=== PATIENT | female | born 1965 | race Caucasian/White ===

== ENCOUNTER 2022-12-25 11:34 | Outpatient (OUT) | payer OTHER, MEDICARE, SELFPAY ==
[2022-12-25 12:07] LABS: Basophils Percent Auto 0.5 % (0.2-2.0); Eosinophils Absolute Auto 0.1 10^3/uL (0.0-0.7); Eosinophils Percent Auto 0.9 % (0.9-7.0); Hematocrit 47.8 % (36.0-48.0); Hemoglobin 16.7 g/dL (12.0-16.0); Immature Granulocytes Abs Auto 0.06 10^3/uL (0.00-0.03); Immature Granulocytes Pct Auto 0.8 % (0.0-0.5); Lymphocytes Percent Auto 26.1 % (20.5-60.0); Mean Corpuscular HGB Conc 34.9 g/dL (29.9-35.2); Mean Corpuscular Hemoglobin 32.5 pg (26.7-34.0); Mean Platelet Volume 8.7 fL (9.5-13.5); Monocytes Absolute Auto 0.4 10^3/uL (0.3-0.8); Monocytes Percent Auto 5.3 % (1.7-12.0); Neutrophils Percent Auto 66.4 % (43.0-75.0); Platelet Count 253 10^3/uL (150-450); Red Blood Count 5.14 10^6/uL (4.20-5.40); Red Cell Distribution Width 12.2 % (11.0-15.0); White Blood Count 7.6 10^3/uL (4.0-11.0)
[2022-12-25 12:50] LABS: Estimated Average Glucose 105 mg/dL; Glycohemoglobin A1C 5.3 % (4.5-6.2)
[2022-12-25 13:03] LABS: Alanine Aminotransferase 23 U/L (14-59); Albumin Globulin Ratio 0.9; Albumin Level 3.8 g/dL (3.4-5.0); Alkaline Phosphatase 94 U/L (46-116); Anion Gap 10.4; Aspartate Amino Transferase 16 U/L (15-37); BUN Creatinine Ratio 21.4; Bilirubin Total 0.8 mg/dL (0.2-1.0); Calcium 9.4 mg/dL (8.5-10.1); Carbon Dioxide 29.6 mmol/L (21.0-32.0); Chloride 102 mmol/L (98-107); Chol HDL Ratio 2.9; Cholesterol 164 mg/dL (<=200); Estimated GFR (African America >60 (>=60); Estimated GFR (Non-African Ame >60 (>=60); Free T3 2.73 pg/mL (2.18-3.98); Globulin 4.1 g/dL; Glucose 113 mg/dL (74-106); HDL Cholesterol 57 mg/dL (40-60); Sodium 138 mmol/L (136-145); Thyroid Stimulating Hormone 0.578 uIU/mL (0.358-3.740); Total Protein 7.9 g/dL (6.4-8.2); Triglycerides 214 mg/dL (<=150); VLDL CHOLESTEROL 42.8 mg/dL
[2022-12-26 10:10] LABS: Insulin 13.5 uIU/mL (2.6-24.9)
== END 2022-12-25 11:35 | disposition home or self-care (01) ==
LOC: LAB 11:40
PROVIDERS: PCP Nurse Practitioner Family; Visit Provider Nurse Practitioner Family
DX: Z00.00 Encounter for general adult medical examination without abnormal findings (principal); E78.5 Hyperlipidemia, unspecified; R53.83 Other fatigue; R73.09 Other abnormal glucose; Z51.81 Encounter for therapeutic drug level monitoring
CPT/HCPCS: 36415; 80053; 80061; 82306; 83036; 83525; 83540; 84436; 84443; 84481; 85025

== ENCOUNTER 2023-02-08 12:39 | Outpatient (OUT) | payer OTHER, MEDICARE, SELFPAY ==
--- NOTE | 2023-02-08 12:58 | CT_ITS ---
[address] [address] Patient Name: ANABEL KILGORE MRN: [id number] date: 1965 Sex: F Assigned Patient Location: CT Current Patient Location: Accession/Order Number: [id number] Exam Date: 02/08/2023 12:50 Report Date: 02/09/2023 08:26 At the request of: WING WRIGHT Procedure: CT lung screening low-dose EXAMINATION: CT lung screening low-dose HISTORY: Nicotine Dependence F17.219 COMPARISON: CT chest 01/16/2022, 07/25/2021 TECHNIQUE: Axial, Coronal, and Sagittal images were created without the administration of IV contrast material. Dose reduction techniques were achieved by using automated exposure control and/or adjustment of mA and/or kV according to patient size and/or use of iterative reconstruction technique. FINDINGS: LUNGS: Mild emphysematous changes. No suspicious nodules or acute infiltrates. PLEURA: No mass, effusion, or pneumothorax. VASCULATURE: No abnormality. CARY: No mass or pathologic adenopathy. MEDIASTINUM: No mass or pathologic adenopathy. CARDIAC: No enlargement, pericardial thickening, or significant calcification. AORTA: No aneurysm or dissection. CHEST WALL: No mass or axillary adenopathy BONES: Anterior mechanical fusion of lower cervical spine. No bone lesion or fracture. LIMITED ABDOMEN: No suspicious findings. Limited images of the upper abdomen. OTHER: Negative. CT/CT lung screening low-dose IMPRESSION: 1. Lung-RADS Category 1 Negative. No nodules and definitely benign nodules. Continue annual screening with LDCT in 12 months. Electronically authenticated by: JACKIE NGUYEN Date: 02/09/2023 08:26
== END 2023-02-08 12:40 | disposition home or self-care (01) ==
LOC: CT 12:41
PROVIDERS: PCP Nurse Practitioner Family; Visit Provider Internal Medicine
DX: F17.219 Nicotine dependence, cigarettes, with unspecified nicotine-induced disorders (principal)
CPT/HCPCS: 71271

== ENCOUNTER 2024-01-01 12:58 | Outpatient (OUT) | payer OTHER, MEDICARE, SELFPAY ==
--- OUTSIDE RECORDS SUMMARY | 2024-01-01 13:16 | XMS_ITS | CCD ---
Author Organization [facility]iniSyva Care Team Providers Care Vc++ Developer Name Role Phone Kacey Brown Unavailable KACEY RIVERA Primary Care Physician [phone] SAMSA, WING Consulting Unavailable SAMSA, WING Attending Unavailable MCKAYLA GIVENS Primary Care Unavailable SAMSA, WING Admitting Unavailable SAMSA, WING Admitting Unavailable SAMSA, WING Attending Unavailable MCKAYLA GIVENS Primary Care Unavailable DR JACKIE NGUYEN Consulting Unavailable SAMSA, WING Consulting Unavailable MIGUEL, KACEY Primary Care Unavailable MIGUEL KACEY Consulting Unavailable KACEY RIVERA Attending Unavailable MIGUEL, KACEY Admitting Unavailable MIGUEL, KACEY Primary Care Unavailable SAMSA, WING Attending Unavailable SAMSA, WING Admitting Unavailable JANINE, DR AWAIS Cheatham Consulting Unavailable SAMSA, WING Consulting Unavailable MIGUEL, KACEY Admitting Unavailable MIGUEL, KACEY Primary Care Unavailable MIGUEL, KACEY Attending Unavailable WEST, DR AWAIS Cheatham Consulting Unavailable MIGUEL, KACEY Consulting Unavailable MISC, DR WORKMAN Attending Unavailable MISC, DR WORKMAN Admitting Unavailable MCKAYLA GIVENS Primary Care Unavailable MISC, DR WORKMAN Admitting Unavailable MISC, DR WORKMAN Attending Unavailable MCKAYLA GIVENS Primary Care Unavailable MIGUEL, KACEY Admitting Unavailable MIGUEL, KACEY Primary Care Unavailable MIGUEL KACEY Consulting Unavailable KACEY RIVERA Attending Unavailable MD Mckayla Givens Primary Care Provider CAL Brown Attending Provider Kacey Brown Attending Unavailable Kacey Brown Admitting Unavailable Mckayla Givens Primary Care Unavailable NONE, XXXX Referring Unavailable Adriel Brantley Attending Unavailable NONE, XXXX Referring Unavailable Jacky Thomson Admitting Unavaila ble Jacky Thomson Attending Unavaila ble Allergies Allergy Classification Reported Allergen(s) Allergy Type Date of Onset Reaction(s) Facility (8 sources) HYDROmorphone; Translations: [hydromorphone] Drug Allergy 0 Vomiting (disorder) [facility] (2 sources) HYDROmorphone; Translations: [Dilaudid] Drug Allergy 4 [facility] Repository (1 source) HYDROmorphone Drug Allergy 3 [facility] Repository Medications Current Medications Medication Drug Class(es) Dates Sig (Normalized) Sig (Original) [id number] 200 actuat albuterol 0.09 mg/actuat metered dose inhaler (4 sources) beta2-Adrenergic Agonist Start: 12-15-2019 take 1 puff(s) by inhalation every four hours Albuterol Sulfate Active 2 PUFF INHALATION Q4H December 14, 2019 11:00pm take 2 puff(s) by mo uth every four hours as needed Albuterol Sulfate HFA 108 (90 Base) MCG/ ACT INHALE 2 PUFFS BY MOUTH EVERY 4 HOURS NEEDED FOR SHORTNESS OF BREATH Inhalation for 16 Active take 2 puff(s) by mo uth every four hours as needed Albuterol Sulfate HFA 108 (90 Base) MCG/ ACT INHALE 2 PUFFS BY MOUTH EVERY 4 HOURS NEEDED FOR SHORTNESS OF BREATH Inhalation for 16 Active amLODIPine 5 mg oral tablet (1 source) Dihydropyridine Calcium Channel David Start: 04-15-2020 take 1 tablet by mouth once daily amLODIPine 5 mg Tab 5 mg = 1 tab(s), Oral, Daily, # 30 tab(s), Refills(s) 6, Pharmacy: [facility]/pharmacy #[id number], 160, cm, 04/15/20 13:43:00 EST, Height/Length Dosing, 59, kg, 04/15/20 13:43:00 EST, Weight Dosing Start Date: 04/15/20 Status: Ordered aspirin 81 mg delayed release oral tablet (8 sources) Platelet Aggregation Inhibitor, Nonsteroidal Anti-inflammatory Drug Start: 08-01-2018 take 1 tablet by mouth once daily aspirin 81 mg Oral EC Tab 81 mg = 1 tab(s), Oral, Daily, # 30 tab(s), Refills(s) 0 Start Date: 08/01/18 Status: Ordered take 1 tablet by mouth once tulio y Aspirin 81 81 MG 1 tablet Orally Once a day Active atorvastatin 40 mg oral tablet (2 sources) HMG-CoA Reductase Inhibitor Start: 05-28-2023 atorvastatin 40 mg Tab Refills(s) 0 Start Date: 05/28/23 Status: Ordered cephalexin 500 mg oral capsule (1 source) Cephalosporin Antibacterial Start: 12-23-2019 take 1 capsule by mouth every eight hours Cephalexin (Keflex) 500 mg capsule Active 500 MG PO Q8H December 22, 2019 11:00pm clopidogrel 75 mg oral tablet (1 source) P2Y12 Platelet Inhibitor Start: 12-15-2019 take 75 mg by mouth once daily Clopidogrel Active 75 MG PO Daily December 14, 2019 11:00pm cyclobenzaprine hydrochloride 10 mg oral tablet (1 source) Muscle Relaxant Start: 12-23-2019 take 10 mg by mouth three times daily Cyclobenzaprine Active 10 MG PO Three times daily December 22, 2019 11:00pm 120 actuat formoterol fumarate 0.0048 mg/actuat / glycopyrrolate 0.009 mg/actuat metered dose inhaler (4 sources) beta2-Adrenergic Agonist Start: 12-15-2019 Glycopyrrolate-Formo terol (Bevespi Aerosphere) 9-4.8 mcg Hfa Aerosol Inhaler Active 2 PUFF INHALATION Twice daily December 14, 2019 11:00pm take 2 puff(s) by mo ut twice daily as needed Bevespi Aerosphere 9-4.8 MCG/ACT INHALE 2 PUFFS BY MOUTH TWICE A DAY Inhalation for 30 Not-Taking/PRN 24 hr isosorbide mononitrate 30 mg extended release oral tablet (7 sources) Nitrate Vasodilator Start: 09-10-2023 take 1 tablet by mouth once daily in the morning isosorbide mononitrate 30 mg ER Tab 30 mg = 1 tab(s), Oral, qAM, # 90 tab(s), Refills(s) 3, Pharmacy: [facility]/pharmacy #[id number], 160, cm, 05/28/23 13:19:00 EDT, Height/Length Dosing, 62.6, kg, 05/28/23 13:19:00 EDT, Weight Dosing Start Date: 09/10/23 Status: Ordered Start: 06-15-2022 take 1 tablet by james th once daily in the morning isosorbide mononitrate 30 mg ER Tab 30 mg = 1 tab(s), Oral, qAM, # 90 tab(s), Refills(s) 3, Pharmacy: [facility]/pharmacy #[id number], 160, cm, 06/15/22 12:54:00 EDT, Height/Length Dosing, 63.8, kg, 06/15/22 12:54:00 EDT, Weight Dosing Start Date: 06/15/22 Status: Ordered Start: 05-02-2021 take 1 tablet by james th once daily in the morning isosorbide mononitrate 30 mg ER Tab 30 mg = 1 tab(s), Oral, qAM, # 90 tab(s), Refills(s) 3, Pharmacy: [facility]/pharmacy #[id number], 160, cm, 04/15/20 13:43:00 EST, Height/Length Dosing, 59, kg, 04/15/20 13:43:00 EST, Weight Dosing Start Date: 05/02/21 Status: Ordered Isosorbide [place] itrate Active lisinopril 20 mg oral tablet (8 sources) Angiotensin Converting Enzyme Inhibitor Start: 06-15-2022 take 1 tablet by mouth once daily lisinopril 20 mg Tab 20 mg = 1 tab(s), Oral, Daily, # 90 tab(s), Refills(s) 3, Pharmacy: [facility]/pharmacy #[id number], 160, cm, 06/15/22 12:54:00 EDT, Height/Length Dosing, 63.8, kg, 06/15/22 12:54:00 EDT, Weight Dosing Start Date: 06/15/22 Status: Ordered Start: 12-15-2019 take 1 tablet by james th once daily lisinopril 10 mg Tab 10 mg = 1 tab(s), Oral, Daily, # 90 tab(s), Refills(s) 1, Pharmacy: [facility]/pharmacy #[id number], 160, cm, 04/15/20 13:43:00 EST, Height/Length Dosing, 59, kg, 04/15/20 13:43:00 EST, Weight Dosing Start Date: 05/02/21 Status: Ordered take 1 tablet by james th once daily Lisinopril 2.5 MG TAKE 1 TABLET BY MOUTH EVERY DAY Oral for 90 Active Nitro 0.4 mg Tab (3 sources) Start: 05-25-2021 Nitro 0.4 mg T ab = 1 tab(s), SubLingual, q5min, PRN Chest pain, If chest pain not relieved in 5 minutes after first dose, seek immediate medical attention, # 25 tab(s), Refills(s) 1, Pharmacy: [facility]/pharmacy #[id number], 160, cm, 05/17/21 13:29:00 EST, Height/Length Dosing, 60, kg, 05/17/21 13:29:00 EST, Weight Dosing Start Date: 05/25/21 Status: Ordered Start: 05-25-2021 Nitro 0.4 mg T ab = 1 tab(s), SubLingual, q5min, PRN Chest pain, If chest pain not relieved in 5 minutes after first dose, seek immediate medical attention, # 25 tab(s), Refills(s) 1, Pharmacy: [facility]/pharmacy #[id number], 160, cm, 05/17/21 13:29:00 EST, Height/Length Dosing, 6... Start Date: 05/25/21 Status: Ordered nitrofurantoin, macrocrystals 25 mg / nitrofurantoin, monohydrate 75 mg oral capsule (2 sources) Nitrofuran Antibacterial Start: 02-21-2023 take 1 capsule by mouth every twelve hours Macrobid 100 MG 1 cap(s) Orally bid for 5 day(s) Feb, Active nitroglycerin 0.4 mg/actuat mucosal spray (1 source) Nitrate Vasodilator Start: 05-25-2021 Nitro 0.4 mg Tab = 1 tab(s), SubLingual, q5min, PRN Chest pain, If chest pain not relieved in 5 minutes after first dose, seek immediate medical attention, # 25 tab(s), Refills(s) 1, Pharmacy: [facility]/pharmacy #[id number], 160, cm, 05/17/21 13:29:00 EST, Height/Length Dosing, 6... Start Date: 05/25/21 Status: Ordered oxyCODONE hydrochloride 5 mg oral capsule (1 source) Opioid Agonist Start: 12-23-2019 take 5-10 mg by mouth every six hours Oxycodone Active 5 - 10 MG PO Q6H 60 December 23, 2019 phenazopyridine hydrochloride 200 mg oral tablet (2 sources) Start: 02-21-2023 take 1 tablet by mouth every eight hours Pyridium 200 MG 1 tablet after meals Orally Three times a day for 2 day(s) Feb, Active 12 hr ranolazine 1000 mg extended release oral tablet (2 sources) Anti-anginal Start: 06-15-2022 take 1 tablet by mouth twice daily ranolazine 1000 mg oral tablet, extended release 1,000 mg = 1 tab(s), Oral, BID, # 180 tab(s), Refills(s) 3, Pharmacy: [facility]/pharmacy #[id number], 160, cm, 06/15/22 12:54:00 EDT, Height/Length Dosing, 63.8, kg, 06/15/22 12:54:00 EDT, Weight Dosing Start Date: 06/15/22 Status: Ordered rosuvastatin calcium 40 mg oral tablet (6 sources) HMG-CoA Reductase Inhibitor Start: 12-15-2019 End: 07-27-2022 take 1 tablet by mouth once daily at bedtime rosuvastatin 40 mg Tab 40 mg = 1 tab(s), Oral, Once a day (at bedtime), X 90 day(s), # 90 tab(s), Refills(s) 3, Pharmacy: [facility]/pharmacy #[id number], 160, cm, 05/17/21 13:29:00 EST, Height/Length Dosing, 60, kg, 05/17/21 13:29:00 EST, Weight Dosing Start Date: 08/01/21 Stop Date: 07/27/22 Status: Ordered ubiquinol 100 mg oral capsule (2 sources) Qunol Ultra CoQ1 0 100-150 MG-UNIT as directed Orally Active Ventolin HFA 90 mcg/inh Aerosol (4 sources) Start: 02-01-2015 Ventolin HFA 90 mcg/inh Aerosol 2 puff(s), Inhalation, Refill(s) 0 Start Date: 02/01/15 Status: Ordered Completed/Discontinued Medications Medication Drug Class(es) Dates Sig (Normalized) Sig (Original) Blood Pressure Machine with Adult Bicep Cuff (4 sources) Start: 11-03-2019 Blood Pressure Machine with Adult Bicep Cuff Blood Pressure Machine with Adult Bicep Cuff, See Instructions, 1 EA, 0, Monitor Daily BP readings Dx I10, Supply Start Date: 11/03/19 Status: Ordered predniSONE 20 mg oral tablet (4 sources) Start: 07-13-2021 take 1 tablet by mouth every twelve hours predniSONE 20 MG 1 tablet Orally bid for 5 day(s) July, Not-Taking/PRN Start: 04-04-2020 predniSONE 10 mg Tab -, Oral, As Directed, 6 tabs for 1 days,5 tabs for 1 days,4 tabs for 1 days,3 tabs for 1 days,2 tabs for 1 days,1 tab for 1 days, # 42 tab(s), Refills(s) 0 Start Date: 04/04/20 Status: Ordered Wrist Splint/Right XL - (3 sources) Start: 07-13-2021 Wrist Splint/R ight XL - as directed tendonitis right thumb July, Not-Taking/PRN Start: 07-13-2021 Wrist Splint/R ight XL - as directed tendonitis right thumb July, Active Problems Active Problems Problem Classification Problem Date Documented Da te Episodic/Chronic Chronic obstructive pulmonary disease and bronchiectasis (9 sources) Chronic obstructive lung disease; Translations: [Chronic obstructive pulmonary disease, unspecified] Onset: 10-06-2021 Chronic Coronary atherosclerosis and other heart disease (7 sources) Coronary atherosclerosis; Translations: [Atherosclerotic heart disease of [place] coronary artery without angina pectoris] Onset: 11-18-2021 Chronic Essential hypertension (7 sources) Essential hypertension; Translations: [Essential (primary) hypertension] Onset: 11-18-2021 Chronic Genitourinary symptoms and ill-defined conditions (3 sources) Dysuria; Translations: [Dysuria] Onset: 02-21-2023 Episodic Nonspecific chest pain (2 sources) Chest pain; Translations: [Chest pain, unspecified] Onset: 06-15-2022 Episodic Other circulatory disease (4 sources) Peripheral arterial occlusive disease 02-01-2015 Chronic Other lower respiratory disease (4 sources) Solitary pulmonary nodule; Translations: [SOLITARY PULMONARY NODULE] Onset: 01-16-2022 Episodic Other nervous system disorders (1 source) Disease of spinal cord, unspecified; Translations: [DISEASE OF SPINAL CORD UNSPECIFIED] Onset: 04-11-2021 Chronic Other nervous system disorders (1 source) Postoperative pain ; Translations: [Other acute postprocedural pain] 02-21-2023 Episodic Other screening for suspected conditions (not mental disorders or infectious disease) (5 sources) Encounter for screening mammogram for malignant neoplasm of breast; Translations: [Encounter for screening for malignant neoplasm of respiratory organs] Onset: 07-29-2021 Episodic Residual codes; unclassified (1 source) Family history of malignant neoplasm of breast; Translations: [FAMILY HX MALIG NEOPLASM OF BREAST] Onset: 01-08-2022 Episodic Residual codes; unclassified (1 source) Family history of malignant neoplasm of trachea, bronchus and lung; Translations: [FAM HX MALIG NEOPLSM TRACH BRON LNG] Onset: 01-08-2022 Episodic Spondylosis; intervertebral disc disorders; other back problems (4 sources) Cervical disc disorder with myelopathy; Translations: [Cervical disc disorder at C5-C6 level with myelopathy] 02-21-2023 Chronic Spondylosis; intervertebral disc disorders; other back problems (6 sources) Cervical disc disorder with radiculopathy; Translations: [Cervical disc disorder at C6-C7 level with radiculopathy] Episodic Substance-related disorders (10 sources) Nicotine dependence; Translations: [Nicotine dependence, unspecified, uncomplicated] Onset: 07-25-2021 Chronic Comment on above: Added secondary to d ocumentation in Social History. Urinary tract infections (2 sources) Acute cystitis with hematuria Episodic Past or Other Problems Problem Classification Problem Date Documented Date Episodic/Chronic Other connective tissue disease (1 source) Pain in right hand Onset: 07-13-2021 Resolved: 07-13-2021 Episodic Other connective tissue disease (1 source) Other enthesopathies, not elsewhere classified Onset: 07-13-2021 Resolved: 07-13-2021 Episodic Other connective tissue disease (1 source) Other symptoms and signs involving the musculoskeletal system; Translations: [OTH SX AND SYMP INVOLV MUSCULOSKELTAL] Onset: 04-11-2021 Episodic Other nervous system disorders (4 sources) Paresthesia of skin; Translations: [PARESTHESIA OF SKIN] Onset: 04-07-2021 Episodic Results Test Name Value Interpretation Reference Range Facility Heart and Vascular Office/Cl inic Noteon 11-16-2023 Heart and Vascular Office/Clinic Note [facility] V[facility] Office/Clinic Note Chief Complaint 6 month f/u CAD History of Present Illness The patient is a 58-year-old female with past cardiac history of coronary artery disease, multiple PCI in the past, with last invasive assessment in 2019, who presents today for a scheduled follow-up appointment. She used to follow with Dr. Thomson. She states that she has been feeling quite well cardiac garcia. She specifically reports no chest pain, shortness of breath, dizziness, lightheadedness, palpitations, syncope or presyncope. States compliance with the current treatment plan. Denies any side effects. Unfortunately, still continues to smoke. Review of Systems ROS - Provider Constitutional: no fever, no chills, no fatigue Skin:no rash, no lesions ENMT: no ear pain, no sore throat, no congestion. Respiratory: no shortness of breath, no cough, no wheezing. Cardiovascular: no chest pain, no palpitations, no edema. Gastrointestinal: no nausea, no vomiting, no diarrhea, no GI bleeding. Genitourinary: no dysuria, no frequencyno hematuria Musculoskeletal: no back pain, no trauma. Neurologic: no headache, no dizziness, no numbness, no weakness. Psychiatric: no sleeping problems, no irritability, no mood swings/depression. Heme/Lymph: no bleeding tendency, no bruising tendency, no petechiae, Allergy/Immuno logic: no seasonal allergies, no food allergies, no recurrent infections Physical Exam Vitals & Measurements HR: 104(Peripheral) RR: 18 BP: 122/78 SpO2: 96% HT: 63 in HT: 160 cm WT: 59.5 kg WT: 130.9 lb BMI: 23.24 General: alert, no acute distress Neck: Supple, noJVD nocarotid bruit Cardiovascular: regular rate and rhythm, no murmur normal peripheral perfusion Respiratory: Lungs CTAB, respirations non labored Extremities: no edema left lower extremity. no edema right lower extremity Neurological: oriented x 4, LOC appropriate for age, speech normal Skin: Warm, dry, intact- no rash or concerning lesions Assessment/Plan 1. CAD (coronary artery disease) (I25.10: Atherosclerotic heart disease of [place] coronary artery without angina pectoris) The patient is doing well and asymptomatic from the cardiac standpoint. I would like to continue same management. The patient was advised to quit smoking. Lipids are managed by primary services. Historically, very well-controlled LDL. Continue high intensity statin. Can provide refill for nitroglycerin as needed if necessary 2. HTN (hypertension) (I10: Essential (primary) hypertension) Blood pressure is well-controlled. Follow-up No qualifying data available 6 months Problem List/Past Medical History Ongoing CAD (coronary artery disease) COPD (chronic obstructive pulmonary disease) HTN (hypertension) PAD (peripheral artery disease) Smoker Historical No qualifying data Procedure/Surgical History Cardiac catheterization, left heart (04/05/2020), PCI - Percutaneous coronary intervention (07/30/2018), Ectopic (1982). Medications aspirin 81 mg Oral EC Tab, 81 mg= 1 tab(s), Oral, Daily atorvastatin 40 mg Tab Blood Pressure Machine with Adult Bicep Cuff, See Instructions isosorbide mononitrate 30 mg ER Tab, 30 mg= 1 tab(s), Oral, qAM, 3 refills lisinopril 20 mg Tab, 20 mg= 1 tab(s), Oral, Daily, 3 refills Nitro 0.4 mg Tab, 1 tab(s), SubLingual, q5min, PRN, 1 refills Ventolin HFA 90 mcg/inh Aerosol, 2 puff(s), Inhalation Allergies Dilaudid (Vomiting) Social History Alcohol - High Risk, 02/01/2015 Current, Liquor, 1-2 times per week, 02/01/2015 Substance Abuse - Denies Substance Abuse, 02/01/2015 Tobacco - High Risk, 02/01/2015 10 or more cigarettes (1/2 pack or more)/day in last 30 days Tobacco Use:. Never Smokeless Tobacco Use:. Cigarettes, Household tobacco concerns: No., 11/16/2023 Family History Heart disease: Father. Normal [facility] Comment on above: Result Comment: Elec tronically Signed By: Karon ANTHONY, Adriel De León\.br\Date and Time Signed: 11/16/23 13:09 EDT Heart and Vascular Office/Cl inic Noteon 06-20-2023 Heart and Vascular Office/Clinic Note Chief Complaint annual follow up History of Present Illness The patient presents for evaluation of multiple medical concerns. Patient has a history of CAD and peripheral arterial disease with prior PCI. The patient denies any chest pain, nausea, diaphoresis, orthopnea, nocturnal dyspnea, lower extremity edema, palpitations, syncope. She experiences mild difficulty breathing, primarily attributed to her COPD. However, finding the appropriate inhalers has been challenging due to insurance coverage limitations. Despite this, she has not reported any chest pains. Her leg issues have improved notably. Since starting COQ10, she has noticed a significant reduction in leg cramps. She no longer wakes up with toe cramps or jumps out of bed due to discomfort. Additionally, her calf muscles have not been locking up while walking. Review of Systems PHQ Score Initial Depression Screen Score: 0 SCORE Constitutional: no fever, no sweats, no weakness Skin: no rash, no lesions, no bruising/petechiae ENMT: no sore throat, no congestion, no hoarseness Respiratory: no shortness of breath, no cough, no orthopnea, no wheezing Cardiovascular: no chest pain, no palpitations, no edema Gastrointestinal: no nausea, no vomiting, no diarrhea, no GI bleeding Genitourinary: no anuria/oliguria no hematuria Musculoskeletal: no back pain, no trauma Neurologic: no headache, no dizziness, no numbness, no weakness Psychiatric: no sleeping problems, no irritability, no anxiety/depression. Heme/Lymph: no bleeding tendency, no bruising tendency Allergy/Immunologic: no recurrent infections, no impaired immunity Additional ROS info: Except as noted in the above Review of Systems and in the History of Present Illness all other systems have been reviewed and are negative or noncontributory Physical Exam Vitals & Measurements HR: 80(Peripheral) BP: 120/88 SpO2: 94% HT: 63 in HT: 160 cm WT: 62.6 kg WT: 137.72 lb BMI: 24.45 General: alert, no acute distress Skin: warm, dry intact Head: atraumatic, normocephalic Neck: trachea midline, no JVD, no bruit Eye: normal conjunctiva, sclera clear ENMT: oral mucosa moist Cardiovascular: regular rate and rhythm, no murmur, normal peripheral perfusion Respiratory: lungs CTA, respirations non labored Chest wall: no deformity. Gastrointestinal: soft, non-distended, no tenderness, no guarding. Back: no tenderness, normal ROM, normal alignment. Extremities: no edema, no deformity, no trauma Neurological: oriented x 4, LOC appropriate for age, sensation equal & normal bilaterally, speech normal Psychiatric: cooperative, affect appropriate for age, normal judgement, normal psychiatric thoughts. Assessment/Plan Her blood pressure and heart rate look great. Continue current treatment follow-up in 6 months 1. CAD: APT, beta-david, statin, risk factor modification. 2. HTN: BP control with antihypertensives targeting blood pressure less than 130/80. If control is not currently achieved we will be adding additional antihypertensive or increasing dose. 3. HPL: HPL: Statin is indicated. Patient is not intolerant to statin. Continue current therapy and monitor lipid panel yearly. 4. PAD: Clinically stable no significant claudication Follow-up The patient will follow up in 6 months. Portions of this record may have been created with voice recognition artificial intelligence software, specifically [employer], [employer] and or [employer]. Substitutions may have occurred due to the inherent limitations of voice recognition and artificial intelligence software. ATTESTATION: Documentation services were performed after patient or guardian consented to allow [employer] to record this visit. BRETT human resources operations specialist and provider reviewed before signing. BRETT: Perla Emerson Follow-up No qualifying data available Problem List/Past Medical History Ongoing CAD (coronary artery disease) COPD (chronic obstructive pulmonary disease) HTN (hypertension) PAD (peripheral artery disease) Smoker Historical No qualifying data Procedure/Surgical History Cardiac catheterization, left heart (04/05/2020), PCI - Percutaneous coronary intervention (07/30/2018), Ectopic (1982). Medications aspirin 81 mg Oral EC Tab, 81 mg= 1 tab(s), Oral, Daily atorvastatin 40 mg Tab Blood Pressure Machine with Adult Bicep Cuff, See Instructions isosorbide mononitrate 30 mg ER Tab, 30 mg= 1 tab(s), Oral, qAM, 3 refills lisinopril 20 mg Tab, 20 mg= 1 tab(s), Oral, Daily, 3 refills Nitro 0.4 mg Tab, 1 tab(s), SubLingual, q5min, PRN, 1 refills ranolazine 1000 mg oral tablet, extended release, 1000 mg= 1 tab(s), Oral, BID, 3 refills, Not taking Ventolin HFA 90 mcg/inh Aerosol, 2 puff(s), Inhalation Allergies Dilaudid (Vomiting) Social History Alcohol - High Risk, 02/01/2015 Current, Liquor, 1-2 times per week, 02/01/2015 Substance Abuse - Denies Substance Abuse, (more content not included)... Normal [facility] Comment on above: Result Comment: Elec tronically Signed By: Berto ANTHONY, Jacky Ashley\.br\Date and Time Signed: 06/20/23 11:57 EDT\.br\Electronically Co-Signed By: Perla Emerson\.br\Date and Time Co-Signed: 05/28/23 14:17 EDT Consent for Treatmenton 05-10 Consent for Treatment [id number] .00TIFF Normal [facility] Physician Orderon 05-28-2023 Physician Order [id number]# 1.00TIFF Normal [facility] Outside Recordson 02-21-2023 Outside Records [id number]# 1.00TIFF Normal [facility] Urinalysis - AUTOMATEDon Appearance (U) cloudy [employer] Other Bilirubin Ql (U) Negative [employer] Other Color (U) yellow [employer] Other Glucose Ql (U) Negative [employer] Other Hemoglobin Ql (U) [employer] Other Ketones Ql (U) Negative [employer] Other Leukocyte esterase Test strip Ql (U) Networked [employer] Other Nitrite Ql (U) Negative [employer] Other pH (U) 6.5 [pH] [employer] Other Protein Ql (U) Negative [employer] Other Specific gravity (U) [Rel density] 1.025 [employer] Other Urobilinogen (U) [Mass/Vol] 0.2 mg/dL [employer] Other Urinalysis - AUTOMATED [employer] [facility] [employer] Other Urine Cultureon 02-21-2023 Bacteria identified Cx Nom (U) Reason for Exam Dysuria Urine Reason for Exam: Dysuria : Urine >100,000 colonies/ml mixed bacterial skin contaminants 2 Days PERFORMED BY: [facility] [address] [id number] PATHOLOGIST MEDICAL STAFF CREDENTIALING COORDINATOR SRINIVAS BRAVO M.D. Normal [facility] Comment on above: Performed By: #### C UU #### [facility] [address] [place], [place] [address] Bacteria identified Cx Nom (U) [employer] [facility] [employer] Other LIPID PROFILEon 02-09-2022 CHOL-HDL RATIO NORM SEE BELOW Normal [facility] [place] Comment on above: Result Comment: 3.3 - 4.4 LOW RISK 4.4 - 7.1 AVERAGE RISK 7.1 - 11.0 MODERATE RISK >11.0 HIGH RISK Performed By: #### L IPID #### [facility] [address] [address] [address] Carolynn Hook Cholesterol [Mass/Vol] 149 mg/dL Normal <=200 [facility] Comment on above: Performed By: #### L IPID #### [facility] [address] [address] [address] Carolynn Hook Cholesterol in HDL [Mass/Vol] 50 mg/dL Normal 40-60 [facility] Comment on above: Performed By: #### L IPID #### [facility] [address] [address] [address] Carolynn Hook Cholesterol in LDL [Mass/Vol] 57.6 mg/dL Normal [facility] Comment on above: Performed By: #### L IPID #### [facility] [address] [address] [address] Carolynn Hook Cholesterol.total/C holesterol in HDL [Mass ratio] 3.0 {ratio} Normal [facility] Comment on above: Performed By: #### L IPID #### [facility] [address] [place], [place] [address] Dr. Carolynn Hook HDL NORMAL > or = 60 mg/dl - LO W CARDIOVASCULAR RISK <40 mg/dl - HIGH CARDIOVASCULAR RISK Normal [facility] Comment on above: Performed By: #### L IPID #### [facility] [address] [place], [place] [address] Dr. Carolynn Hook LDL CALC NORMAL SEE BELOW Normal [facility] Comment on above: Result Comment: <100 mg/dl OPTIMAL 100 - 129 mg/dl NEAR OR ABOVE OPTIMAL 130 - 159 mg/dl BORDERLINE HIGH 160 - 189 mg/dl HIGH >190 mg/dl VERY HIGH Performed By: #### L IPID #### [facility] [address] [address] [address] Carolynn Hook Triglyceride [Mass/Vol] 207 mg/dL Critically high <=150 [facility] Comment on above: Performed By: #### L IPID #### [facility] [address] [address] [address] Carolynn Hook VLDL CALC 41.4 mg/dL Normal [facility] Comment on above: Performed By: #### L IPID #### [facility] [address] CHEST WO CONon 01-17-2022 CT CHEST WO CON EXAMINATION: CT CHES T WO CON HISTORY: Solitary nodule of lung COMPARISON: 07/25/2021 TECHNIQUE: Multi-planar CT images were created with IV contrast. Axial, Coronal, and Sagittal images. Dose reduction techniques were achieved by using automated exposure control and/or adjustment of mA and/or kV according to patient size and/or use of iterative reconstruction technique. FINDINGS: LUNGS: Diffuse peribronchial thickening. Mild diffuse centrilobular emphysema. Scattered punctate pulmonary nodules, nonspecific. There is been interval resolution of geographic groundglass opacity in the left lower lobe. PLEURA: No mass, effusion, or pneumothorax. VASCULATURE: No abnormality. CARY: No mass or adenopathy. MEDIASTINUM: No mass or adenopathy. CARDIAC: No cardiomegaly or pericardial effusion. Heavy coronary atherosclerosis AORTA: No aneurysm or dissection. CHEST WALL: No mass or axillary adenopathy. BONES: No bone lesion or fracture. Cervical fusion hardware LIMITED ABDOMEN: No suspicious findings. Limited images of the upper abdomen. OTHER: Negative. IMPRESSION: Interval resolution of left lower lobe nodule Electronically authenticated by: AWAIS MEHTA Date: 2022-01-17 07:19 Normal [facility] MG MAMM SCREEN 3D SADA CADon 01-02-2022 MG MAMM SCREEN 3D SADA CAD Patient: CARMEN KILGORE V. Exam Date: 01/02/2022 : 1965 Gender:F Ordering : KACEY RIVERA [facility] Admission #: [id number] Family : Order #: [id number] CLICK HERE TO VIEW EXAM RADIOLOGY REPORT PROCEDURE: MAMMOGRAM SCREENING 3D BILATERAL CAD COMPARISON: None. INDICATIONS: Screening mammography Calculator Name NCI Breast Cancer Risk Assessment Tool 5 Year Breast Cancer Risk 2.50% Lifetime Breast Cancer Risk 14.50% Personal Breast Cancer No Personal Ovarian Cancer No Treatments None Family Cancers Mother with breast cancer at age 46; Mother with lung cancer at age 45. LOCATION: [facility] BREAST COMPOSITION: Scattered areas fibroglandular density. FINDINGS: DIAGNOSTIC CATEGORY 2--BENIGN FINDING: Scattered benign-appearing calcifications are present. Scattered benign-appearing lymph nodes are present. RIGHT BREAST: No significant suspicious finding. LEFT BREAST: No significant suspicious finding. RECOMMENDATIONS: ROUTINE MAMMOGRAM AND CLINICAL EVALUATION IN 12 MONTHS. PLEASE NOTE: A NORMAL MAMMOGRAM DOES NOT EXCLUDE THE POSSIBILITY OF BREAST CANCER. A CLINICALLY SUSPICIOUS PALPABLE LUMP SHOULD BE BIOPSIED. Dictated by: Awais Mehta MD on 01/02/2022 at 13:05 Approved by: Awais Mehta MD on 01/02/2022 at 13:06 Normal [facility] INSULINon 11-01-2021 Insulin 12.8 uIU/mL Normal 2.6-24.9 [facility] Comment on above: Performed By: #### I NSULIN #### [facility] [address] [address] [address] Carolynn Hook T4, T3U, FTI LABCORPon 11-01 Free Thyroxine Index 2.4 Normal 1.2-4.9 [facility] Comment on above: Performed By: #### T HYLC #### [facility] [address] [address] [address] Carolynn Hook T3 Uptake 25 % Normal 24-39 [facility] Comment on above: Performed By: #### T HYLC #### [facility] [address] [place] [address] Dr. Carolynn Hook T4 [Mass/Vol] 9.5 ug/dL Normal 4.5-12.0 [facility] Comment on above: Performed By: #### T HYLC #### [facility] [address] [place] [address] Dr. Carolynn Hook CBC AUTO DIFFon 10-31-2021 BASO # 0.0 103/ul Normal 0.0-0.1 [facility] Comment on above: Performed By: #### C BC #### [facility] [address] [place] [address] Dr. Carolynn Hook Basophils/100 WBC (Bld) 0.5 % Normal 0.2-2.0 [facility] Comment on above: Performed By: #### C BC #### [facility] [address] [place] [address] Dr. Carolynn Hook EO # 0.1 103/ul Normal 0.0-0.7 [facility] Comment on above: Performed By: #### C BC #### [facility] [address] [place] [address] Dr. Carolynn Hook Eosinophils/100 WBC (Bld) 2.1 % Normal 0.9-7.0 [facility] Comment on above: Performed By: #### C BC #### [facility] [address] [place] [address] Dr. Carolynn Hook Erythrocyte distribution width (RBC) [Ratio] 12.8 % Normal 11.0-15.0 [facility] Comment on above: Performed By: #### C BC #### [facility] [address] [place] [address] Dr. Carolynn Hook Hematocrit (Bld) [Volume fraction] 49.3 % Critically high 36.0-48.0 [facility] Comment on above: Performed By: #### C BC #### [facility] [address] [place] [address] Dr. Carolynn Hook Hemoglobin (Bld) [Mass/Vol] 16.7 g/dL Critically high 12.0-16.0 [facility] Comment on above: Performed By: #### C BC #### [facility] [address] [place] [address] Dr. Carolynn Hook IG # 0.07 10e3/ul Critically high 0.00-0.03 [facility] Comment on above: Performed By: #### C BC #### [facility] [address] [place] [address] Dr. Carolynn Hook IG % 1.3 % Critically high 0.0-0.5 [facility] Comment on above: Performed By: #### C BC #### [facility] [address] [place] [address] Dr. Carolynn Hook LYMPH # 1.5 103/ul Normal 1.2-3.8 [facility] Comment on above: Performed By: #### C BC #### [facility] [address] [place] [address] Dr. Carolynn Hook Lymphocytes/100 WBC (Bld) 27.0 % Normal 20.5-60.0 [facility] Comment on above: Performed By: #### C BC #### [facility] [address] [place] [address] Dr. Carolynn Hook MANUAL DIFF REQ NO Normal [facility] Comment on above: Performed By: #### C BC #### [facility] [address] [place] [address] Dr. Carolynn Hook MCH (RBC) [Entitic mass] 31.9 pg Normal 26.7-34.0 [facility] Comment on above: Performed By: #### C BC #### [facility] [address] [place] [address] Dr. Carolynn Hook MCHC (RBC) [Mass/Vol] 33.9 g/dL Normal 29.9-35.2 [facility] Comment on above: Performed By: #### C BC #### [facility] [address] [place] [address] Dr. Carolynn Hook MCV (RBC) [Entitic vol] 94.1 fL Normal 81.0-99.0 [facility] Comment on above: Performed By: #### C BC #### [facility] [address] [place] [address] Dr. Carolynn Hook MONO # 0.5 103/ul Normal 0.3-0.8 [facility] Comment on above: Performed By: #### C BC #### [facility] [address] [place] [address] Dr. Carolynn Hook Monocytes/100 WBC (Bld) 8.2 % Normal 1.7-12.0 [facility] Comment on above: Performed By: #### C BC #### [facility] [address] [place] [address] Dr. Carolynn Hook NEUT # 3.4 103/ul Normal 1.4-6.5 [facility] Comment on above: Performed By: #### C BC #### [facility] [address] [place] [address] Dr. Carolynn Hook Neutrophils/100 WBC (Bld) 60.9 % Normal 43.0-75.0 [facility] Comment on above: Performed By: #### C BC #### [facility] [address] [place] [address] Dr. Carolynn Hook Platelet mean volume (Bld) [Entitic vol] 8.6 fL Critically low 9.5-13.5 [facility] Comment on above: Performed By: #### C BC #### [facility] [address] [place] [address] Dr. Carolynn Hook PLT 239 103/ul Normal 150-450 [facility] Comment on above: Performed By: #### C BC #### [facility] [address] [place] [address] Dr. Carolynn Hook RBC 5.24 106/ul Normal 4.20-5.40 [facility] Comment on above: Performed By: #### C BC #### [facility] [address] [place] [address] Dr. Carolynn Hook WBC 5.6 103/ul Normal 4.0-11.0 [facility] Comment on above: Performed By: #### C BC #### [facility] [address] [address] [address] Carolynn Hook GLYCOHEMOGLOBIN A1Con 2021 ADA RECOMMENDATION SEE BELOW Normal [facility] Comment on above: Result Comment: ADA RECOMMENDED LIMIT 4.0 - 6.0 ADA THERAPEUTIC TARGET < 7.0 ACTION SUGGESTED > 7.0 Performed By: #### A 1C #### [facility] [address] [address] [address] Carolynn Hook Glucose [Mass/Vol] 108 mg/dL Critically high 74-106 [facility] [place] [facility] Comment on above: Performed By: #### A 1C #### [facility] [address] [address] [address] Carolynn Hook Performed By: #### T SH, CMP, LIPID ####[facility] [address] [address]Dr. Carolynn Hook HbA1c (Bld) [Mass fraction] 5.4 % Normal 4.5-6.2 [facility] Comment on above: Performed By: #### A 1C #### [facility] [address] [address] [address] Carolynn Hook IRONon 10-31-2021 Iron [Mass/Vol] 93.0 ug/dL Normal 50.0-170.0 [facility] Comment on above: Performed By: #### I STEVEN #### [facility] [address] [address] [address] Carolynn Hook LIPID PROFILEon 10-31-2021 CHOL-HDL RATIO NORM SEE BELOW Normal [facility] [place] Comment on above: Result Comment: 3.3 - 4.4 LOW RISK 4.4 - 7.1 AVERAGE RISK 7.1 - 11.0 MODERATE RISK >11.0 HIGH RISK Performed By: #### T SH, CMP, LIPID ####[facility] [address] [address]Dr. Carolynn Hook Cholesterol [Mass/Vol] 314 mg/dL Critically high <=200 [facility] Comment on above: Performed By: #### T SH, CMP, LIPID ####[facility] [address] [id number]. Carolynn Hook Cholesterol in HDL [Mass/Vol] 65 mg/dL Critically high 40-60 [facility] Comment on above: Performed By: #### T MIKI, CMP, LIPID ####[facility] [address] [id number]. Carolynn Hook Cholesterol in LDL [Mass/Vol] 194.6 mg/dL Normal [facility] Comment on above: Performed By: #### T SH, CMP, LIPID ####[facility] [address] [id number]. Carolynn Hook Cholesterol.total/C holesterol in HDL [Mass ratio] 4.8 {ratio} Normal [facility] Comment on above: Performed By: #### T MIKI, CMP, LIPID ####[facility] [address] [id number]. Carolynn Hook HDL NORMAL > or = 60 mg/dl - LO W CARDIOVASCULAR RISK <40 mg/dl - HIGH CARDIOVASCULAR RISK Normal [facility] Comment on above: Performed By: #### T MIKI, CMP, LIPID ####[facility] [address] [id number]. Carolynn Hook LDL CALC NORMAL SEE BELOW Normal [facility] Comment on above: Result Comment: <100 mg/dl OPTIMAL 100 - 129 mg/dl NEAR OR ABOVE OPTIMAL 130 - 159 mg/dl BORDERLINE HIGH 160 - 189 mg/dl HIGH >190 mg/dl VERY HIGH Performed By: #### T MIKI, CMP, LIPID ####[facility] [address] [id number]. Carolynn Hook Triglyceride [Mass/Vol] 272 mg/dL Critically high <=150 [facility] Comment on above: Performed By: #### T MIKI, CMP, LIPID ####[facility] [address] [id number]. Carolynn Hook VLDL CALC 54.4 mg/dL Normal [facility] Comment on above: Performed By: #### T SH, CMP, LIPID ####[facility] [address] [id number]. Carolynn Hook PROF 14(COMP METB)on 022 Albumin [Mass/Vol] 3.9 g/dL Normal 3.4-5.0 [facility] Comment on above: Performed By: #### T MIKI, CMP, LIPID ####[facility] [address] [id number]. Carolynn Hook Albumin/Globulin [Mass ratio] 1.0 {ratio} Normal [facility] Comment on above: Performed By: #### T MIKI, CMP, LIPID ####[facility] [address] [address]Dr. Carolynn Hook ALP [Catalytic activity/Vol] 88 U/L Normal 46-116 [facility] Comment on above: Performed By: #### T MIKI, CMP, LIPID ####[facility] [address] [address]Dr. Carolynn Hook ALT [Catalytic activity/Vol] 23 U/L Normal 14-59 [facility] Comment on above: Performed By: #### T MIKI, CMP, LIPID ####[facility] [address] [address]Dr. Carolynn Hook Anion gap [Moles/Vol] 11.5 mmol/L Normal [facility] Comment on above: Performed By: #### T MIKI, CMP, LIPID ####[facility] [address] [address]Dr. Carolynn Hook AST [Catalytic activity/Vol] 14 U/L Critically low 15-37 [facility] Comment on above: Performed By: #### T MIKI, CMP, LIPID ####[facility] [address] [place] [id number]. Carolynn Hook Bilirubin [Mass/Vol] 0.6 mg/dL Normal 0.2-1.0 [facility] Comment on above: Performed By: #### T MIKI, CMP, LIPID ####[facility] [address] [address]Dr. Carolynn Hook Calcium [Mass/Vol] 9.7 mg/dL Normal 8.5-10.1 [facility] Comment on above: Performed By: #### T SH, CMP, LIPID ####[facility] [address] [place] [id number]. Carolynn Hook Chloride [Moles/Vol] 100 mmol/L Normal 98-107 [facility] Comment on above: Performed By: #### T SH, CMP, LIPID ####[facility] [address] [place] [id number]. Carolynn Hook CO2 [Moles/Vol] 29.9 mmol/L Normal 21.0-32.0 [facility] Comment on above: Performed By: #### T SH, CMP, LIPID ####[facility] [address] [address]Dr. Carolynn Hook Creatinine [Mass/Vol] 0.59 mg/dL Normal 0.55-1.02 [facility] Comment on above: Performed By: #### T SH, CMP, LIPID ####[facility] [address] [address]Dr. Carolynn Hook EGFR-AF POLISH >60 Normal >=60 [facility] Comment on above: Performed By: #### T SH, CMP, LIPID ####[facility] [address] [address]Dr. Carolynn Hook EGFR-NON AF POLISH >60 Normal >=60 [facility] Comment on above: Performed By: #### T SH, CMP, LIPID ####[facility] [address] [place] [id number]. Carolynn Hook Globulin (S) [Mass/Vol] 3.9 g/dL Normal [facility] Comment on above: Performed By: #### T SH, CMP, LIPID ####[facility] [address] [place] [id number]. Carolynn Hook Potassium [Moles/Vol] 4.4 mmol/L Normal 3.5-5.1 [facility] Comment on above: Performed By: #### T SH, CMP, LIPID ####[facility] [address] [place] [id number]. Carolynn Hook Protein [Mass/Vol] 7.8 g/dL Normal 6.4-8.2 [facility] Comment on above: Performed By: #### T SH, CMP, LIPID ####[facility] [address] [address]Dr. Carolynn Hook Sodium [Moles/Vol] 137 mmol/L Normal 136-145 [facility] Comment on above: Performed By: #### T SH, CMP, LIPID ####[facility] [address] [address]Dr. Carolynn Hook Urea nitrogen [Mass/Vol] 14.0 mg/dL Normal 7.0-18.0 [facility] Comment on above: Performed By: #### T SH, CMP, LIPID ####[facility] [address] [address]Dr. Carolynn Hook Urea nitrogen/Creatinine [Mass ratio] 23.7 mg/mg Normal [facility] Comment on above: Performed By: #### T SH, CMP, LIPID ####[facility] [address] [address]Dr. Carolynn Hook TSHon 10-31-2021 TSH 1.273 uIU/mL Normal 0.358-3.740 [facility] Comment on above: Performed By: #### T SH, CMP, LIPID ####[facility] [address] [place] [id number]. Carolynn Hook HEMOGLOBINon 10-06-2021 Hemoglobin (Bld) [Mass/Vol] 15.7 g/dL Normal 12.0-16.0 [facility] Comment on above: Performed By: #### H GB #### [facility] [address] [address] [address] LUNG CANCER SCREENINGon 0 07-25-2021 CT LUNG CANCER SCREENING EXAMINATION: CT LUNG CANCER SCREENING HISTORY: Nicotine dependence , shortness breath, chronic cough, COPD COMPARISON: 07/22/2020 CT LUNG CANCER SCREENING TECHNIQUE: Axial, Coronal, and Sagittal images were created without the administration of IV contrast material. Dose reduction techniques were achieved by using automated exposure control and/or adjustment of mA and/or kV according to patient size and/or use of iterative reconstruction technique. FINDINGS: LUNGS: 7 mm geographic shaped opacity within left posterior cardiac phrenic angle; new nodule versus infiltrate. A few tiny wispy opacities scattered within left lung which are new, nonspecific. Mild emphysematous changes. PLEURA: No mass, effusion, or pneumothorax. VASCULATURE: No abnormality. CARY: No mass or pathologic adenopathy. MEDIASTINUM: No mass or pathologic adenopathy. CARDIAC: No enlargement, pericardial thickening, or significant calcification. AORTA: Atherosclerotic coronary artery disease and bypass grafting. CHEST WALL: No mass or axillary adenopathy BONES: No bone lesion or fracture. LIMITED ABDOMEN: No suspicious findings. Limited images of the upper abdomen. OTHER: Negative. IMPRESSION: 1. LUNG SCREENING: Lung-RADS Category 3- Probably benign. Probably benign finding(s)- short term follow up suggested; includes nodules with a low likelihood of becoming a clinically active cancer. Six month LDCT. Electronically authenticated by: JACKIE NGUYEN Date: 2021-07-25 13:27 Normal [facility] XR hand RT min 3V*on 022 XR hand RT min 3V* [facility] [employer] Other XR hand RT min 3V* [facility] Main [facility] [employer] Other XR hand RT min 3V* [address] [place] [address] [employer] Other XR hand RT min 3V* [place] [address] [employer] Other XR hand RT min 3V* XRay Report [employer] Other XR hand RT min 3V* Signed [employer] Other XR hand RT min 3V* Patient: Carmen Kilgore V MR#: [id number] [employer] Other XR hand RT min 3V* [id number] [employer] Other XR hand RT min 3V* : 1965 Acct:[id number] [employer] Other XR hand RT min 3V* Age/Sex: 56 / F ADM Date: 07/13/21 [employer] Other XR hand RT min 3V* Loc: [facility] Room: Type: REG CLI [employer] Other XR hand RT min 3V* Attending Dr: Kacey MCCALL [employer] Other XR hand RT min 3V* Ordering Provider: CAL Richter [employer] Other XR hand RT min 3V* Date of Service: 07/13/21 [employer] Other XR hand RT min 3V* XR/XR hand RT min 3V*: Right hand pain [employer] Other XR hand RT min 3V* Copies to: CAL Richter [employer] Other XR hand RT min 3V* RIGHT HAND - 3 views [employer] Other XR hand RT min 3V* COMPARISON: None [employer] Other XR hand RT min 3V* REASON FOR EXAM: Right hand pain for one day. No known injury. [employer] Other XR hand RT min 3V* FINDINGS: [employer] Other XR hand RT min 3V* No focal soft tissue abnormality. No radiopaque foreign body. No acute bony process. Minimal [employer] Other XR hand RT min 3V* degenerative change. No bony erosions. [employer] Other XR hand RT min 3V* XR/XR hand RT min 3V* [employer] Other XR hand RT min 3V* IMPRESSION: [employer] Other XR hand RT min 3V* MINIMAL DEGENERATIVE CHANGE. NO ACUTE BONY PROCESS. [employer] Other XR hand RT min 3V* Impression dictated by: Sky Bush Jr., D.OJada07/13/2021 10:36 AM [employer] Other XR hand RT min 3V* Dictation Location: [address] [employer] Other XR hand RT min 3V* Transcribed By: PWS 07/13/21 1036 [employer] Other XR hand RT min 3V* Dictated By: Sky Bush Jr, DO 07/13/21 1034 [employer] Other XR hand RT min 3V* Signed By: [employer] Other XR hand RT min 3V* 07/13/[address] [place] [address] [employer] Other Vital Signs Date Time Vital Sign Value Performing Clinician Jeff henson 11-16-2023 12:45-0400 Diastolic blood pressure 78 mm[Hg] Adriel Kirnus [facility] 11-16-2023 12:45-0400 Heart rate 104 /min Adriel Kirnus [facility] 11-16-2023 12:45-0400 Respiratory rate 18 /min Adriel Kirnus [facility] 11-16-2023 12:45-0400 SaO2% (BldA) [Mass fraction] 96 % Adriel Kirnus [facility] 11-16-2023 12:45-0400 Systolic blood pressure 122 mm[Hg] Adriel Kirnus [facility] 05-28-2023 08:31-0400 Blood Pressure Location Jacky Thomson [facility] 05-28-2023 08:31-0400 Diastolic blood pressure 88 mm[Hg] Jacky Thomson [facility] 05-28-2023 08:31-0400 Heart rate 80 /min Jacky Thomson [facility] 05-28-2023 08:31-0400 SaO2% (BldA) [Mass fraction] 94 % Jacky Thomson [facility] 05-28-2023 08:31-0400 Systolic blood pressure 120 mm[Hg] Jacky Thomson [facility] 02-21-2023 12:10-0500 Body height 160.02 cm Kacey Stephanie Other [employer] Other 02-21-2023 12:10-0500 Body mass index (BMI) [Ratio] 23.56 kg/m2 Kacey Stephanie Other [employer] Other 02-21-2023 12:10-0500 Body temperature 98.2 [degF] Kacey Stephanie Other [employer] Other 02-21-2023 12:10-0500 Body weight 60.33 kg Kacey Stephanie Other [employer] Other 02-21-2023 12:10-0500 Diastolic blood pressure 81 mm[Hg] Kacey Stephanie Other [employer] Other 02-21-2023 12:10-0500 Respiratory rate 18 /min Kacey Stephanie Other [employer] Other 02-21-2023 12:10-0500 SaO2% (BldA) [Mass fraction] 94 % Kacey Stephanie Other [employer] Other 02-21-2023 12:10-0500 Systolic blood pressure 120 mm[Hg] Kacey Brown Other Loda [employer] Other 06-15-2022 12:50-0400 Blood Pressure Location Olga VAIL [facility] 06-15-2022 12:50-0400 Diastolic blood pressure 80 mm[Hg] Olga VAIL [facility] 06-15-2022 12:50-0400 Heart rate 93 /min Olgakaryn VAIL [facility] 06-15-2022 12:50-0400 SaO2% (BldA) [Mass fraction] 93 % Olgakaryn VAIL [facility] 06-15-2022 12:50-0400 Systolic blood pressure 136 mm[Hg] Olga VAIL [facility] 11-18-2021 13:55-0400 Diastolic blood pressure 83 mm[Hg] Jacky Christofferson [facility] 11-18-2021 13:55-0400 Mean blood pressure 98 mm[Hg] Jacky Christofferson [facility] 11-18-2021 13:55-0400 Systolic blood pressure 128 mm[Hg] Jacky Christofferson [facility] 11-18-2021 13:45-0400 Blood Pressure Location Jacky Christofferson [facility] 11-18-2021 13:45-0400 Diastolic blood pressure 110 mm[Hg] Jacky Christofferson [facility] 11-18-2021 13:45-0400 Heart rate 87 /min Jacky Christofferson [facility] 11-18-2021 13:45-0400 Respiratory rate 18 /min Jacky Christofferson [facility] 11-18-2021 13:45-0400 SaO2% (BldA) [Mass fraction] 100 % Jacky Thomson [facility] 11-18-2021 13:45-0400 Systolic blood pressure 153 mm[Hg] Jacky Thomson [facility] 07-13-2021 10:50-0400 Body height 160.02 cm Kacey Stephanie Other [employer] Other 07-13-2021 10:50-0400 Body mass index (BMI) [Ratio] 23.56 kg/m2 Kacey Stephanie Other [employer] Other 07-13-2021 10:50-0400 Body temperature 97.7 [degF] Kacey Stephanie Other [employer] Other 07-13-2021 10:50-0400 Body weight 60.33 kg Kacey Glezmond Other [employer] Other 07-13-2021 10:50-0400 Diastolic blood pressure 95 mm[Hg] Kacey Stephanie Other [employer] Other 07-13-2021 10:50-0400 Respiratory rate 18 /min Kacey Stephanie Other [employer] Other 07-13-2021 10:50-0400 SaO2% (BldA) [Mass fraction] 96 % Kacey Stephanie Other [employer] Other 07-13-2021 10:50-0400 Systolic blood pressure 150 mm[Hg] Kacey Brown Other [employer] Other Encounters Encounter Date Encounter Type Care Provider Facility Start: 11-16-2023 End: 11-16-2023 ambulatory XXXX NONE Facility:[facility] [place] Start: 11-16-2023 End: 11-16-2023 Patient encounter procedure Adriel Brantley [facility] Start: 05-28-2023 End: 05-28-2023 ambulatory XXXX NONE Facility:[facility] [place] Start: 05-28-2023 End: 05-28-2023 Patient encounter procedure Jacky Thomson [facility] Start: 02-21-2023 Office outpatient visit 15 minutes Kacey Brown [facility] Start: 02-21-2023 End: 02-21-2023 ambulatory MD Mckayla Givens Work Phone: [employer] Other Start: 02-21-2023 End: 02-21-2023 Departed Referred MD Mckayla Givens Work Phone: [facility] [place] Work Phone: Start: 06-13-2022 End: 06-15-2022 Patient encounter procedure Olga VAIL [facility] Start: 02-11-2022 Encounter for genera l adult medical examination without abnormal findings KACEY RIVERA [facility] Start: 02-09-2022 End: 02-10-2022 ambulatory KACEY RIVERA Facility:[facility] Start: 02-09-2022 End: 02-10-2022 Encounter for general adult medical examination without abnormal findings KACEY RIVERA Facility:[facility] Start: 01-16-2022 End: 01-17-2022 ambulatory KACEY RIVERA Facility:[facility] Start: 01-02-2022 End: 01-03-2022 ambulatory KACEY RIVERA Facility:[facility] Start: 11-18-2021 End: 11-18-2021 Patient encounter procedure Jacky Thomson [facility] Start: 10-31-2021 End: 11-01-2021 ambulatory KACEY RIVERA Facility:[facility] Start: 10-06-2021 End: 10-07-2021 ambulatory WING WRIGHT Facility:[facility] Start: 07-25-2021 End: 07-26-2021 ambulatory WING WRIGHT Facility:[facility] Start: 07-13-2021 End: 07-13-2021 ambulatory Kacey Brown Other [facility] [employer] Other Start: 07-13-2021 Office outpatient visit 15 minutes Kacey Brown [facility] Start: 04-07-2021 End: 05-04-[address] DOCTOR SERRANO Facility:[facility] Start: 04-01-2021 End: 04-02-[address] DOCTOR SERRANO Facility:[facility] Procedures Date Procedure Procedure Detail Performing Clinician Start: 04-05-2020 Catheterization of l eft heart Jacky Thomson Start: 07-30-2018 Percutaneous coronar y intervention Jacky Thomson Comment on above: Stents placed to Cir c and LAD Start: 03-12-1982 Ectopic (disorder) Jacky Thomson Plan of Treatment Date Care Activity Detail Author Start: 02-21-2023 Bacteria identified in Urine by Culture [facility] Payers Date Payer Category Payer Self-pay [id number] 2021 Medicare [id number] 2021 Private Health Insurance 1965 Unknown [id number] 2.16.84 [id number] 1965 Unknown [id number] .16.84 [id number] 1965 Unknown [id number] .16.84 [id number] 1965 Unknown [id number] 2.16.84 [id number] 1965 Unknown [id number] 2.16.84 [id number] 1965 Unknown [id number] 2.16.84 [id number] 1965 Unknown [id number] 2.16.84 [id number] 1965 Unknown [id number] 2.16.84 [id number] 1965 Unknown [id number] 2.16.8 [id number] 1965 Unknown [id number] 2.16.8 [id number] 1960 Medicare [id number] 2.1 [id number] 1960 Private Health Insurance [id number] Unknown [id number] 2.16.8 [id number] Social History Date Type Detail Facility Sex Assigned At [employer] [facility] [employer] Other Tobacco smoking status No Smokin g Status Entered [facility] Start: 06-15-2022 End: 11-16-2023 Tobacco smoking status Heavy tobacco smoker (finding) [facility] Start: 12-24-2019 Tobacco smoking stat us MIIS Smoker (finding) [facility] Start: 1965 Sex Assigned At Female F [facility] Tobacco smoking status Never [facility] Medical Equipment Procedure Code Equipment Code Equipment Origin al Text Equipment Identifier Dates Spinal fixation plate, non-bioabsorbable [id number] FDA Start: 12-22-2019 Spinal fixation plate, non-bioabsorbable ()[id number] FDA Start: 12-22-2019 Intervertebral-b donna internal spinal fixation system ()[id number] FDA Start: 12-22-2019 Intervertebral-b donna internal spinal fixation system ()[id number] FDA Start: 12-22-2019 Functional Status Date Assessment Result Facility 11-16-2023 Functional Status N/A [facility] 05-28-2023 Functional Status No [facility] 06-15-2022 Functional Status No [facility] 11-18-2021 Functional Status N/A [facility] Clinical Notes 05-17-2021 to 02-21-2023 Note Date & Type Note Facility 02-21-2023 Evaluation note Encounter Date Diagnosis Assessment Notes Feb, Dysuria (ICD-10 - R30.0) Feb, Acute cystitis with hematuria (ICD-10 - N30.01) Drink plenty fluids, get plenty of rest. Take the Macrobid and Pyridium as prescribed until gone. Urinary tract infection. Take Tylenol or Motrin as needed for aches pains or fevers. Follow-up with your family physician if no improvement in 2 to 3 days [employer] Other 04-06-2023 Hospital Discharge instructions Patient Education 06/15/2022 13:08:56 Tobacco Use Disorder Tobacco Use Disorder Tobacco use disorder (TUD) occurs when a person craves, seeks, and uses tobacco, regardless of the consequences. This disorder can cause problems with mental and physical health. It can affect your ability to have healthy relationships, and it can keep you from meeting your responsibilities at work, home, or school. Tobacco may be: Smoked as a cigarette or cigar. Inhaled using e-cigarettes. Smoked in a pipe or hookah. Chewed as smokeless tobacco. Inhaled into the nostrils as snuff. Tobacco products contain a dangerous chemical called nicotine, which is very addictive. Nicotine triggers hormones that make the body feel stimulated and works on areas of the brain that make you feel good. These effects can make it hard for people to quit nicotine. Tobacco contains many other unsafe chemicals that can damage almost every organ in the body. Smoking tobacco also puts others in danger due to fire risk and possible health problems caused by breathing in secondhand smoke. What are the signs or symptoms? Symptoms of TUD may include: Being unable to slow down or stop your tobacco use. Spending an abnormal amount of time getting or using tobacco. Craving tobacco. Cravings may last for up to 6 months after quitting. Tobacco use that: ?Interferes with your work, school, or home life. ?Interferes with your personal and social relationships. ?Makes you give up activities that you once enjoyed or found important. Using tobacco even though you know that it is: ?Dangerous or bad for your health or someone else's health. ?Causing problems in your life. Needing more and more of the substance to get the same effect (developing tolerance). Experiencing unpleasant symptoms if you do not use the substance (withdrawal). Withdrawal symptoms may include: ?Depressed, anxious, or irritable mood. ?Difficulty concentrating. ?Increased appetite. ?Restlessness or trouble sleeping. Using the substance to avoid withdrawal. How is this diagnosed? This condition may be diagnosed based on: Your current and past tobacco use. Your health care provider may ask questions about how your tobacco use affects your life. A physical exam. You may be diagnosed with TUD if you have at least two symptoms within a 12- month period. How is this treated? This condition is treated by stopping tobacco use. Many people are unable to quit on their own and need help. Treatment may include: Nicotine replacement therapy (NRT). NRT provides nicotine without the other harmful chemicals in tobacco. NRT gradually lowers the dosage of nicotine in the body and reduces withdrawal symptoms. NRT is available as: ?Ljlr-gfa-eigkutm gums, lozenges, and skin patches. ?Prescription mouth inhalers and nasal sprays. Medicine that acts on the brain to reduce cravings and withdrawal symptoms. A type of talk therapy that examines your triggers for tobacco use, how to avoid them, and how to cope with cravings (behavioral therapy). Hypnosis. This may help with withdrawal symptoms. Joining a support group for others coping with TUD. The best treatment for TUD is usually a combination of medicine, talk therapy, and support groups. Recovery can be a long process. Many people start using tobacco again after stopping (relapse). If you relapse, it does not mean that treatment will not work. Follow these instructions at home: Lifestyle Do not use any products that contain nicotine or tobacco, such as cigarettes and e-cigarettes. Avoid things that trigger tobacco use as much as you can. Triggers include people and situations that usually cause you to use tobacco. Avoid drinks that contain caffeine, including coffee. These may worsen some withdrawal symptoms. Find ways to manage stress. Wanting to smoke may cause stress, and stress can make you want to smoke. Relaxation techniques such as deep breathing, meditation, and yoga may help. Attend support groups as needed. These groups are an important part of long-term recovery for many people. General instructions Take zyyl-amk-hqotdhx and prescription medicines only as told by your health care provider. Check with your health care provider before taking any new prescription or pbqg-bfy-hrfxmqs medicines. Decide on a friend, family member, or smoking quit-line (such as 8-682-RUGR-NOW in the [place] that you can call or text when you feel the urge to smoke or when you need help coping with cravings. Keep all follow-up visits as told by your health care provider and therapist. This is important. Contact a health care provider if: You are not able to take your medicines as prescribed. Your symptoms get worse, even with treatment. Summary Tobacco use disorder (TUD) occurs when a person craves, seeks, and uses tobacco regardless of the consequences. This condition may be diagnosed based on your current and past tobacco use and a physical exam. Many people are unable to quit on their own and need help. Recovery can be a long process. The most effective treatment for TUD is usually a combination of medicine, talk therapy, and support groups. This information is not intended to replace advice given to you by your health care provider. Make sure you discuss any questions you have with your health care provider. Document Released: 11/01/2004 Document Revised: 02/13/2018 Document Reviewed: 02/13/2018 [employer] Patient Education 2020 [employer]. Follow Up Care 05/16/2022 16:17:12 With:Berto ANTHONY, Jacky Ashley Address: [address] [place] [address] [place] [address]- When:3 months [facility]05-04-2022 Evaluation note* Encounter Date Diagnosis Assessment Notes Treatment Notes Treatment Clinical Notes July, Right hand pain (ICD-10 - M79.641) July, Thumb tendonitis (ICD-10 - M77.8) Wear the splint is much as possible for comfort. Take the prednisone as prescribed until gone. Take Tylenol as needed for pain. Follow-up with your family physician if no improvement in 5 to 7 days. July, Other Tendonitis home care material was printed [employer] Other 03-08-2022 Hospital Discharge instructions Follow Up Care 05/17/2021 13:49:05 With:Jacky Thomson MD Address: When:6 months Comments:Call for sooner apt with new/worsening symptoms [facility]ments Appointment Date:05/16/2022 03:15:00 PM Scheduled Provider:Jacky Thomson MD Location:[facility] App[facility] Future Appointments Appointment Date:09/14/2022 01:30:00 PM Scheduled Provider:Olga VAIL CNP Location:[facility] Appointment Type[facility] assessment information available [facility] Work Phone: [facility] Narrative - Reported* Type Description Date Medical History hypertension Medical History hypercholesterolemia Medical History COPD Medical History emphysema Surgical History tubal ligation Surgical History tonsillectomy and adenoidectomy Surgical History cervical Hospitalization History See Above [facility] Other [facility] Narrative - Reported* Type Description Date Medical History hypertension Medical History hypercholesterolemia Medical History COPD Medical History emphysema Surgical History tubal ligation Surgical History tonsillectomy and adenoidectomy Surgical History cervical spine Hospitalization History See Above [facility] Other Hospital course Narrative No data available for this section [facility] No data available for this section [facility] No data available for this section [facility] Summary Purpose Family History No Family History Records Found Relationship Condition Age at Onset Recorded Date/T caden sister Macular degeneration Unknown sister Chronic obstructive pulmonary disease Unk nown Not Specified Malignant neoplasm of breast Unknown Malignant neoplasm of lung Unknown father History of coronary artery bypass surgery Unknown Advance Directives No Advanced Directives Records Found Advance Directive Response Recorded Date/ Time Advance Directives No August 29 10:44am Additional Source Comments REASON FOR VISIT (unrecogniz ed section and content) RIGHT HAND PAIN AND SWELLING BURNING WHEN URINATING//URINARY URGENCYBURNING WHEN URINATING//URINARY URGENCY Care Team (unrecognized sect ion and content) Team Status: Active Member Role Status Dates Mckayla Givens MD Primary Care Provider Active Team Status: Inactive Member Role Status Dates Mckayla Givens MD Primary Care Provider Active CAL Sprague Attending Provider Active INFORMATION SOURCE (unrecogn ized section and content) DATE CREATED AUTHOR 02/11/2022 [facility] DATE CREATED AUTHOR AUTHOR'S ORGANIZ ATION 04/20/2023 [facility] DATE CREATED AUTHOR AUTHOR'S ORGANIZ ATION 11/23/2023 [facility] Goals (unrecognized section and content) Goals may be documented in a n alternate section FOR RECORDS PERTAINING TO PATIENTS WHO ARE OR HAVE BEEN ENROLLED IN A CHEMICAL DEPENDENCY/SUBSTANCEABUSE PROGRAM, SOME INFORMATION MAY BE OMITTED. This clinical summary was aggregated from multiple sources. Caution should be exercised in using it in the provision of clinical care. This summary normalizes information from multiple sources, and as a consequence, information in this document may materially change the coding, format and clinical context of patient data. In addition, data may be omitted in some cases. CLINICAL DECISIONS SHOULD BE BASED ON THE PRIMARY CLINICAL RECORDS. [employer] [facility]. provides no warranty or guarantee of the accuracy or completeness of information in this document.
[2024-01-01 13:28] LABS: Estimated Average Glucose 94 mg/dL; Glycohemoglobin A1C 4.9 % (4.5-6.2)
[2024-01-01 13:40] LABS: Alanine Aminotransferase 20 U/L (14-59); Albumin Globulin Ratio 0.8; Albumin Level 3.2 g/dL (3.4-5.0); Alkaline Phosphatase 116 U/L (46-116); Anion Gap 12.2; Aspartate Amino Transferase 13 U/L (15-37); BUN Creatinine Ratio 20.9; Bilirubin Total 0.7 mg/dL (0.2-1.0); Calcium 9.5 mg/dL (8.5-10.1); Carbon Dioxide 29.4 mmol/L (21.0-32.0); Chloride 105 mmol/L (98-107); Chol HDL Ratio 3.3; Cholesterol 155 mg/dL (<=200); Estimated GFR (African America >60 (>=60 mL/min/1.73m^2); Estimated GFR (Non-African Ame >60 (>=60 mL/min/1.73m^2); Free T3 2.85 pg/mL (2.18-3.98); Globulin 4.2 g/dL; Glucose 111 mg/dL (74-106); HDL Cholesterol 47 mg/dL (40-60); Potassium 4.6 mmol/L (3.5-5.1); Sodium 142 mmol/L (136-145); Thyroid Stimulating Hormone 0.868 uIU/mL (0.358-3.740); Total Protein 7.4 g/dL (6.4-8.2); Triglycerides 166 mg/dL (<=150); VLDL CHOLESTEROL 33.2 mg/dL
[2024-01-01 14:02] LABS: Basophils Absolute Auto 0.1 10^3/uL (0.0-0.1); Basophils Percent Auto 0.6 % (0.2-2.0); Eosinophils Absolute Auto 0.1 10^3/uL (0.0-0.7); Eosinophils Percent Auto 1.8 % (0.9-7.0); Hematocrit 46.2 % (36.0-48.0); Hemoglobin 15.5 g/dL (12.0-16.0); Immature Granulocytes Abs Auto 0.08 10^3/uL (0.00-0.03); Lymphocytes Absolute Auto 1.9 10^3/uL (1.2-3.8); Lymphocytes Percent Auto 24.2 % (20.5-60.0); Mean Corpuscular HGB Conc 33.5 g/dL (29.9-35.2); Mean Corpuscular Hemoglobin 31.8 pg (26.7-34.0); Mean Corpuscular Volume 94.9 fL (81.0-99.0); Mean Platelet Volume 8.8 fL (9.5-13.5); Monocytes Absolute Auto 0.6 10^3/uL (0.3-0.8); Monocytes Percent Auto 7.5 % (1.7-12.0); Neutrophils Absolute Auto 5.2 10^3/uL (1.4-6.5); Neutrophils Percent Auto 64.9 % (43.0-75.0); Platelet Count 308 10^3/uL (150-450); Red Blood Count 4.87 10^6/uL (4.20-5.40); Red Cell Distribution Width 12.8 % (11.0-15.0)
[2024-01-02 08:14] LABS: Insulin 13.9 uIU/mL (2.6-24.9)
== END 2024-01-01 12:59 | disposition home or self-care (01) ==
LOC: LAB 12:58
PROVIDERS: PCP Nurse Practitioner Family; Visit Provider Nurse Practitioner Family
DX: E78.5 Hyperlipidemia, unspecified (principal); I10 Essential (primary) hypertension; J43.2 Centrilobular emphysema; E11.9 Type 2 diabetes mellitus without complications
CPT/HCPCS: 36415; 80053; 80061; 83036; 83525; 84436; 84443; 84481; 85025

== ENCOUNTER 2024-02-11 12:56 | Outpatient (OUT) | payer OTHER, MEDICARE, SELFPAY ==
--- NOTE | 2024-02-11 | CT_ITS ---
[address] [address] Patient Name: ANABEL KILGORE MRN: [id number] date: 1965 Sex: F Assigned Patient Location: CT Current Patient Location: CT Accession/Order Number: [id number] Exam Date: 02/11/2024 13:13 Report Date: 02/11/2024 13:55 At the request of: WING WRIGHT Procedure: CT lung screening low-dose EXAMINATION: CT lung screening low-dose HISTORY: Encounter for screening for malignant neoplasm of respirator COMPARISON: 02/08/2023 TECHNIQUE: Axial, Coronal, and Sagittal images were created without the administration of IV contrast material. Dose reduction techniques were achieved by using automated exposure control and/or adjustment of mA and/or kV according to patient size and/or use of iterative reconstruction technique. FINDINGS: LUNGS: Mild centrilobular emphysema with an upper lobe prominence. Scattered subcentimeter pulmonary nodules scattered throughout both lungs, grossly stable. There is been interval development of a new area of patchy consolidative infiltrate. The largest area measuring 2.6 x 1.0 cm along the left major fissure axial image #107 PLEURA: No mass, effusion, or pneumothorax. VASCULATURE: No abnormality. CARY: No mass or pathologic adenopathy. MEDIASTINUM: No mass or pathologic adenopathy. CARDIAC: No enlargement or pericardial effusion CORONARY ARTERIES: Patient has had previous coronary artery stenting.. AORTA: No aortic aneurysm. Moderate calcific atherosclerosis CHEST WALL: No mass or axillary adenopathy BONES: No bone lesion or fracture. LIMITED ABDOMEN: No suspicious findings. Limited images of the upper abdomen. OTHER: Negative. CT/CT lung screening low-dose IMPRESSION: New density along the left major fissure with the largest component measuring 2.6 x 1.0 cm. Consider PET scan to evaluate metabolic status LUNG SCREENING: Lung-RADS Category 4A- Suspicious. Findings for which additional diagnostic testing and/ or tissue sampling is recommended. 3 month LDCT; PET/CT may be used when there is a >= 8 mm solid component. Electronically authenticated by: AWAIS MEHTA Date: 02/11/2024 13:55
== END 2024-02-11 12:57 | disposition home or self-care (01) ==
LOC: CT 12:56
PROVIDERS: PCP Nurse Practitioner Family; Visit Provider Internal Medicine
DX: F17.219 Nicotine dependence, cigarettes, with unspecified nicotine-induced disorders (principal); Z12.2 Encounter for screening for malignant neoplasm of respiratory organs; R91.8 Other nonspecific abnormal finding of lung field
CPT/HCPCS: 71271

== ENCOUNTER 2024-05-19 12:55 | Outpatient (OUT) | payer OTHER, MEDICARE, SELFPAY ==
--- OUTSIDE RECORDS SUMMARY | 2024-05-19 13:00 | XMS_ITS | CCD ---
Author Organization [facility] Care Team Providers Care Glue Jointer Operator Name Role Phone Kacey Brown Unavailable KACEY RIVERA Primary Care Physician SAMSA, WING Consulting Unavailable SAMSA, WING Attending [...] Primary Care Provider CAL Brown Attending Provider [phone] Kacey Brown Attending Unavailable Kacey Brown Admitting Unavailable Mckayla Givens Primary Care Unavailable NONE, XXXX Referring Unavailable Adriel Brantley Attending Unavailable NONE, XXXX Referring Unavailable Jacky Thomson Admitting Unavaila ble Jacky Thomson Attending Unavaila ble Allergies Allergy Classification Reported Allergen(s) Allergy Type Date of Onset Reaction(s) Facility (8 sources) HYDROmorphone; Translations: [hydromorphone] Drug Allergy 0 Vomiting (disorder) [facility] (2 sources) HYDROmorphone; Translations: [Dilaudid] Drug Allergy 4 [facility] Repository (1 source) HYDROmorphone Drug Allergy 3 [facility] Repository Medications Current Medications Medication Drug Class(es) Dates Sig (Normalized) Sig (Original) [id number] 200 actuat albuterol 0.09 mg/actuat metered dose [...] Daily, # 30 tab(s), Refills(s) 6, Pharmacy: [facility]/pharmacy #[id number], 160, cm, 04/15/20 13:43:00 EST, Height/Length Dosing, [...] qAM, # 90 tab(s), Refills(s) 3, Pharmacy: [facility]/pharmacy #[id number], 160, cm, 05/28/23 13:19:00 EDT, Height/Length Dosing, 62.6, kg, 05/28/23 13:19:00 EDT, Weight Dosing Start Date: 09/10/23 Status: Ordered Start: 06-15-2022 take 1 tablet by james th once daily in the morning isosorbide mononitrate 30 mg ER Tab 30 mg = 1 tab(s), Oral, qAM, # 90 tab(s), Refills(s) 3, Pharmacy: [facility]/pharmacy #[id number], 160, cm, 06/15/22 12:54:00 EDT, Height/Length Dosing, 63.8, kg, 06/15/22 12:54:00 EDT, Weight Dosing Start Date: 06/15/22 Status: Ordered Start: 05-02-2021 take 1 tablet by james th once daily in the morning isosorbide mononitrate 30 mg ER Tab 30 mg = 1 tab(s), Oral, qAM, # 90 tab(s), Refills(s) 3, Pharmacy: [facility]/pharmacy #[id number], 160, cm, 04/15/20 13:43:00 EST, Height/Length Dosing, 59, kg, 04/15/20 13:43:00 EST, Weight Dosing Start Date: 05/02/21 Status: Ordered Isosorbide Cresco itrate Active lisinopril 20 mg oral tablet (8 sources) Angiotensin Converting Enzyme Inhibitor Start: 06-15-2022 take 1 tablet by mouth once daily lisinopril 20 mg Tab 20 mg = 1 tab(s), Oral, Daily, # 90 tab(s), Refills(s) 3, Pharmacy: [facility]/pharmacy #[id number], 160, cm, 06/15/22 12:54:00 EDT, Height/Length Dosing, 63.8, kg, 06/15/22 12:54:00 EDT, Weight Dosing Start Date: 06/15/22 Status: Ordered Start: 12-15-2019 take 1 tablet by james th once daily lisinopril 10 mg Tab 10 mg = 1 tab(s), Oral, Daily, # 90 tab(s), Refills(s) 1, Pharmacy: [facility]/pharmacy #[id number], 160, cm, 04/15/20 13:43:00 EST, [...] attention, # 25 tab(s), Refills(s) 1, Pharmacy: [facility]/pharmacy #[id number], 160, cm, 05/17/21 13:29:00 EST, Height/Length Dosing, 60, kg, 05/17/21 13:29:00 EST, Weight Dosing Start Date: 05/25/21 Status: Ordered Start: 05-25-2021 Nitro 0.4 mg T ab = 1 tab(s), SubLingual, q5min, PRN Chest pain, If chest pain not relieved in 5 minutes after first dose, seek immediate medical attention, # 25 tab(s), Refills(s) 1, Pharmacy: [facility]/pharmacy #[id number], 160, cm, 05/17/21 13:29:00 EST, [...] attention, # 25 tab(s), Refills(s) 1, Pharmacy: [facility]/pharmacy #[id number], 160, cm, 05/17/21 13:29:00 EST, [...] BID, # 180 tab(s), Refills(s) 3, Pharmacy: [facility]/pharmacy #[id number], 160, cm, 06/15/22 12:54:00 EDT, [...] day(s), # 90 tab(s), Refills(s) 3, Pharmacy: [facility]/pharmacy #[id number], 160, cm, 05/17/21 13:29:00 EST, [...] Coronary atherosclerosis; 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 Normal [facility] Comment on above: Result Comment: Elec tronically [...] with voice recognition artificial intelligence software, specifically [employer], [employer] and or Arigo. Substitutions may have occurred due to the inherent limitations of voice recognition and artificial intelligence software. ATTESTATION: Documentation services were performed after patient or guardian consented to allow [employer] to record this visit. BRETT quarrying specialist and provider reviewed before signing. BRETT: [...] Substance Abuse, (more content not included)... Normal [facility] Comment on above: Result Comment: Elec tronically Signed By: Berto ANTHONY, Jacky Ashley\.br\Date and Time Signed: 06/20/23 11:57 EDT\.br\Electronically Co-Signed By: Perla Emerson\.br\Date and Time Co-Signed: 05/28/23 14:17 EDT Consent for Treatmenton 05-10 Consent for Treatment [id number]#1 .00TIFF Normal [facility] Physician Orderon 05-28-2023 Physician Order [id number]# 1.00TIFF Normal [facility] Outside Recordson 02-21-2023 Outside Records [id number]# 1.00TIFF Normal [facility] Urinalysis - AUTOMATEDon Appearance (U) cloudy [employer] Other Bilirubin Ql (U) Negative [employer] Other Color (U) yellow [employer] Other Glucose Ql (U) Negative [employer] Other Hemoglobin Ql (U) [employer] Other Ketones Ql (U) Negative [employer] Other Leukocyte esterase Test strip Ql (U) [facility] Other Nitrite Ql (U) Negative [employer] Other pH (U) 6.5 [pH] [employer] Other Protein Ql (U) Negative [employer] Other Specific gravity (U) [Rel density] 1.025 [employer] Other Urobilinogen (U) [Mass/Vol] 0.2 mg/dL [employer] Other Urinalysis - AUTOMATED [facility] [employer] Other Urine Cultureon 02-21-2023 Bacteria identified Cx Nom (U) Reason for Exam Dysuria Urine Reason for Exam: Dysuria : Urine >100,000 colonies/ml mixed bacterial skin contaminants 2 Days PERFORMED BY: [facility] [address] [id number] PATHOLOGIST MEDICAL INSTRUMENT TECHNICIAN SRINIVAS BRAVO M.D. Normal [facility] Comment on above: Performed By: #### C UU #### [facility] [address], [place] [address] Bacteria identified Cx Nom (U) [facility] [employer] Other LIPID PROFILEon 02-09-2022 CHOL-HDL RATIO NORM SEE BELOW Normal [facility] Comment on above: Result Comment: 3.3 - 4.4 LOW RISK 4.4 - 7.1 AVERAGE RISK 7.1 - 11.0 MODERATE RISK >11.0 HIGH RISK Performed By: #### L IPID #### [facility] [address] [address] [address] Carolynn Hook Cholesterol [Mass/Vol] 149 mg/dL Normal <=200 [facility] Comment on above: Performed By: #### L IPID #### [facility] [address] [address] [address] Carolynn Hook Cholesterol in HDL [Mass/Vol] 50 mg/dL Normal 40-60 [facility] Comment on above: Performed By: #### L IPID #### [facility] [address] [address] [address] Carolynn Hook Cholesterol in LDL [Mass/Vol] 57.6 mg/dL Normal [facility] Comment on above: Performed By: #### L IPID #### [facility] [address] [address] [address] Carolynn Hook Cholesterol.total/C holesterol in HDL [Mass ratio] 3.0 {ratio} Normal [facility] Comment on above: Performed By: #### L IPID #### [facility] [address] [place], [place] [address] Dr. Carolynn Hook HDL NORMAL > or = 60 mg/dl - LO W CARDIOVASCULAR RISK <40 mg/dl - HIGH CARDIOVASCULAR RISK Normal [facility] Comment on above: Performed By: #### L IPID #### [facility] [address] [place], [place] [address] Dr. Carolynn Hook LDL CALC NORMAL SEE BELOW Normal [facility] Comment on above: Result Comment: <100 mg/dl OPTIMAL 100 - 129 mg/dl NEAR OR ABOVE OPTIMAL 130 - 159 mg/dl BORDERLINE HIGH 160 - 189 mg/dl HIGH >190 mg/dl VERY HIGH Performed By: #### L IPID #### [facility] [address] [address] [address] Carolynn Hook Triglyceride [Mass/Vol] 207 mg/dL Critically high <=150 [facility] Comment on above: Performed By: #### L IPID #### [facility] [address] [address] [address] Carolynn Hook VLDL CALC 41.4 mg/dL Normal [facility] Comment on above: Performed By: #### L IPID #### [facility] [address] [address] [address] CHEST WO CONon [...] left lower lobe nodule Electronically authenticated by: AWASI MEHTA Date: 2022-01-17 07:19 Normal [facility] MG MAMM SCREEN 3D SADA CADon 01-02-2022 MG MAMM SCREEN 3D SADA CAD Patient: CARMEN KILGORE V. Exam Date: 01/02/2022 : 1965 Gender:F Ordering : KACEY RIVERA [facility] Admission #: [id number] Family : Order #: [id number] CLICK HERE TO VIEW EXAM RADIOLOGY REPORT [...] lung cancer at age 44. LOCATION: [facility] BREAST COMPOSITION: Scattered areas fibroglandular density. FINDINGS: [...] MD on 01/02/2022 at 13:06 Normal [facility] INSULINon 11-01-2021 Insulin 12.8 uIU/mL Normal 2.6-24.9 [facility] Comment on above: Performed By: #### I NSULIN #### [facility] [address] [address] [address] Carolynn Hook T4, T3U, FTI LABCORPon 11-01 Free Thyroxine Index 2.4 Normal 1.2-4.9 [facility] Comment on above: Performed By: #### T HYLC #### [facility] [address] [address] [address] Carolynn Hook T3 Uptake 25 % Normal 24-39 [facility] Comment on above: Performed By: #### T HYLC #### [facility] [address] [place] [address] Dr. Carolynn Hook T4 [Mass/Vol] 9.5 ug/dL Normal 4.5-12.0 [facility] Comment on above: Performed By: #### T HYLC #### [facility] [address] [place] [address] Dr. Carolynn Hook CBC AUTO DIFFon 10-31-2021 BASO # 0.0 103/ul Normal 0.0-0.1 [facility] Comment on above: Performed By: #### C BC #### [facility] [address] [place] [address] Dr. Carolynn Hook Basophils/100 WBC (Bld) 0.5 % Normal 0.2-2.0 [facility] Comment on above: Performed By: #### C BC #### [facility] [address] [place] [address] Dr. Carolynn Hook EO # 0.1 103/ul Normal 0.0-0.7 [facility] Comment on above: Performed By: #### C BC #### [facility] [address] [place] [address] Dr. Carolynn Hook Eosinophils/100 WBC (Bld) 2.1 % Normal 0.9-7.0 [facility] Comment on above: Performed By: #### C BC #### [facility] [address] [place] [address] Dr. Carolynn Hook Erythrocyte distribution width (RBC) [Ratio] 12.8 % Normal 11.0-15.0 [facility] Comment on above: Performed By: #### C BC #### [facility] [address] [place] [address] Dr. Carolynn Hook Hematocrit (Bld) [Volume fraction] 49.3 % Critically high 36.0-48.0 [facility] Comment on above: Performed By: #### C BC #### [facility] [address] [place] [address] Dr. Carolynn Hook Hemoglobin (Bld) [Mass/Vol] 16.7 g/dL Critically high 12.0-16.0 [facility] Comment on above: Performed By: #### C BC #### [facility] [address] [place] [address] Dr. Carolynn Hook IG # 0.07 10e3/ul Critically high 0.00-0.03 [facility] Comment on above: Performed By: #### C BC #### [facility] [address] [place] [address] Dr. Carolynn Hook IG % 1.3 % Critically high 0.0-0.5 [facility] Comment on above: Performed By: #### C BC #### [facility] [address] [place] [address] Dr. Carolynn Hook LYMPH # 1.5 103/ul Normal 1.2-3.8 [facility] Comment on above: Performed By: #### C BC #### [facility] [address] [place] [address] Dr. Carolynn Hook Lymphocytes/100 WBC (Bld) 27.0 % Normal 20.5-60.0 [facility] Comment on above: Performed By: #### C BC #### [facility] [address] [place] [address] Dr. Carolynn Hook MANUAL DIFF REQ NO Normal [facility] Comment on above: Performed By: #### C BC #### [facility] [address] [place] [address] Dr. Carolynn Hook MCH (RBC) [Entitic mass] 31.9 pg Normal 26.7-34.0 [facility] Comment on above: Performed By: #### C BC #### [facility] [address] [place] [address] Dr. Carolynn Hook MCHC (RBC) [Mass/Vol] 33.9 g/dL Normal 29.9-35.2 [facility] Comment on above: Performed By: #### C BC #### [facility] [address] [place] [address] Dr. Carolynn Hook MCV (RBC) [Entitic vol] 94.1 fL Normal 81.0-99.0 [facility] Comment on above: Performed By: #### C BC #### [facility] [address] [place] [address] Dr. Carolynn Hook MONO # 0.5 103/ul Normal 0.3-0.8 [facility] Comment on above: Performed By: #### C BC #### [facility] [address] [place] [address] Dr. Carolynn Hook Monocytes/100 WBC (Bld) 8.2 % Normal 1.7-12.0 [facility] Comment on above: Performed By: #### C BC #### [facility] [address] [place] [address] Dr. Carolynn Hook NEUT # 3.4 103/ul Normal 1.4-6.5 [facility] Comment on above: Performed By: #### C BC #### [facility] [address] [place] [address] Dr. Carolynn Hook Neutrophils/100 WBC (Bld) 60.9 % Normal 43.0-75.0 [facility] Comment on above: Performed By: #### C BC #### [facility] [address] [place] [address] Dr. Carolynn Hook Platelet mean volume (Bld) [Entitic vol] 8.6 fL Critically low 9.5-13.5 [facility] Comment on above: Performed By: #### C BC #### [facility] [address] [place] [address] Dr. Carolynn Hook PLT 239 103/ul Normal 150-450 [facility] Comment on above: Performed By: #### C BC #### [facility] [address] [place] [address] Dr. Carolynn Hook RBC 5.24 106/ul Normal 4.20-5.40 [facility] Comment on above: Performed By: #### C BC #### [facility] [address] [place] [address] Dr. Carolynn Hook WBC 5.6 103/ul Normal 4.0-11.0 [facility] Comment on above: Performed By: #### C BC #### [facility] [address] [address] [address] Carolynn Hook GLYCOHEMOGLOBIN A1Con 2021 ADA RECOMMENDATION SEE BELOW Normal [facility] [place] Comment on above: Result Comment: ADA RECOMMENDED LIMIT 4.0 - 6.0 ADA THERAPEUTIC TARGET < 7.0 ACTION SUGGESTED > 7.0 Performed By: #### A 1C #### [facility] [address] [address] [address] Carolynn Hook Glucose [Mass/Vol] 108 mg/dL Critically high 74-106 [facility] Comment on above: Performed By: #### A 1C #### [facility] [address] [address] [address] Carolynn Hook Performed By: #### T SH, CMP, LIPID ####[facility] [address] [address]Dr. Carolynn Hook HbA1c (Bld) [Mass fraction] 5.4 % Normal 4.5-6.2 [facility] Comment on above: Performed By: #### A 1C #### [facility] [address] [address] [address] Carolynn Hook IRONon 10-31-2021 Iron [Mass/Vol] 93.0 ug/dL Normal 50.0-170.0 [facility] Comment on above: Performed By: #### I STEVEN #### [facility] [address] [address] [address] Carolynn Hook LIPID PROFILEon 10-31-2021 CHOL-HDL RATIO NORM SEE BELOW Normal [facility] Comment on above: Result Comment: 3.3 - 4.4 LOW RISK 4.4 - 7.1 AVERAGE RISK 7.1 - 11.0 MODERATE RISK >11.0 HIGH RISK Performed By: #### T SH, CMP, LIPID ####[facility] [address] [address]Dr. Carolynn Hook Cholesterol [Mass/Vol] 314 mg/dL Critically high <=200 [facility] Comment on above: Performed By: #### T SH, CMP, LIPID ####[facility] [address] [id number]. Carolynn Hook Cholesterol in HDL [Mass/Vol] 65 mg/dL Critically high 40-60 [facility] Comment on above: Performed By: #### T MIKI, CMP, LIPID ####[facility] [address] [id number]. Carolynn Hook Cholesterol in LDL [Mass/Vol] 194.6 mg/dL Normal [facility] Comment on above: Performed By: #### T SH, CMP, LIPID ####[facility] [address] [phone]. Carolynn Hook Cholesterol.total/C holesterol in HDL [Mass ratio] 4.8 {ratio} Normal [facility] Comment on above: Performed By: #### T MIKI, CMP, LIPID ####[facility] [address] [id number]. Carolynn Hook HDL NORMAL > or = 60 mg/dl - LO W CARDIOVASCULAR RISK <40 mg/dl - HIGH CARDIOVASCULAR RISK Normal [facility] Comment on above: Performed By: #### T MIKI, CMP, LIPID ####[facility] [address] [id number]. Carolynn Hook LDL CALC NORMAL SEE BELOW Normal [facility] Comment on above: Result Comment: <100 mg/dl OPTIMAL 100 - 129 mg/dl NEAR OR ABOVE OPTIMAL 130 - 159 mg/dl BORDERLINE HIGH 160 - 189 mg/dl HIGH >190 mg/dl VERY HIGH Performed By: #### T MIKI, CMP, LIPID ####[facility] [address] [id number]. Carolynn Hook Triglyceride [Mass/Vol] 272 mg/dL Critically high <=150 [facility] Comment on above: Performed By: #### T MIKI, CMP, LIPID ####[facility] [address] [id number]. Carolynn Hook VLDL CALC 54.4 mg/dL Normal [facility] Comment on above: Performed By: #### T SH, CMP, LIPID ####[facility] [address] [id number]. Carolynn Hook PROF 14(COMP METB)on 022 Albumin [Mass/Vol] 3.9 g/dL Normal 3.4-5.[address] [facility] Comment on above: Performed By: #### T MIKI, CMP, LIPID ####[facility] [address] [id number]. Carolynn Hook Albumin/Globulin [Mass ratio] 1.0 {ratio} Normal [facility] Comment on above: Performed By: #### T MIKI, CMP, LIPID ####[facility] [address] [address]Dr. Carolynn Hook ALP [Catalytic activity/Vol] 88 U/L Normal 46-116 [facility] Comment on above: Performed By: #### T MIKI, CMP, LIPID ####[facility] [address] [address]Dr. Carolynn Hook ALT [Catalytic activity/Vol] 23 U/L Normal 14-59 [facility] Comment on above: Performed By: #### T MIKI, CMP, LIPID ####[facility] [address] [address]Dr. Carolynn Hook Anion gap [Moles/Vol] 11.5 mmol/L Normal [facility] Comment on above: Performed By: #### T MIKI, CMP, LIPID ####[facility] [address] [address]Dr. Carolynn Hook AST [Catalytic activity/Vol] 14 U/L Critically low 15-37 [facility] Comment on above: Performed By: #### T MIKI, CMP, LIPID ####[facility] [address] [id number]. Carolynn Hook Bilirubin [Mass/Vol] 0.6 mg/dL Normal 0.2-1.0 [facility] Comment on above: Performed By: #### T MIKI, CMP, LIPID ####[facility] [address] [address]Dr. Carolynn Hook Calcium [Mass/Vol] 9.7 mg/dL Normal 8.5-10.[address] [facility] Comment on above: Performed By: #### T SH, CMP, LIPID ####[facility] [address] [id number]. Carolynn Hook Chloride [Moles/Vol] 100 mmol/L Normal 98-107 [facility] Comment on above: Performed By: #### T SH, CMP, LIPID ####[facility] [address] [phone]. Carolynn Hook CO2 [Moles/Vol] 29.9 mmol/L Normal 21.0-32.0 [facility] Comment on above: Performed By: #### T SH, CMP, LIPID ####[facility] [address] [address]Dr. Carolynn Hook Creatinine [Mass/Vol] 0.59 mg/dL Normal 0.55-1.02 [facility] Comment on above: Performed By: #### T SH, CMP, LIPID ####[facility] [address] [address]Dr. Carolynn Hook EGFR-AF AZERBAIJANI >60 Normal >=60 [facility] Comment on above: Performed By: #### T SH, CMP, LIPID ####[facility] [address] [address]Dr. Carolynn Hook EGFR-NON AF AZERBAIJANI >60 Normal >=60 [facility] Comment on above: Performed By: #### T SH, CMP, LIPID ####[facility] [address] [phone]. Carolynn Hook Globulin (S) [Mass/Vol] 3.9 g/dL Normal [facility] Comment on above: Performed By: #### T SH, CMP, LIPID ####[facility] [address] [phone]. Carolynn Hook Potassium [Moles/Vol] 4.4 mmol/L Normal 3.5-5.1 [facility] Comment on above: Performed By: #### T SH, CMP, LIPID ####[facility] [address] [phone]. Carolynn Hook Protein [Mass/Vol] 7.8 g/dL Normal 6.4-8.2 [facility] Comment on above: Performed By: #### T SH, CMP, LIPID ####[facility] [address] [address]Dr. Carolynn Hook Sodium [Moles/Vol] 137 mmol/L Normal 136-145 [facility] [place] Comment on above: Performed By: #### T SH, CMP, LIPID ####[facility] [address] [address]Dr. Carolynn Hook Urea nitrogen [Mass/Vol] 14.0 mg/dL Normal 7.0-18.0 [facility] Comment on above: Performed By: #### T SH, CMP, LIPID ####[facility] [address] [address]Dr. Carolynn Hook Urea nitrogen/Creatinine [Mass ratio] 23.7 mg/mg Normal [facility] Comment on above: Performed By: #### T SH, CMP, LIPID ####[facility] [address] [address]Dr. Carolynn Hook TSHon 10-31-2021 TSH 1.273 uIU/mL Normal 0.358-3.740 [facility] Comment on above: Performed By: #### T SH, CMP, LIPID ####[facility] [address] [phone]. Carolynn Hook HEMOGLOBINon 10-06-2021 Hemoglobin (Bld) [Mass/Vol] 15.7 g/dL Normal 12.0-16.0 [facility] Comment on above: Performed By: #### H GB #### [facility] [address] [address] [address] LUNG CANCER SCREENINGon [...] by: JACKIE NGUYEN Date: 2021-07-25 13:27 Normal [facility] XR hand RT min 3V*on 022 XR hand RT min 3V* [facility] [employer] Other XR hand RT min 3V* [facility] [employer] Other XR hand RT min 3V* [address] [place] [address] [employer] Other XR hand RT min 3V* [place] [address] [employer] Other XR hand RT min 3V* XRay Report [employer] Other XR hand RT min 3V* Signed [employer] Other XR hand RT min 3V* Patient: Carmen Kilgore V MR#: [id number] [employer] Other XR hand RT min 3V* [id number] [employer] Other XR hand RT min 3V* : 1965 Acct:[id number] [employer] Other XR hand RT min 3V* Age/Sex: 56 / F ADM Date: 07/13/21 [employer] Other XR hand RT min 3V* Loc: XDUCLY Room: Type: REG CLI [employer] Other XR hand RT min 3V* Attending Dr: Kacey MCCALL [employer] Other XR hand RT min 3V* Ordering Provider: CAL Richter [employer] Other XR hand RT min 3V* Date of Service: 07/13/21 [employer] Other XR hand RT min 3V* XR/XR hand RT min 3V*: Right hand pain [employer] Other XR hand RT min 3V* Copies to: CAL Richter [employer] Other XR hand RT min 3V* RIGHT HAND - 3 views [employer] Other XR hand RT min 3V* COMPARISON: None [employer] Other XR hand RT min 3V* REASON FOR EXAM: Right hand pain for one day. No known injury. [employer] Other XR hand RT min 3V* FINDINGS: [employer] Other XR hand RT min 3V* No focal soft tissue abnormality. No radiopaque foreign body. No acute bony process. Minimal [employer] Other XR hand RT min 3V* degenerative change. No bony erosions. [employer] Other XR hand RT min 3V* XR/XR hand RT min 3V* [employer] Other XR hand RT min 3V* IMPRESSION: [employer] Other XR hand RT min 3V* MINIMAL DEGENERATIVE CHANGE. NO ACUTE BONY PROCESS. [facility] Other XR hand RT min 3V* Impression dictated by: Sky Bush Jr., D.OJada07/13/2021 10:36 AM [facility] Other XR hand RT min 3V* Dictation Location: [address] [employer] Other XR hand RT min 3V* Transcribed By: PWS 07/13/21 1036 [employer] Other XR hand RT min 3V* Dictated By: Sky Bush Jr, DO 07/13/21 1034 [employer] Other XR hand RT min 3V* Signed By: [employer] Other XR hand RT min 3V* 07/13/[address] [place] [address] [employer] Other Vital Signs Date Time Vital Sign Value Performing Clinician Jeff henson 11-16-2023 12:45-0400 Diastolic blood pressure 78 mm[Hg] Adriel Kirnus [facility] 11-16-2023 12:45-0400 Heart rate 104 /min Adriel Kirnus [facility] 11-16-2023 12:45-0400 Respiratory rate 18 /min Adriel Kirnus [facility] 11-16-2023 12:45-0400 SaO2% (BldA) [Mass fraction] 96 % Adriel Kirnus [facility] 11-16-2023 12:45-0400 Systolic blood pressure 122 mm[Hg] Adriel Kirnus [facility] 05-28-2023 08:31-0400 Blood Pressure Location Jacky Thomson [facility] 05-28-2023 08:31-0400 Diastolic blood pressure 88 mm[Hg] Jacky Thomson [facility] 05-28-2023 08:31-0400 Heart rate 80 /min Jacky Thomson [facility] 05-28-2023 08:31-0400 SaO2% (BldA) [Mass fraction] 94 % Jacky Thomson [facility] 05-28-2023 08:31-0400 Systolic blood pressure 120 mm[Hg] Jacky Thomson [facility] 02-21-2023 12:10-0500 Body height 160.02 cm Kacey Stephanie Other [employer] Other 02-21-2023 12:10-0500 Body mass index (BMI) [Ratio] 23.56 kg/m2 Kacey Stephanie Other [employer] Other 02-21-2023 12:10-0500 Body temperature 98.2 [degF] Kacey Stephanie Other [employer] Other 02-21-2023 12:10-0500 Body weight 60.33 kg Kacey Stephanie Other [employer] Other 02-21-2023 12:10-0500 Diastolic blood pressure 81 mm[Hg] Kacey Stephanie Other [employer] Other 02-21-2023 12:10-0500 Respiratory rate 18 /min Kacey Stephanie Other [employer] Other 02-21-2023 12:10-0500 SaO2% (BldA) [Mass fraction] 94 % Kacey Stephanie Other [employer] Other 02-21-2023 12:10-0500 Systolic blood pressure 120 mm[Hg] Kacey Brown Other [place] [employer] Other 06-15-2022 12:50-0400 Blood Pressure Location Olga VAIL [facility] 06-15-2022 12:50-0400 Diastolic blood pressure 80 mm[Hg] Olga VAIL [facility] 06-15-2022 12:50-0400 Heart rate 93 /min Olgakaryn VAIL [facility] 06-15-2022 12:50-0400 SaO2% (BldA) [Mass fraction] 93 % Olgakaryn VAIL [facility] 06-15-2022 12:50-0400 Systolic blood pressure 136 mm[Hg] Olga VAIL [facility] 11-18-2021 13:55-0400 Diastolic blood pressure 83 mm[Hg] Jacky Christofferson [facility] 11-18-2021 13:55-0400 Mean blood pressure 98 mm[Hg] Jcaky Christofferson [facility] 11-18-2021 13:55-0400 Systolic blood pressure 128 mm[Hg] Jacky Christofferson [facility] 11-18-2021 13:45-0400 Blood Pressure Location Jacky Christofferson [facility] 11-18-2021 13:45-0400 Diastolic blood pressure 110 mm[Hg] Jacky Christofferson [facility] 11-18-2021 13:45-0400 Heart rate 87 /min Jacky Christofferson [facility] 11-18-2021 13:45-0400 Respiratory rate 18 /min Jacky Christofferson [facility] 11-18-2021 13:45-0400 SaO2% (BldA) [Mass fraction] 100 % Jacky Thomson [facility] 11-18-2021 13:45-0400 Systolic blood pressure 153 mm[Hg] Jacky Thomson [facility] 07-13-2021 10:50-0400 Body height 160.02 cm Kacey Stephanie Other [employer] Other 07-13-2021 10:50-0400 Body mass index (BMI) [Ratio] 23.56 kg/m2 Kacey Stephanie Other [facility] Other 07-13-2021 10:50-0400 Body temperature 97.7 [degF] Kacey Stephanie Other [employer] Other 07-13-2021 10:50-0400 Body weight 60.33 kg Kacey Glezmond Other [facility] Other 07-13-2021 10:50-0400 Diastolic blood pressure 95 mm[Hg] Kacey Stephanie Other [employer] Other 07-13-2021 10:50-0400 Respiratory rate 18 /min Kacey Stephanie Other [employer] Other 07-13-2021 10:50-0400 SaO2% (BldA) [Mass fraction] 96 % Kacey Stephanie Other [employer] Other 07-13-2021 10:50-0400 Systolic blood pressure 150 mm[Hg] Kacey Brown Other [employer] Other Encounters Encounter Date Encounter Type Care Provider Facility Start: 11-16-2023 End: 11-16-2023 [place]ulatory [place] [place]: 11-16-2023 End: 11-16-2023 Patient encounter procedure Adriel Brantley [facility] Start: 05-28-2023 End: 05-28-2023 ambulatory XXXX NONE [place] [place]: 05-28-2023 End: 05-28-2023 Patient encounter procedure Jacky Thomson [facility] Start: 02-21-2023 Office outpatient visit 15 minutes Kacey Brown [facility] Start: 02-21-2023 End: 02-21-2023 ambulatory MD Mckayla Givens Work Phone: [employer] Other Start: 02-21-2023 End: 02-21-2023 Departed Referred MD Mckayla Givens Work Phone: [facility] [place] Work Phone: Start: 06-13-2022 End: 06-15-2022 Patient encounter procedure Olga VAIL [facility] Start: 02-11-2022 Encounter for genera l adult medical examination without abnormal findings KACEY RIVERA [facility] Start: 02-09-2022 End: 02-10-2022 ambulatory KACEY RIVERA Facility:[facility] Start: 02-09-2022 End: 02-10-2022 Encounter for general adult medical examination without abnormal findings KACEY RIVERA Facility:[facility] Start: 01-16-2022 End: 01-17-2022 ambulatory KACEY RIVERA Facility:[facility] Start: 01-02-2022 End: 01-03-2022 ambulatory KACEY RIVERA Facility:[facility] Start: 11-18-2021 End: 11-18-2021 Patient encounter procedure Jacky Thomson [facility] Start: 10-31-2021 End: 11-01-2021 ambulatory KACEY RIVERA Facility:[facility] Start: 10-06-2021 End: 10-07-2021 ambulatory WING WRIGHT Facility:[facility] Start: 07-25-2021 End: 07-26-2021 ambulatory WING WRIGHT Facility:[facility] Start: 07-13-2021 End: 07-13-2021 ambulatory Kacey Brown Other [place] [employer] Other Start: 07-13-2021 Office outpatient visit 15 minutes Kacey Brown [facility] Start: 04-07-2021 [...] 02-21-2023 Bacteria identified in Urine by Culture [facility] Payers Date Payer Category Payer Self-pay [id number] 2021 Medicare [id number] 2021 Private Health Insurance 1965 Unknown [id number] 2.16.84 [id number] 1965 Unknown [id number] .16.84 [id number] 1965 Unknown [id number] .16.84 [id number] 1965 Unknown [id number] 2.16.84 [id number] 1965 Unknown [id number] 2.16.84 [id number] 1965 Unknown [id number] 2.16.84 [id number] 1965 Unknown [id number] 2.16.84 [id number] 1965 Unknown [id number] 2.16.84 [id number] 1965 Unknown [id number] 2.16.8 [id number] 1965 Unknown [id number] 2.16.8 [id number] 1960 Medicare [id number] 2.1 [id number] 1960 Private Health Insurance [id number] Unknown [id number] 2.16.8 [id number] Social History Date Type Detail Facility Sex Assigned At [facility] [employer] Other Tobacco smoking status No Smokin g Status Entered [facility] Start: 06-15-2022 End: 11-16-2023 Tobacco smoking status Heavy tobacco smoker (finding) [facility] Start: 12-24-2019 Tobacco smoking stat us RIIS Smoker (finding) [facility] Start: 1965 Sex Assigned At Female F [facility] Tobacco smoking status Never [facility] Medical Equipment Procedure Code Equipment Code Equipment Origin al Text Equipment Identifier Dates Spinal fixation plate, non-bioabsorbable ()[id number] FDA Start: 12-22-2019 Spinal fixation plate, non-bioabsorbable ()[id number] FDA Start: 12-22-2019 Intervertebral-b donna internal spinal fixation system ()[id number] FDA Start: 12-22-2019 Intervertebral-b donna internal spinal fixation system ()[id number] FDA Start: 12-22-2019 Functional Status Date Assessment Result Facility 11-16-2023 Functional Status N/A [facility] 05-28-2023 Functional Status No [facility] 06-15-2022 Functional Status No [facility] 11-18-2021 Functional Status N/A [facility] Clinical Notes 05-17-2021 to 02-21-2023 Note [...] no improvement in 2 to 3 days [facility] Other 04-06-2023 Hospital Discharge instructions Patient Education [...] reduces withdrawal symptoms. NRT is available as: ?Sehl-kyz-gjqltje gums, lozenges, and skin patches. ?Prescription mouth [...] recovery for many people. General instructions Take ywez-isk-phllosx and prescription medicines only as told by your health care provider. Check with your health care provider before taking any new prescription or joji-shh-rmgwjsj medicines. Decide on a friend, family member, or smoking quit-line (such as 6-493-DLGE-NOW in the [place] that you can call [...] 11/01/2004 Document Revised: 02/13/2018 Document Reviewed: 02/13/2018 [employer] Patient Education 2020 [employer]. Follow Up Care 05/16/2022 16:17:12 With:Berto ANTHONY, Jacky Ashley Address: [address] [place] [address] [place] [address]- When:3 months [facility]05-04-2022 Evaluation note* Encounter Date Diagnosis Assessment Notes [...] Other Tendonitis home care material was printed [facility] Other 03-08-2022 Hospital Discharge instructions Follow Up Care 05/17/2021 13:49:05 With:Jacky Thomson MD Address: When:6 months Comments:Call for sooner apt with new/worsening symptoms [facility]ments Appointment Date:05/16/2022 03:15:00 PM Scheduled Provider:Jacky Thomson MD Location:[facility] Future Appointments Appointment Date:09/14/2022 01:30:00 PM Scheduled Provider:Olga VAIL CNP Location:[facility] Appointment [facility] assessment information available [facility] Work Phone: [facility] general Narrative - Reported* Type Description Date Medical History hypertension Medical History hypercholesterolemia Medical History COPD Medical History emphysema Surgical History tubal ligation Surgical History tonsillectomy and adenoidectomy Surgical History cervical Hospitalization History See Above [facility] Other Histnbn general Narrative - Reported* Type Description Date Medical History hypertension Medical History hypercholesterolemia Medical History COPD Medical History emphysema Surgical History tubal ligation Surgical History tonsillectomy and adenoidectomy Surgical History cervical spine Hospitalization History See Above [facility] Other Hospital course Narrative No data available for this section [facility] No data available for this section [facility] No data available for this section [facility] Summary Purpose Family History No Family History [...] and content) DATE CREATED AUTHOR 02/11/2022 [facility] DATE CREATED AUTHOR AUTHOR'S ORGANIZ ATION 04/20/2023 [facility] DATE CREATED AUTHOR AUTHOR'S ORGANIZ ATION 11/23/2023 [facility] Goals (unrecognized section and content) Goals may [...] BE BASED ON THE PRIMARY CLINICAL RECORDS. authorGEN [facility]. provides no warranty or guarantee of the accuracy or completeness of information in this document.
--- NOTE | 2024-05-19 13:10 | CT_ITS ---
The [address] [address] Patient Name: ANABEL KILGORE MRN: [id number] date: 1965 Sex: F Assigned Patient Location: CT Current Patient Location: CT Accession/Order Number: [id number] Exam Date: 05/19/2024 14:13 Report Date: 05/19/2024 14:32 At the request of: WING WRIGHT DO Procedure: CT chest wo con CT CHEST WITHOUT CONTRAST CLINICAL DATA: 3 month follow-up of left lung abnormality. COMPARISON: 02/11/2024 Spiral images were obtained through the chest without contrast. Images were reviewed using both narrow and wide window settings. This CT exam was performed using one or more following dose reduction techniques: Automated exposure control, adjustment of the mA and/or kV according to patient size, or use of iterative reconstruction technique. The heart is within normal limits for size. No pericardial effusion is present. There is coronary artery disease. No aortic aneurysm is noted. There is mild plaque at the aortic arch and proximal great vessels. There are similar small mediastinal lymph nodes. There is a tiny hiatal hernia. Endplate spurring is present at the spine. There is prior lower cervical fusion. There is obstructive lung disease with airspace lucencies. There is developing consolidation at the left lower lobe. There appears to be obstruction of the bronchus at that site. No other consolidation, pleural effusion or pneumothorax is identified. Similar tiny bilateral pulmonary nodules are again seen, greatest at the right upper lobe. Limited cuts through the upper abdomen show right hepatic calcifications. CT/CT chest wo con IMPRESSION: OBSTRUCTIVE LUNG DISEASE. DEVELOPING LEFT LOWER LOBE CONSOLIDATION WITH SUSPECTED BRONCHIAL OBSTRUCTION.. SIMILAR TINY PULMONARY NODULES. Impression dictated by: Adelaide Arroyo M.D.05/19/2024 2:32 PM Dictation Location: [place] [address] Electronically authenticated by: [id number] Y Date: 05/19/2024 14:32
== END 2024-05-19 12:56 | disposition home or self-care (01) ==
LOC: CT 12:55
PROVIDERS: PCP Nurse Practitioner Family; Visit Provider Internal Medicine
DX: R91.8 Other nonspecific abnormal finding of lung field (principal)
CPT/HCPCS: 71250

== ENCOUNTER 2024-05-26 14:24 | Outpatient (OUT) | payer OTHER, MEDICARE, SELFPAY ==
--- NOTE | 2024-05-26 14:27 | ECG_ITS ---
The [facility] Test Date: 2024-05-26 Pat Name: ANABEL KILGORE Department: Room: - Gender: Female Compliance Nurse: : 1965 Requested By: Antione Munguia Order Number: [id number] Reading MD: RIK DUONG M.D. Measurements Intervals [place] Rate: 60 P: 75 [place]: 175 QRS: 41 QRSD: 90 T: 52 QT: 380 QTc: 380 Interpretive Statements SINUS RHYTHM VOLTAGE CRITERIA FOR LVH [MEETS CRITERIA IN ONE OF: R(aVL), S(V1), R(V5), R(V5/V6)+S(V1)] Cannot rule out inferior myoardial infarction, likely old Abnormal ECG Compared to ECG 01/10/2021 15:59:52 Left ventricular hypertrophy now present Electronically Signed On 05-26-2024 17:40:40 EDT by RIK DUONG M.D.
--- OUTSIDE RECORDS SUMMARY | 2024-05-26 14:43 | XMS_ITS | CCD ---
Author Organization [facility] Care Team Providers Care Plant Propagator Name Role Phone Kacey Brown Unavailable KACEY [...] Translations: [hydromorphone] Drug Allergy 0 Vomiting (disorder) [facility] (2 sources) HYDROmorphone; Translations: [Dilaudid] Drug Allergy 4 [facility]ository (1 source) HYDROmorphone Drug Allergy 3 [facility] Repository Medications Current Medications Medication Drug Class(es) Dates Sig (Normalized) Sig (Original) [id number] 200 actuat albuterol 0.09 mg/actuat metered dose [...] Daily, # 30 tab(s), Refills(s) 6, Pharmacy: [facility]/pharmacy #[id number], 160, cm, 04/15/20 13:43:00 EST, Height/Length Dosing, [...] qAM, # 90 tab(s), Refills(s) 3, Pharmacy: [facility]/pharmacy #[id number], 160, cm, 05/28/23 13:19:00 EDT, Height/Length Dosing, 62.6, kg, 05/28/23 13:19:00 EDT, Weight Dosing Start Date: 09/10/23 Status: Ordered Start: 06-15-2022 take 1 tablet by james th once daily in the morning isosorbide mononitrate 30 mg ER Tab 30 mg = 1 tab(s), Oral, qAM, # 90 tab(s), Refills(s) 3, Pharmacy: [facility]/pharmacy #[id number], 160, cm, 06/15/22 12:54:00 EDT, Height/Length Dosing, 63.8, kg, 06/15/22 12:54:00 EDT, Weight Dosing Start Date: 06/15/22 Status: Ordered Start: 05-02-2021 take 1 tablet by james th once daily in the morning isosorbide mononitrate 30 mg ER Tab 30 mg = 1 tab(s), Oral, qAM, # 90 tab(s), Refills(s) 3, Pharmacy: [facility]/pharmacy #[id number], 160, cm, 04/15/20 13:43:00 EST, Height/Length Dosing, 59, kg, 04/15/20 13:43:00 EST, Weight Dosing Start Date: 05/02/21 Status: Ordered Isosorbide [place] itrate Active lisinopril 20 mg oral tablet (8 sources) Angiotensin Converting Enzyme Inhibitor Start: 06-15-2022 take 1 tablet by mouth once daily lisinopril 20 mg Tab 20 mg = 1 tab(s), Oral, Daily, # 90 tab(s), Refills(s) 3, Pharmacy: [facility]/pharmacy #[id number], 160, cm, 06/15/22 12:54:00 EDT, Height/Length Dosing, 63.8, kg, 06/15/22 12:54:00 EDT, Weight Dosing Start Date: 06/15/22 Status: Ordered Start: 12-15-2019 take 1 tablet by james th once daily lisinopril 10 mg Tab 10 mg = 1 tab(s), Oral, Daily, # 90 tab(s), Refills(s) 1, Pharmacy: [facility]/pharmacy #[id number], 160, cm, 04/15/20 13:43:00 EST, Height/Length [...] attention, # 25 tab(s), Refills(s) 1, Pharmacy: [facility]/pharmacy #[id number], 160, cm, 05/17/21 13:29:00 EST, Height/Length Dosing, 60, kg, 05/17/21 13:29:00 EST, Weight Dosing Start Date: 05/25/21 Status: Ordered Start: 05-25-2021 Nitro 0.4 mg T ab = 1 tab(s), SubLingual, q5min, PRN Chest pain, If chest pain not relieved in 5 minutes after first dose, seek immediate medical attention, # 25 tab(s), Refills(s) 1, Pharmacy: [facility]/pharmacy #[id number], 160, cm, 05/17/21 13:29:00 EST, Height/Length [...] attention, # 25 tab(s), Refills(s) 1, Pharmacy: [facility]/pharmacy #[id number], 160, cm, 05/17/21 13:29:00 EST, Height/Length [...] BID, # 180 tab(s), Refills(s) 3, Pharmacy: [facility]/pharmacy #[id number], 160, cm, 06/15/22 12:54:00 EDT, Height/Length [...] day(s), # 90 tab(s), Refills(s) 3, Pharmacy: [facility]/pharmacy #[id number], 160, cm, 05/17/21 13:29:00 EST, Height/Length [...] Coronary atherosclerosis; Translations: [Atherosclerotic heart disease of [place] coronary artery without angina pectoris] Onset: 11-18-2021 [...] artery disease) (I25.10: Atherosclerotic heart disease of [place] coronary artery without angina pectoris) The patient [...] 11/16/2023 Family History Heart disease: Father. Normal [facility] Comment on above: Result Comment: Elec [...] with voice recognition artificial intelligence software, specifically [employer], [employer] and or [employer]. Substitutions may have occurred due to the inherent limitations of voice recognition and artificial intelligence software. ATTESTATION: Documentation services were performed after patient or guardian consented to allow [employer] to record this visit. BRETT digital strategy specialist and provider reviewed before signing. BRETT: [...] Substance Abuse, (more content not included)... Normal [facility] Comment on above: Result Comment: Elec tronically Signed By: Berto ANTHONY, Jacky Ashley\.br\Date and Time Signed: 06/20/23 11:57 EDT\.br\Electronically Co-Signed By: Perla Emerson\.br\Date and Time Co-Signed: 05/28/23 14:17 EDT Consent for Treatmenton 05-10 Consent for Treatment [id number]#1 .00TIFF Normal [facility] Physician Orderon 05-28-2023 Physician Order [id number]# 1.00TIFF Normal [facility] Outside Recordson 02-21-2023 Outside Records [id number]# 1.00TIFF Normal [facility] Urinalysis - AUTOMATEDon Appearance (U) cloudy [employer] Other Bilirubin Ql (U) Negative [employer] Other Color (U) yellow [employer] Other Glucose Ql (U) Negative [employer] Other Hemoglobin Ql (U) [employer] Other Ketones Ql (U) Negative [employer] Other Leukocyte esterase Test strip Ql (U) [employer] Other Nitrite Ql (U) Negative [employer] Other pH (U) 6.5 [pH] [employer] Other Protein Ql (U) Negative [employer] Other Specific gravity (U) [Rel density] 1.025 [employer] Other Urobilinogen (U) [Mass/Vol] 0.2 mg/dL [employer] Other Urinalysis - AUTOMATED [employer] [facility] [employer] Other Urine Cultureon 02-21-2023 Bacteria identified Cx Nom (U) Reason for Exam Dysuria Urine Reason for Exam: Dysuria : Urine >100,000 colonies/ml mixed bacterial skin contaminants 2 Days PERFORMED BY: [facility] [address] [id number] PATHOLOGIST COMBINATION MACHINE TENDER SRINIVAS BRAVO M.D. Normal [facility] Comment on above: Performed By: #### C UU #### [facility] [address], [place] [address] Bacteria identified Cx Nom (U) [employer] [facility] [employer] Other LIPID PROFILEon 02-09-2022 CHOL-HDL RATIO NORM SEE BELOW Normal [facility] Comment on above: Result Comment: 3.3 - 4.4 LOW RISK 4.4 - 7.1 AVERAGE RISK 7.1 - 11.0 MODERATE RISK >11.0 HIGH RISK Performed By: #### L IPID #### [facility] [address] [address] [address] Carolynn Hook Cholesterol [Mass/Vol] 149 mg/dL Normal <=200 [facility] Comment on above: Performed By: #### L IPID #### [facility] [address] [address] [address] Carolynn Hook Cholesterol in HDL [Mass/Vol] 50 mg/dL Normal 40-60 [facility] Comment on above: Performed By: #### L IPID #### [facility] [address] [address] [address] Carolynn Hook Cholesterol in LDL [Mass/Vol] 57.6 mg/dL Normal [facility] Comment on above: Performed By: #### L IPID #### [facility] [address] [address] [address] Carolynn Hook Cholesterol.total/C holesterol in HDL [Mass ratio] 3.0 {ratio} Normal [facility] Comment on above: Performed By: #### L IPID #### [facility] [address], [place] [address] Dr. Carolynn Hook HDL NORMAL > or = 60 mg/dl - LO W CARDIOVASCULAR RISK <40 mg/dl - HIGH CARDIOVASCULAR RISK Normal [facility] Comment on above: Performed By: #### L IPID #### [facility] [address], [place] [address] Dr. Carolynn Hook LDL CALC NORMAL SEE BELOW Normal [facility] Comment on above: Result Comment: <100 mg/dl OPTIMAL 100 - 129 mg/dl NEAR OR ABOVE OPTIMAL 130 - 159 mg/dl BORDERLINE HIGH 160 - 189 mg/dl HIGH >190 mg/dl VERY HIGH Performed By: #### L IPID #### [facility] [address] [address] [address] Carolynn Hook Triglyceride [Mass/Vol] 207 mg/dL Critically high <=150 [facility] Comment on above: Performed By: #### L IPID #### [facility] [address] [address] [address] Carolynn Hook VLDL CALC 41.4 mg/dL Normal [facility] Comment on above: Performed By: #### L IPID #### [facility] [address] CHEST WO CONon [...] AWAIS MEHTA Date: 2022-01-17 07:19 Normal [facility] MG MAMM SCREEN 3D SADA CADon 01-02-2022 MG MAMM SCREEN 3D SADA CAD Patient: CARMEN KILGORE V. Exam Date: 01/02/2022 : 1965 Gender:F Ordering : [facility] Admission #: [id number] Family : Order #: [id number] CLICK HERE TO VIEW EXAM RADIOLOGY REPORT [...] lung cancer at age 44. LOCATION: [facility] BREAST COMPOSITION: Scattered areas fibroglandular density. [...] MD on 01/02/2022 at 13:06 Normal [facility] INSULINon 11-01-2021 Insulin 12.8 uIU/mL Normal 2.6-24.9 [facility] Comment on above: Performed By: #### I NSULIN #### [facility] [address] [address] [address] Carolynn Hook T4, T3U, FTI LABCORPon 11-01 Free Thyroxine Index 2.4 Normal 1.2-4.9 [facility] Comment on above: Performed By: #### T HYLC #### [facility] [address] [address] [address] Carolynn Hook T3 Uptake 25 % Normal 24-39 [facility] Comment on above: Performed By: #### T HYLC #### [facility] [address] [place] [address] Dr. Carolynn Hook T4 [Mass/Vol] 9.5 ug/dL Normal 4.5-12.0 [facility] Comment on above: Performed By: #### T HYLC #### [facility] [address] [place] [address] Dr. Carolynn Hook CBC AUTO DIFFon 10-31-2021 BASO # 0.0 103/ul Normal 0.0-0.1 [facility] Comment on above: Performed By: #### C BC #### [facility] [address] [place] [address] Dr. Carolynn Hook Basophils/100 WBC (Bld) 0.5 % Normal 0.2-2.0 [facility] Comment on above: Performed By: #### C BC #### [facility] [address] [place] [address] Dr. Carolynn Hook EO # 0.1 103/ul Normal 0.0-0.7 [facility] Comment on above: Performed By: #### C BC #### [facility] [address] [place] [address] Dr. Carolynn Hook Eosinophils/100 WBC (Bld) 2.1 % Normal 0.9-7.0 [facility] Comment on above: Performed By: #### C BC #### [facility] [address] [place] [address] Dr. Carolynn Hook Erythrocyte distribution width (RBC) [Ratio] 12.8 % Normal 11.0-15.0 [facility] Comment on above: Performed By: #### C BC #### [facility] [address] [place] [address] Dr. Carolynn Hook Hematocrit (Bld) [Volume fraction] 49.3 % Critically high 36.0-48.0 [facility] Comment on above: Performed By: #### C BC #### [facility] [address] [place] [address] Dr. Carolynn Hook Hemoglobin (Bld) [Mass/Vol] 16.7 g/dL Critically high 12.0-16.0 [facility] Comment on above: Performed By: #### C BC #### [facility] [address] [place] [address] Dr. Carolynn Hook IG # 0.07 10e3/ul Critically high 0.00-0.03 [facility] Comment on above: Performed By: #### C BC #### [facility] [address] [place] [address] Dr. Carolynn Hook IG % 1.3 % Critically high 0.0-0.5 [facility] Comment on above: Performed By: #### C BC #### [facility] [address] [place] [address] Dr. Carolynn Hook LYMPH # 1.5 103/ul Normal 1.2-3.8 [facility] Comment on above: Performed By: #### C BC #### [facility] [address] [place] [address] Dr. Carolynn Hook Lymphocytes/100 WBC (Bld) 27.0 % Normal 20.5-60.0 [facility] Comment on above: Performed By: #### C BC #### [facility] [address] [place] [address] Dr. Carolynn Hook MANUAL DIFF REQ NO Normal [facility] Comment on above: Performed By: #### C BC #### [facility] [address] [place] [address] Dr. Carolynn Hook MCH (RBC) [Entitic mass] 31.9 pg Normal 26.7-34.0 [facility] Comment on above: Performed By: #### C BC #### [facility] [address] [place] [address] Dr. Carolynn Hook MCHC (RBC) [Mass/Vol] 33.9 g/dL Normal 29.9-35.2 [facility] Comment on above: Performed By: #### C BC #### [facility] [address] [place] [address] Dr. Carolynn Hook MCV (RBC) [Entitic vol] 94.1 fL Normal 81.0-99.0 [facility] Comment on above: Performed By: #### C BC #### [facility] [address] [place] [address] Dr. Carolynn Hook MONO # 0.5 103/ul Normal 0.3-0.8 [facility] Comment on above: Performed By: #### C BC #### [facility] [address] [place] [address] Dr. Carolynn Hook Monocytes/100 WBC (Bld) 8.2 % Normal 1.7-12.0 [facility] Comment on above: Performed By: #### C BC #### [facility] [address] [place] [address] Dr. Carolynn Hook NEUT # 3.4 103/ul Normal 1.4-6.5 [facility] Comment on above: Performed By: #### C BC #### [facility] [address] [place] [address] Dr. Carolynn Hook Neutrophils/100 WBC (Bld) 60.9 % Normal 43.0-75.0 [facility] Comment on above: Performed By: #### C BC #### [facility] [address] [place] [address] Dr. Carolynn Hook Platelet mean volume (Bld) [Entitic vol] 8.6 fL Critically low 9.5-13.5 [facility] Comment on above: Performed By: #### C BC #### [facility] [address] [place] [address] Dr. Carolynn Hook PLT 239 103/ul Normal 150-450 [facility] Comment on above: Performed By: #### C BC #### [facility] [address] [place] [address] Dr. Carolynn Hook RBC 5.24 106/ul Normal 4.20-5.40 [facility] Comment on above: Performed By: #### C BC #### [facility] [address] [place] [address] Dr. Carolynn Hook WBC 5.6 103/ul Normal 4.0-11.0 [facility] Comment on above: Performed By: #### C BC #### [facility] [address] [address] [address] Carolynn Hook GLYCOHEMOGLOBIN A1Con 2021 ADA RECOMMENDATION SEE BELOW Normal [facility] Comment on above: Result Comment: ADA RECOMMENDED LIMIT 4.0 - 6.0 ADA THERAPEUTIC TARGET < 7.0 ACTION SUGGESTED > 7.0 Performed By: #### A 1C #### [facility] [address] [address] [address] Carolynn Hook Glucose [Mass/Vol] 108 mg/dL Critically high 74-106 [facility] Comment on above: Performed By: #### A 1C #### [facility] [address] [address] [address] Carolynn Hook Performed By: #### T SH, CMP, LIPID ####[facility] [address] [address]Dr. Carolynn Hook HbA1c (Bld) [Mass fraction] 5.4 % Normal 4.5-6.2 [facility] Comment on above: Performed By: #### A 1C #### [facility] [address] [address] [address] Carolynn Hook IRONon 10-31-2021 Iron [Mass/Vol] 93.0 ug/dL Normal 50.0-170.0 [facility] Comment on above: Performed By: #### I STEVEN #### [facility] [address] [address] [address] Carolynn Hook LIPID PROFILEon 10-31-2021 CHOL-HDL RATIO NORM SEE BELOW Normal [facility] Comment on above: Result Comment: 3.3 - 4.4 LOW RISK 4.4 - 7.1 AVERAGE RISK 7.1 - 11.0 MODERATE RISK >11.0 HIGH RISK Performed By: #### T SH, CMP, LIPID ####[facility] [address] [address]Dr. Carolynn Hook Cholesterol [Mass/Vol] 314 mg/dL Critically high <=200 [facility] Comment on above: Performed By: #### T SH, CMP, LIPID ####[facility] [address] [address]Dr. Carolynn Hook Cholesterol in HDL [Mass/Vol] 65 mg/dL Critically high 40-60 [facility] Comment on above: Performed By: #### T MIKI, CMP, LIPID ####[facility] [address] [address]Dr. Carolynn Hook Cholesterol in LDL [Mass/Vol] 194.6 mg/dL Normal [facility] Comment on above: Performed By: #### T SH, CMP, LIPID ####[facility] [address] [address]Dr. Carolynn Hook Cholesterol.total/C holesterol in HDL [Mass ratio] 4.8 {ratio} Normal [facility] Comment on above: Performed By: #### T MIKI, CMP, LIPID ####[facility] [address] [address]Dr. Carolynn Hook HDL NORMAL > or = 60 mg/dl - LO W CARDIOVASCULAR RISK <40 mg/dl - HIGH CARDIOVASCULAR RISK Normal [facility] Comment on above: Performed By: #### T MIKI, CMP, LIPID ####[facility] [address] [address]Dr. Carolynn Hook LDL CALC NORMAL SEE BELOW Normal [facility] Comment on above: Result Comment: <100 mg/dl OPTIMAL 100 - 129 mg/dl NEAR OR ABOVE OPTIMAL 130 - 159 mg/dl BORDERLINE HIGH 160 - 189 mg/dl HIGH >190 mg/dl VERY HIGH Performed By: #### T MIKI, CMP, LIPID ####[facility] [address] [address]Dr. Carolynn Hook Triglyceride [Mass/Vol] 272 mg/dL Critically high <=150 [facility] Comment on above: Performed By: #### T MIKI, CMP, LIPID ####[facility] [address] [address]Dr. Carolynn Hook VLDL CALC 54.4 mg/dL Normal [facility] Comment on above: Performed By: #### T SH, CMP, LIPID ####[facility] [address] [address]Dr. Carolynn Hook PROF 14(COMP METB)on 022 Albumin [Mass/Vol] 3.9 g/dL Normal 3.4-5.0 [facility] Comment on above: Performed By: #### T MIKI, CMP, LIPID ####[facility] [address] [address]Dr. Carolynn Hook Albumin/Globulin [Mass ratio] 1.0 {ratio} Normal [facility] Comment on above: Performed By: #### T MIKI, CMP, LIPID ####[facility] [address] [address]Dr. Carolynn Hook ALP [Catalytic activity/Vol] 88 U/L Normal 46-116 [facility] Comment on above: Performed By: #### T MIKI, CMP, LIPID ####[facility] [address] [address]Dr. Carolynn Hook ALT [Catalytic activity/Vol] 23 U/L Normal 14-59 [facility] Comment on above: Performed By: #### T MIKI, CMP, LIPID ####[facility] [address] [address]Dr. Carolynn Hook Anion gap [Moles/Vol] 11.5 mmol/L Normal [facility] Comment on above: Performed By: #### T MIKI, CMP, LIPID ####[facility] [address] [address]Dr. Carolynn Hook AST [Catalytic activity/Vol] 14 U/L Critically low 15-37 [facility] Comment on above: Performed By: #### T MIKI, CMP, LIPID ####[facility] [address] [address]Dr. Carolynn Hook Bilirubin [Mass/Vol] 0.6 mg/dL Normal 0.2-1.0 [facility] Comment on above: Performed By: #### T MIKI, CMP, LIPID ####[facility] [address] [address]Dr. Carolynn Hook Calcium [Mass/Vol] 9.7 mg/dL Normal 8.5-10.1 [facility] Comment on above: Performed By: #### T SH, CMP, LIPID ####[facility] [address] [address]Dr. Carolynn Hook Chloride [Moles/Vol] 100 mmol/L Normal 98-107 [facility] Comment on above: Performed By: #### T SH, CMP, LIPID ####[facility] [address] [address]Dr. Carolynn Hook CO2 [Moles/Vol] 29.9 mmol/L Normal 21.0-32.0 [facility] Comment on above: Performed By: #### T SH, CMP, LIPID ####[facility] [address] [address]Dr. Carolynn Hook Creatinine [Mass/Vol] 0.59 mg/dL Normal 0.55-1.02 [facility] Comment on above: Performed By: #### T SH, CMP, LIPID ####[facility] [address] [address]Dr. Carolynn Hook EGFR-AF GRENADIAN >60 Normal >=60 [facility] Comment on above: Performed By: #### T SH, CMP, LIPID ####[facility] [address] [address]Dr. Carolynn Hook EGFR-NON AF GRENADIAN >60 Normal >=60 [facility] Comment on above: Performed By: #### T SH, CMP, LIPID ####[facility] [address] [id number]. Carolynn Hook Globulin (S) [Mass/Vol] 3.9 g/dL Normal [facility] Comment on above: Performed By: #### T SH, CMP, LIPID ####[facility] [address] [address]Dr. Carolynn Hook Potassium [Moles/Vol] 4.4 mmol/L Normal 3.5-5.1 [facility] Comment on above: Performed By: #### T SH, CMP, LIPID ####[facility] [address] [address]Dr. Carolynn Hook Protein [Mass/Vol] 7.8 g/dL Normal 6.4-8.2 [facility] Comment on above: Performed By: #### T SH, CMP, LIPID ####[facility] [address] [address]Dr. Carolynn Hook Sodium [Moles/Vol] 137 mmol/L Normal 136-145 [facility] Comment on above: Performed By: #### T SH, CMP, LIPID ####[facility] [address] [address]Dr. Carolynn Hook Urea nitrogen [Mass/Vol] 14.0 mg/dL Normal 7.0-18.0 [facility] Comment on above: Performed By: #### T SH, CMP, LIPID ####[facility] [address] [address]Dr. Carolynn Hook Urea nitrogen/Creatinine [Mass ratio] 23.7 mg/mg Normal [facility] Comment on above: Performed By: #### T SH, CMP, LIPID ####[facility] [address] [address]Dr. Carolynn Hook TSHon 10-31-2021 TSH 1.273 uIU/mL Normal 0.358-3.740 [facility] Comment on above: Performed By: #### T SH, CMP, LIPID ####[facility] [address] [id number]. Carolynn Hook HEMOGLOBINon 10-06-2021 Hemoglobin (Bld) [Mass/Vol] 15.7 g/dL Normal 12.0-16.0 [facility] Comment on above: Performed By: #### H GB #### [facility] [address] [address] [address] LUNG CANCER SCREENINGon [...] by: JACKIE NGUYEN Date: 2021-07-25 13:27 Normal [facility] XR hand RT min 3V*on 022 XR hand RT min 3V* [facility] [employer] Other XR hand RT min 3V* [facility] [employer] Other XR hand RT min 3V* [address] [place] [address] [employer] Other XR hand RT min 3V* [place] [address] [employer] Other XR hand RT min 3V* XRay Report [employer] Other XR hand RT min 3V* Signed [employer] Other XR hand RT min 3V* Patient: Carmen Kilgore V MR#: [id number] [employer] Other XR hand RT min 3V* [id number] [employer] Other XR hand RT min 3V* : 1965 Acct:[id number] [employer] Other XR hand RT min 3V* Age/Sex: 56 / F ADM Date: 07/13/21 [employer] Other XR hand RT min 3V* Loc: [facility] Room: Type: REG CLI [employer] Other XR hand RT min 3V* Attending Dr: Kacey MCCALL [employer] Other XR hand RT min 3V* Ordering Provider: CAL Richter [employer] Other XR hand RT min 3V* Date of Service: 07/13/21 [employer] Other XR hand RT min 3V* XR/XR hand RT min 3V*: Right hand pain [employer] Other XR hand RT min 3V* Copies to: CAL Richter [employer] Other XR hand RT min 3V* RIGHT HAND - 3 views [employer] Other XR hand RT min 3V* COMPARISON: None [employer] Other XR hand RT min 3V* REASON FOR EXAM: Right hand pain for one day. No known injury. [employer] Other XR hand RT min 3V* FINDINGS: [employer] Other XR hand RT min 3V* No focal soft tissue abnormality. No radiopaque foreign body. No acute bony process. Minimal [employer] Other XR hand RT min 3V* degenerative change. No bony erosions. [employer] Other XR hand RT min 3V* XR/XR hand RT min 3V* [employer] Other XR hand RT min 3V* IMPRESSION: [employer] Other XR hand RT min 3V* MINIMAL DEGENERATIVE CHANGE. NO ACUTE BONY PROCESS. [employer] Other XR hand RT min 3V* Impression dictated by: Sky Bush Jr., D.OJada07/13/2021 10:36 AM [employer] Other XR hand RT min 3V* Dictation Location: [address] [employer] Other XR hand RT min 3V* Transcribed By: PWS 07/13/21 1036 [employer] Other XR hand RT min 3V* Dictated By: Sky Bush Jr, DO 07/13/21 1034 [employer] Other XR hand RT min 3V* Signed By: [employer] Other XR hand RT min 3V* 07/13/[address] [place] [address] [employer] Other Vital Signs Date Time Vital Sign Value Performing Clinician Jeff henson 11-16-2023 12:45-0400 Diastolic blood pressure 78 mm[Hg] Adriel Kirnus [facility] 11-16-2023 12:45-0400 Heart rate 104 /min Adriel Kirnus [facility] 11-16-2023 12:45-0400 Respiratory rate 18 /min Adriel Kirnus [facility] 11-16-2023 12:45-0400 SaO2% (BldA) [Mass fraction] 96 % Adriel Kirnus [facility] 11-16-2023 12:45-0400 Systolic blood pressure 122 mm[Hg] Adriel Kirnus [facility] 05-28-2023 08:31-0400 Blood Pressure Location Jacky Thomson [facility] 05-28-2023 08:31-0400 Diastolic blood pressure 88 mm[Hg] Jacky Thomson [facility] 05-28-2023 08:31-0400 Heart rate 80 /min Jacky Thomson [facility] 05-28-2023 08:31-0400 SaO2% (BldA) [Mass fraction] 94 % Jacky Thomson [facility] 05-28-2023 08:31-0400 Systolic blood pressure 120 mm[Hg] Jacky Thomson [facility] 02-21-2023 12:10-0500 Body height 160.02 cm Kacey Stephanei Other [employer] Other 02-21-2023 12:10-0500 Body mass index (BMI) [Ratio] 23.56 kg/m2 Kacey Stephanie Other [employer] Other 02-21-2023 12:10-0500 Body temperature 98.2 [degF] Kacey Stephanie Other [employer] Other 02-21-2023 12:10-0500 Body weight 60.33 kg Kacey Stephanie Other [employer] Other 02-21-2023 12:10-0500 Diastolic blood pressure 81 mm[Hg] Kacey Stephanie Other [employer] Other 02-21-2023 12:10-0500 Respiratory rate 18 /min Kacey Stephanie Other [employer] Other 02-21-2023 12:10-0500 SaO2% (BldA) [Mass fraction] 94 % Kacey Stephanie Other [employer] Other 02-21-2023 12:10-0500 Systolic blood pressure 120 mm[Hg] Kacey Brown Other [place] [employer] Other 06-15-2022 12:50-0400 Blood Pressure Location Olga VAIL [facility] 06-15-2022 12:50-0400 Diastolic blood pressure 80 mm[Hg] Olga VAIL [facility] 06-15-2022 12:50-0400 Heart rate 93 /min Olgakaryn VAIL [facility] 06-15-2022 12:50-0400 SaO2% (BldA) [Mass fraction] 93 % Olgakaryn VAIL [facility] 06-15-2022 12:50-0400 Systolic blood pressure 136 mm[Hg] Olga VAIL [facility] 11-18-2021 13:55-0400 Diastolic blood pressure 83 mm[Hg] Jacky Christofferson [facility] 11-18-2021 13:55-0400 Mean blood pressure 98 mm[Hg] Jacky Christofferson [facility] 11-18-2021 13:55-0400 Systolic blood pressure 128 mm[Hg] Jacky Christofferson [facility] 11-18-2021 13:45-0400 Blood Pressure Location Jacky Christofferson [facility] 11-18-2021 13:45-0400 Diastolic blood pressure 110 mm[Hg] Jacky Christofferson [facility] 11-18-2021 13:45-0400 Heart rate 87 /min Jacky Christofferson [facility] 11-18-2021 13:45-0400 Respiratory rate 18 /min Jacky Christofferson [facility] 11-18-2021 13:45-0400 SaO2% (BldA) [Mass fraction] 100 % Jacky Thomson [facility] 11-18-2021 13:45-0400 Systolic blood pressure 153 mm[Hg] Jacky Thomson [facility] 07-13-2021 10:50-0400 Body height 160.02 cm Kacey Stephanie Other [employer] Other 07-13-2021 10:50-0400 Body mass index (BMI) [Ratio] 23.56 kg/m2 Kacey Stephanie Other [employer] Other 07-13-2021 10:50-0400 Body temperature 97.7 [degF] Kacey Stephanie Other [employer] Other 07-13-2021 10:50-0400 Body weight 60.33 kg Kacey Glezmond Other [employer] Other 07-13-2021 10:50-0400 Diastolic blood pressure 95 mm[Hg] Kacey Stephanie Other [employer] Other 07-13-2021 10:50-0400 Respiratory rate 18 /min Kacey Stephanie Other [employer] Other 07-13-2021 10:50-0400 SaO2% (BldA) [Mass fraction] 96 % Kacey Stephanie Other [employer] Other 07-13-2021 10:50-0400 Systolic blood pressure 150 mm[Hg] Kacey Brown Other [employer] Other Encounters Encounter Date Encounter Type Care Provider Facility Start: 11-16-2023 End: 11-16-2023 ambulatory XXXX NONE [facility] Start: 11-16-2023 End: 11-16-2023 Patient encounter procedure Adriel Brantley [facility] Start: 05-28-2023 End: 05-28-2023 ambulatory XXXX NONE Facility:[facility] Start: 05-28-2023 End: 05-28-2023 Patient encounter procedure Jacky Thomson [facility] Start: 02-21-2023 Office outpatient visit 15 minutes Kacey Brown [facility] Start: 02-21-2023 End: 02-21-2023 ambulatory MD Mckayla Givens Work Phone: [employer] Other Start: 02-21-2023 End: 02-21-2023 Departed Referred MD Mckayla Givens Work Phone: [facility] [place] Work Phone: Start: 06-13-2022 End: 06-15-2022 Patient encounter procedure Olga VAIL [facility] Start: 02-11-2022 Encounter for genera l adult medical examination without abnormal findings KACEY RIVERA [facility] Start: 02-09-2022 End: 02-10-2022 ambulatory KACEY RIVERA Facility:[facility] Start: 02-09-2022 End: 02-10-2022 Encounter for general adult medical examination without abnormal findings KACEY RIVERA Facility:[facility] Start: 01-16-2022 End: 01-17-2022 ambulatory KACEY RIVERA Facility:[facility] Start: 01-02-2022 End: 01-03-2022 ambulatory KACEY RIVERA Facility:[facility] Start: 11-18-2021 End: 11-18-2021 Patient encounter procedure Jacky Thomson [facility] Start: 10-31-2021 End: 11-01-2021 ambulatory KACEY RIVERA Facility:[facility] Start: 10-06-2021 End: 10-07-2021 ambulatory WING WRIGHT Facility:[facility] Start: 07-25-2021 End: 07-26-2021 ambulatory WING WRIGHT Facility:[facility] Start: 07-13-2021 End: 07-13-2021 ambulatory Kacey Brown Other [place] [employer] Other Start: 07-13-2021 Office outpatient visit 15 minutes Kacey Brown [facility] Start: 04-07-2021 [...] 02-21-2023 Bacteria identified in Urine by Culture [facility] Payers Date Payer Category Payer Self-pay [id number] 2021 Medicare [id number] 2021 Private Health Insurance 1965 Unknown [id number] 2.16.84 [id number] 1965 Unknown [id number] .16.84 [id number] 1965 Unknown [id number] .16.84 [id number] 1965 Unknown [id number] 2.16.84 [id number] 1965 Unknown [id number] 2.16.84 [id number] 1965 Unknown [id number] 2.16.84 [id number] 1965 Unknown [id number] 2.16.84 [id number] 1965 Unknown [id number] 2.16.84 [id number] 1965 Unknown [id number] 2.16.8 [id number] 1965 Unknown [id number] 2.16.8 [id number] 1960 Medicare [id number] 2.1 [id number] 1960 Private Health Insurance [id number] Unknown [id number] 2.16.8 [id number] Social History Date Type Detail Facility Sex Assigned At [employer] [facility] [employer] Other Tobacco smoking status No Smokin g Status Entered [facility] Start: 06-15-2022 End: 11-16-2023 Tobacco smoking status Heavy tobacco smoker (finding) [facility] Start: 12-24-2019 Tobacco smoking stat us VTIS Smoker (finding) [facility] Start: 1965 Sex Assigned At Female [facility] Tobacco smoking status Never [facility] Medical Equipment Procedure Code Equipment Code Equipment Origin al Text Equipment Identifier Dates Spinal fixation plate, non-bioabsorbable ()[id number] FDA Start: 12-22-2019 Spinal fixation plate, non-bioabsorbable ()[id number] FDA Start: 12-22-2019 Intervertebral-b donna internal spinal fixation system ()[id number] FDA Start: 12-22-2019 Intervertebral-b donna internal spinal fixation system ()[id number] FDA Start: 12-22-2019 Functional Status Date Assessment Result Facility 11-16-2023 Functional Status N/A [facility] 05-28-2023 Functional Status No [facility] 06-15-2022 Functional Status No [facility] 11-18-2021 Functional Status N/A [facility] Clinical Notes 05-17-2021 to 02-21-2023 Note Date [...] no improvement in 2 to 3 days [employer] Other 04-06-2023 Hospital Discharge instructions Patient Education [...] reduces withdrawal symptoms. NRT is available as: ?Qasm-xzx-drpvanl gums, lozenges, and skin patches. ?Prescription mouth [...] recovery for many people. General instructions Take dezl-tbp-tdlkppn and prescription medicines only as told by your health care provider. Check with your health care provider before taking any new prescription or mrmt-apn-xduhmyn medicines. Decide on a friend, family member, or smoking quit-line (such as 0-540-LOYC-NOW in the [place] that you can call [...] 11/01/2004 Document Revised: 02/13/2018 Document Reviewed: 02/13/2018 [employer] Patient Education 2020 [employer]. Follow Up Care 05/16/2022 16:17:12 With:Berto ANTHONY, Jacky Ashley Address: [address] [place] [address] [place] [address]- When:3 months [facility]05-04-2022 Evaluation note* Encounter Date Diagnosis Assessment [...] Other Tendonitis home care material was printed [employer] Other 03-08-2022 Hospital Discharge instructions Follow Up Care 05/17/2021 13:49:05 With:Jacky Thomson MD Address: When:6 months Comments:Call for sooner apt with new/worsening symptoms [facility] Appointment Date:05/16/2022 03:15:00 PM Scheduled Provider:Jacky Thomson MD [facility] Future App[facility]ments Appointment Date:09/14/2022 01:30:00 PM Scheduled Provider:Olga VAIL CNP Location:[facility] App[facility]ment [facility] information available [facility] Work Phone: [employer] [facility] Narrative - Reported* Type Description Date Medical History hypertension Medical History hypercholesterolemia Medical History COPD Medical History emphysema Surgical History tubal ligation Surgical History tonsillectomy and adenoidectomy Surgical History cervical Hospitalization History See Above [employer] Other [facility] general Narrative - Reported* Type Description Date Medical History hypertension Medical History hypercholesterolemia Medical History COPD Medical History emphysema Surgical History tubal ligation Surgical History tonsillectomy and adenoidectomy Surgical History cervical spine Hospitalization History See Above [employer] Other Hospital course Narrative No data available for this section [facility] No data available for this section [facility] No data available for this section [facility] Summary Purpose Family History No Family [...] and content) DATE CREATED AUTHOR 02/11/2022 [facility] DATE CREATED AUTHOR AUTHOR'S ORGANIZ ATION 04/20/2023 [facility] DATE CREATED AUTHOR AUTHOR'S ORGANIZ ATION 11/23/2023 [facility] Goals (unrecognized section and content) Goals [...] BE BASED ON THE PRIMARY CLINICAL RECORDS. [employer] [facility]. provides no warranty or guarantee of the accuracy or completeness of information in this document.
--- NOTE | 2024-05-26 15:01 | XR_ITS ---
[facility] [place] [id number] Patient Name: ANABEL KILGORE MRN: [id number] date: 1965 Sex: F Assigned Patient Location: [facility] Current Patient Location: [facility] Accession/Order Number: [id number] Exam Date: 05/26/2024 15:18 Report Date: 05/26/2024 15:19 At the request of: WING WRIGHT DO Procedure: XR chest 2V Chest 2 views CLINICAL HISTORY: Chronic Obstructive Pulmonary Disease COMPARISON: CT chest 05/19/2024 FINDINGS: Heart normal in size. Left lower lobe collapse similar to the prior CT study. No new consolidation pneumothorax pleural effusion or free air. XR/XR chest 2V IMPRESSION: LEFT LOWER LOBE COLLAPSE SIMILAR TO THE PRIOR CT STUDY. NO NEW CONSOLIDATION IS SEEN. Impression dictated by: Sky Bush Jr., D.O.05/26/2024 3:19 PM Dictation Location: [place] [address] Electronically authenticated by: [id number] Y Date: 05/26/2024 15:19
[2024-05-26 15:05] LABS: Basophils Percent Auto 0.4 % (0.2-2.0); Eosinophils Absolute Auto 0.1 10^3/uL (0.0-0.7); Eosinophils Percent Auto 1.1 % (0.9-7.0); Hematocrit 46.2 % (36.0-48.0); Hemoglobin 15.9 g/dL (12.0-16.0); Immature Granulocytes Abs Auto 0.06 10^3/uL (0.00-0.03); Immature Granulocytes Pct Auto 0.7 % (0.0-0.5); Lymphocytes Percent Auto 25.1 % (20.5-60.0); Mean Corpuscular HGB Conc 34.4 g/dL (29.9-35.2); Mean Corpuscular Hemoglobin 32.1 pg (26.7-34.0); Mean Corpuscular Volume 93.3 fL (81.0-99.0); Mean Platelet Volume 8.5 fL (9.5-13.5); Monocytes Absolute Auto 0.6 10^3/uL (0.3-0.8); Monocytes Percent Auto 7.9 % (1.7-12.0); Neutrophils Absolute Auto 5.3 10^3/uL (1.4-6.5); Neutrophils Percent Auto 64.8 % (43.0-75.0); Platelet Count 272 10^3/uL (150-450); Red Blood Count 4.95 10^6/uL (4.20-5.40); White Blood Count 8.1 10^3/uL (4.0-11.0)
[2024-05-26 15:27] LABS: Anion Gap 11.3; Calcium 10.1 mg/dL (8.5-10.1); Chloride 102 mmol/L (98-107); Estimated GFR (African America >60 (>=60 mL/min/1.73m^2); Estimated GFR (Non-African Ame >60 (>=60 mL/min/1.73m^2); Glucose 96 mg/dL (74-106); Potassium 4.3 mmol/L (3.5-5.1); Sodium 135 mmol/L (136-145)
[2024-05-26 15:29] LABS: INR 0.95; Partial Thromboplastin Time 27.1 sec (22.3-36.2); Prothrombin Time 10.1 sec (9.0-11.6)
== END 2024-05-26 14:25 | disposition home or self-care (01) ==
LOC: PST 14:25
PROVIDERS: PCP Nurse Practitioner Family; Visit Provider Internal Medicine
DX: Z01.810 Encounter for preprocedural cardiovascular examination (principal); Z01.812 Encounter for preprocedural laboratory examination; J98.19 Other pulmonary collapse
CPT/HCPCS: 71046; 80048; 85025; 85610; 85730; 93005

== ENCOUNTER 2024-06-03 06:27 | Day surgery (SDC) | payer OTHER, MEDICARE, SELFPAY ==
[2024-05-26 15:02] VITALS: BP 118/83; PULSE 81; TEMP 36.2; O2SAT 95; BMI 23.2
[2024-06-03] VITALS (11 sets, daily range): BP systolic 86–114; BP diastolic 65–86; PULSE 79–103; TEMP 36.1–36.3; O2SAT 92–97; BMI 23.2
--- OUTSIDE RECORDS SUMMARY | 2024-06-03 06:30 | XMS_ITS | CCD ---
Author Organization [facility] Care Team Providers Care Pastry Cook Helper Name Role Phone Kacey Brown Unavailable KACEY RIVERA Primary Care Physician [phone] [employer], WING Consulting Unavailable [employer], WING Attending [...] Translations: [hydromorphone] Drug Allergy 0 Vomiting (disorder) [facility] (2 sources) HYDROmorphone; Translations: [Dilaudid] Drug Allergy 4 [facility]ository (1 source) HYDROmorphone Drug Allergy 3 [facility] Repository Medications Current Medications Medication Drug Class(es) Dates Sig (Normalized) Sig (Original) [id number] 200 actuat albuterol 0.09 mg/actuat metered dose [...] Daily, # 30 tab(s), Refills(s) 6, Pharmacy: [facility]/pharmacy #[id number], 160, cm, 04/15/20 13:43:00 EST, Height/Length Dosing, [...] qAM, # 90 tab(s), Refills(s) 3, Pharmacy: [facility]/pharmacy #[id number], 160, cm, 05/28/23 13:19:00 EDT, Height/Length Dosing, 62.6, kg, 05/28/23 13:19:00 EDT, Weight Dosing Start Date: 09/10/23 Status: Ordered Start: 06-15-2022 take 1 tablet by james th once daily in the morning isosorbide mononitrate 30 mg ER Tab 30 mg = 1 tab(s), Oral, qAM, # 90 tab(s), Refills(s) 3, Pharmacy: [facility]/pharmacy #[id number], 160, cm, 06/15/22 12:54:00 EDT, Height/Length Dosing, 63.8, kg, 06/15/22 12:54:00 EDT, Weight Dosing Start Date: 06/15/22 Status: Ordered Start: 05-02-2021 take 1 tablet by james th once daily in the morning isosorbide mononitrate 30 mg ER Tab 30 mg = 1 tab(s), Oral, qAM, # 90 tab(s), Refills(s) 3, Pharmacy: [facility]/pharmacy #[id number], 160, cm, 04/15/20 13:43:00 EST, Height/Length Dosing, 59, kg, 04/15/20 13:43:00 EST, Weight Dosing Start Date: 05/02/21 Status: Ordered Isosorbide [place] itrate Active lisinopril 20 mg oral tablet (8 sources) Angiotensin Converting Enzyme Inhibitor Start: 06-15-2022 take 1 tablet by mouth once daily lisinopril 20 mg Tab 20 mg = 1 tab(s), Oral, Daily, # 90 tab(s), Refills(s) 3, Pharmacy: [facility]/pharmacy #[id number], 160, cm, 06/15/22 12:54:00 EDT, Height/Length Dosing, 63.8, kg, 06/15/22 12:54:00 EDT, Weight Dosing Start Date: 06/15/22 Status: Ordered Start: 12-15-2019 take 1 tablet by james th once daily lisinopril 10 mg Tab 10 mg = 1 tab(s), Oral, Daily, # 90 tab(s), Refills(s) 1, Pharmacy: [facility]/pharmacy #[id number], 160, cm, 04/15/20 13:43:00 [...] attention, # 25 tab(s), Refills(s) 1, Pharmacy: [facility]/pharmacy #[id number], 160, cm, 05/17/21 13:29:00 EST, Height/Length Dosing, 60, kg, 05/17/21 13:29:00 EST, Weight Dosing Start Date: 05/25/21 Status: Ordered Start: 05-25-2021 Nitro 0.4 mg T ab = 1 tab(s), SubLingual, q5min, PRN Chest pain, If chest pain not relieved in 5 minutes after first dose, seek immediate medical attention, # 25 tab(s), Refills(s) 1, Pharmacy: [facility]/pharmacy #[id number], 160, cm, 05/17/21 13:29:00 [...] attention, # 25 tab(s), Refills(s) 1, Pharmacy: [facility]/pharmacy #[id number], 160, cm, 05/17/21 13:29:00 [...] BID, # 180 tab(s), Refills(s) 3, Pharmacy: [facility]/pharmacy #[id number], 160, cm, 06/15/22 12:54:00 [...] day(s), # 90 tab(s), Refills(s) 3, Pharmacy: [facility]/pharmacy #[id number], 160, cm, 05/17/21 13:29:00 [...] Coronary atherosclerosis; Translations: [Atherosclerotic heart disease of [place] coronary artery without angina pectoris] Onset: 11-18-2021 [...] artery disease) (I25.10: Atherosclerotic heart disease of [place] coronary artery without angina pectoris) The patient [...] 11/16/2023 Family History Heart disease: Father. Normal [facility] Comment on above: Result Comment: Elec tronically [...] with voice recognition artificial intelligence software, specifically [employer], [employer] and or [employer]. Substitutions may have occurred due to the inherent limitations of voice recognition and artificial intelligence software. ATTESTATION: Documentation services were performed after patient or guardian consented to allow [employer] to record this visit. BRETT development disability specialist and provider reviewed before signing. BRETT: [...] Substance Abuse, (more content not included)... Normal [facility] Comment on above: Result Comment: Elec tronically Signed By: Berto ANTHONY, Jacky Ashley\.br\Date and Time Signed: 06/20/23 11:57 EDT\.br\Electronically Co-Signed By: Perla Emerson\.br\Date and Time Co-Signed: 05/28/23 14:17 EDT Consent for Treatmenton 05-10 Consent for Treatment [id number] .00TIFF Normal [facility] Physician Orderon 05-28-2023 Physician Order [id number]# 1.00TIFF Normal [facility] Outside Recordson 02-21-2023 Outside Records [id number]# 1.00TIFF Normal [facility] Urinalysis - AUTOMATEDon Appearance (U) cloudy [employer] Other Bilirubin Ql (U) Negative [employer] Other Color (U) yellow [employer] Other Glucose Ql (U) Negative [employer] Other Hemoglobin Ql (U) [employer] Other Ketones Ql (U) Negative [employer] Other Leukocyte esterase Test strip Ql (U) [employer] Other Nitrite Ql (U) Negative [employer] Other pH (U) 6.5 [pH] [employer] Other Protein Ql (U) Negative [employer] Other Specific gravity (U) [Rel density] 1.025 [employer] Other Urobilinogen (U) [Mass/Vol] 0.2 mg/dL [employer] Other Urinalysis - AUTOMATED [employer] [facility] [employer] Other Urine Cultureon 02-21-2023 Bacteria identified Cx Nom (U) Reason for Exam Dysuria Urine Reason for Exam: Dysuria : Urine >100,000 colonies/ml mixed bacterial skin contaminants 2 Days PERFORMED BY: [facility] [address] [id number] PATHOLOGIST [employer] RESEARCHER SRINIVAS BRAVO M.D. Normal [facility] Comment on above: Performed By: #### C UU #### [facility] [address] [place], [place] [address] Bacteria identified Cx Nom (U) [employer] [facility] [employer] Other LIPID PROFILEon 02-09-2022 CHOL-HDL RATIO NORM SEE BELOW Normal [facility] Comment on above: Result Comment: 3.3 - 4.4 LOW RISK 4.4 - 7.1 AVERAGE RISK 7.1 - 11.0 MODERATE RISK >11.0 HIGH RISK Performed By: #### L IPID #### [facility] [address] [address] [address] Carolynn Hook Cholesterol [Mass/Vol] 149 mg/dL Normal <=200 [facility] Comment on above: Performed By: #### L IPID #### [facility] [address] [address] [address] Carolynn Hook Cholesterol in HDL [Mass/Vol] 50 mg/dL Normal 40-60 [facility] Comment on above: Performed By: #### L IPID #### [facility] [address] [address] [address] Carolynn Hook Cholesterol in LDL [Mass/Vol] 57.6 mg/dL Normal [facility] Comment on above: Performed By: #### L IPID #### [facility] [address] [address] [address] Carolynn Hook Cholesterol.total/C holesterol in HDL [Mass ratio] 3.0 {ratio} Normal [facility] Comment on above: Performed By: #### L IPID #### [facility] [address] [place], [place] [address] Dr. Carolynn Hook HDL NORMAL > or = 60 mg/dl - LO W CARDIOVASCULAR RISK <40 mg/dl - HIGH CARDIOVASCULAR RISK Normal [facility] Comment on above: Performed By: #### L IPID #### [facility] [address] [place], [place] [address] Dr. Carolynn Hook LDL CALC NORMAL SEE BELOW Normal [facility] Comment on above: Result Comment: <100 mg/dl OPTIMAL 100 - 129 mg/dl NEAR OR ABOVE OPTIMAL 130 - 159 mg/dl BORDERLINE HIGH 160 - 189 mg/dl HIGH >190 mg/dl VERY HIGH Performed By: #### L IPID #### [facility] [address] [address] [address] Carolynn Hook Triglyceride [Mass/Vol] 207 mg/dL Critically high <=150 [facility] Comment on above: Performed By: #### L IPID #### [facility] [address] [address] [address] Carolynn Hook VLDL CALC 41.4 mg/dL Normal [facility] Comment on above: Performed By: #### L IPID #### [facility] [address] [address] [address] CHEST WO CONon [...] AWAIS MEHTA Date: 2022-01-17 07:19 Normal [facility] MG MAMM SCREEN 3D SADA CADon 01-02-2022 MG MAMM SCREEN 3D SADA CAD Patient: CARMEN KILGORE V. Exam Date: 01/02/2022 : 1965 Gender:F Ordering : KACEY RIVERA [facility] Admission #: [id number] Family : Order #: [id number] CLICK HERE TO VIEW EXAM RADIOLOGY REPORT [...] lung cancer at age 44. LOCATION: [facility] BREAST COMPOSITION: Scattered areas fibroglandular density. [...] MD on 01/02/2022 at 13:06 Normal [facility] INSULINon 11-01-2021 Insulin 12.8 uIU/mL Normal 2.6-24.9 [facility] Comment on above: Performed By: #### I NSULIN #### [facility] [address] [address] [address] Carolynn Hook T4, T3U, FTI LABCORPon 11-01 Free Thyroxine Index 2.4 Normal 1.2-4.9 [facility] Comment on above: Performed By: #### T HYLC #### [facility] [address] [address] [address] Carolynn Hook T3 Uptake 25 % Normal 24-39 [facility] Comment on above: Performed By: #### T HYLC #### [facility] [address] [place] [address] Dr. Carolynn Hook T4 [Mass/Vol] 9.5 ug/dL Normal 4.5-12.0 [facility] Comment on above: Performed By: #### T HYLC #### [facility] [address] [place] [address] Dr. Carolynn Hook CBC AUTO DIFFon 10-31-2021 BASO # 0.0 103/ul Normal 0.0-0.1 [facility] Comment on above: Performed By: #### C BC #### [facility] [address] [place] [address] Dr. Carolynn Hook Basophils/100 WBC (Bld) 0.5 % Normal 0.2-2.0 [facility] Comment on above: Performed By: #### C BC #### [facility] [address] [place] [address] Dr. Carolynn Hook EO # 0.1 103/ul Normal 0.0-0.7 [facility] Comment on above: Performed By: #### C BC #### [facility] [address] [place] [address] Dr. Carolynn Hook Eosinophils/100 WBC (Bld) 2.1 % Normal 0.9-7.0 [facility] Comment on above: Performed By: #### C BC #### [facility] [address] [place] [address] Dr. Carolynn Hook Erythrocyte distribution width (RBC) [Ratio] 12.8 % Normal 11.0-15.0 [facility] Comment on above: Performed By: #### C BC #### [facility] [address] [place] [address] Dr. Carolynn Hook Hematocrit (Bld) [Volume fraction] 49.3 % Critically high 36.0-48.0 [facility] Comment on above: Performed By: #### C BC #### [facility] [address] [place] [address] Dr. Caorlynn Hook Hemoglobin (Bld) [Mass/Vol] 16.7 g/dL Critically high 12.0-16.0 [facility] Comment on above: Performed By: #### C BC #### [facility] [address] [place] [address] Dr. Carolynn Hook IG # 0.07 10e3/ul Critically high 0.00-0.03 [facility] Comment on above: Performed By: #### C BC #### [facility] [address] [place] [address] Dr. Carolynn Hook IG % 1.3 % Critically high 0.0-0.[address] [facility] Comment on above: Performed By: #### C BC #### [facility] [address] [place] [address] Dr. Carloynn Hook LYMPH # 1.5 103/ul Normal 1.2-3.8 [facility] Comment on above: Performed By: #### C BC #### [facility] [address] [place] [address] Dr. Carolynn Hook Lymphocytes/100 WBC (Bld) 27.0 % Normal 20.5-60.0 [facility] Comment on above: Performed By: #### C BC #### [facility] [address] [place] [address] Dr. Carolynn Hook MANUAL DIFF REQ NO Normal [facility] Comment on above: Performed By: #### C BC #### [facility] [address] [place] [address] Dr. Carolynn Hook MCH (RBC) [Entitic mass] 31.9 pg Normal 26.7-34.0 [facility] Comment on above: Performed By: #### C BC #### [facility] [address] [place] [address] Dr. Carolynn Hook MCHC (RBC) [Mass/Vol] 33.9 g/dL Normal 29.9-35.2 [facility] Comment on above: Performed By: #### C BC #### [facility] [address] [place] [address] Dr. Carolynn Hook MCV (RBC) [Entitic vol] 94.1 fL Normal 81.0-99.0 [facility] Comment on above: Performed By: #### C BC #### [facility] [address] [place] [address] Dr. Carolynn Hook MONO # 0.5 103/ul Normal 0.3-0.8 [facility] Comment on above: Performed By: #### C BC #### [facility] [address] [place] [address] Dr. Carolynn Hook Monocytes/100 WBC (Bld) 8.2 % Normal 1.7-12.0 [facility] Comment on above: Performed By: #### C BC #### [facility] [address] [place] [address] Dr. Carolynn Hook NEUT # 3.4 103/ul Normal 1.4-6.5 [facility] Comment on above: Performed By: #### C BC #### [facility] [address] [place] [address] Dr. Carolynn Hook Neutrophils/100 WBC (Bld) 60.9 % Normal 43.0-75.0 [facility] Comment on above: Performed By: #### C BC #### [facility] [address] [place] [address] Dr. Carolynn Hook Platelet mean volume (Bld) [Entitic vol] 8.6 fL Critically low 9.5-13.5 [facility] Comment on above: Performed By: #### C BC #### [facility] [address] [place] [address] Dr. Carolynn Hook PLT 239 103/ul Normal 150-450 [facility] Comment on above: Performed By: #### C BC #### [facility] [address] [place] [address] Dr. Carolynn Hook RBC 5.24 106/ul Normal 4.20-5.40 [facility] Comment on above: Performed By: #### C BC #### [facility] [address] [place] [address] Dr. Carolynn Hook WBC 5.6 103/ul Normal 4.0-11.0 [facility] Comment on above: Performed By: #### C BC #### [facility] [address] [address] [address] Carolynn Hook GLYCOHEMOGLOBIN A1Con 2021 ADA RECOMMENDATION SEE BELOW Normal [facility] Comment on above: Result Comment: ADA RECOMMENDED LIMIT 4.0 - 6.0 ADA THERAPEUTIC TARGET < 7.0 ACTION SUGGESTED > 7.0 Performed By: #### A 1C #### [facility] [address] [address] [address] Carolynn oHok Glucose [Mass/Vol] 108 mg/dL Critically high 74-106 [facility] Comment on above: Performed By: #### A 1C #### [facility] [address] [address] [address] Carolynn Hook Performed By: #### T SH, CMP, LIPID ####[facility] [address] [address]Dr. Carolynn Hook HbA1c (Bld) [Mass fraction] 5.4 % Normal 4.5-6.2 [facility] Comment on above: Performed By: #### A 1C #### [facility] [address] [address] [address] Carolynn Hook IRONon 10-31-2021 Iron [Mass/Vol] 93.0 ug/dL Normal 50.0-170.[address] [facility] Comment on above: Performed By: #### I STEVEN #### [facility] [address] [address] [address] Carolynn Hook LIPID PROFILEon 10-31-2021 CHOL-HDL RATIO NORM SEE BELOW Normal [facility] Comment on above: Result Comment: 3.3 - 4.4 LOW RISK 4.4 - 7.1 AVERAGE RISK 7.1 - 11.0 MODERATE RISK >11.0 HIGH RISK Performed By: #### T SH, CMP, LIPID ####[facility] [address] [address]Dr. Carolynn Hook Cholesterol [Mass/Vol] 314 mg/dL Critically high <=200 [facility] Comment on above: Performed By: #### T SH, CMP, LIPID ####[facility] [address] [address]Dr. Carolynn Hook Cholesterol in HDL [Mass/Vol] 65 mg/dL Critically high 40-60 [facility] Comment on above: Performed By: #### T MIKI, CMP, LIPID ####[facility] [address] [address]Dr. Carolynn Hook Cholesterol in LDL [Mass/Vol] 194.6 mg/dL Normal [facility] Comment on above: Performed By: #### T SH, CMP, LIPID ####[facility] [address] [address]Dr. Carolynn Hook Cholesterol.total/C holesterol in HDL [Mass ratio] 4.8 {ratio} Normal [facility] Comment on above: Performed By: #### T MIKI, CMP, LIPID ####[facility] [address] [address]Dr. Carolynn Hook HDL NORMAL > or = 60 mg/dl - LO W CARDIOVASCULAR RISK <40 mg/dl - HIGH CARDIOVASCULAR RISK Normal [facility] Comment on above: Performed By: #### T MIKI, CMP, LIPID ####[facility] [address] [address]Dr. Carolynn Hook LDL CALC NORMAL SEE BELOW Normal [facility] Comment on above: Result Comment: <100 mg/dl OPTIMAL 100 - 129 mg/dl NEAR OR ABOVE OPTIMAL 130 - 159 mg/dl BORDERLINE HIGH 160 - 189 mg/dl HIGH >190 mg/dl VERY HIGH Performed By: #### T MIKI, CMP, LIPID ####[facility] [address] [address]Dr. Carolynn Hook Triglyceride [Mass/Vol] 272 mg/dL Critically high <=150 [facility] Comment on above: Performed By: #### T MIKI, CMP, LIPID ####[facility] [address] [address]Dr. Carolynn Hook VLDL CALC 54.4 mg/dL Normal [facility] Comment on above: Performed By: #### T SH, CMP, LIPID ####[facility] [address] [address]Dr. Carolynn Hook PROF 14(COMP METB)on 022 Albumin [Mass/Vol] 3.9 g/dL Normal 3.4-5.0 [facility] Comment on above: Performed By: #### T MIKI, CMP, LIPID ####[facility] [address] [address]Dr. Carolynn Hook Albumin/Globulin [Mass ratio] 1.0 {ratio} Normal [facility] Comment on above: Performed By: #### T MIKI, CMP, LIPID ####[facility] [address] [address]Dr. Carolynn Hook ALP [Catalytic activity/Vol] 88 U/L Normal 46-116 [facility] Comment on above: Performed By: #### T MIKI, CMP, LIPID ####[facility] [address] [address]Dr. Carolynn Hook ALT [Catalytic activity/Vol] 23 U/L Normal 14-59 [facility] Comment on above: Performed By: #### T MIKI, CMP, LIPID ####[facility] [address] [address]Dr. Carolynn Hook Anion gap [Moles/Vol] 11.5 mmol/L Normal [facility] Comment on above: Performed By: #### T MIKI, CMP, LIPID ####[facility] [address] [address]Dr. Carolynn Hook AST [Catalytic activity/Vol] 14 U/L Critically low 15-37 [facility] Comment on above: Performed By: #### T MIKI, CMP, LIPID ####[facility] [address] [address]Dr. Carolynn Hook Bilirubin [Mass/Vol] 0.6 mg/dL Normal 0.2-1.0 [facility] Comment on above: Performed By: #### T MIKI, CMP, LIPID ####[facility] [address] [address]Dr. Carolynn Hook Calcium [Mass/Vol] 9.7 mg/dL Normal 8.5-10.1 [facility] Comment on above: Performed By: #### T SH, CMP, LIPID ####[facility] [address] [address]Dr. Carolynn Hook Chloride [Moles/Vol] 100 mmol/L Normal 98-107 [facility] Comment on above: Performed By: #### T SH, CMP, LIPID ####[facility] [address] [address]Dr. Carolynn Hook CO2 [Moles/Vol] 29.9 mmol/L Normal 21.0-32.0 [facility] Comment on above: Performed By: #### T SH, CMP, LIPID ####[facility] [address] [address]Dr. Carolynn Hook Creatinine [Mass/Vol] 0.59 mg/dL Normal 0.55-1.02 [facility] Comment on above: Performed By: #### T SH, CMP, LIPID ####[facility] [address] [address]Dr. Carolynn Hook EGFR-AF LITHUANIAN >60 Normal >=60 [facility] Comment on above: Performed By: #### T SH, CMP, LIPID ####[facility] [address] [address]Dr. Carolynn Hook EGFR-NON AF LITHUANIAN >60 Normal >=60 [facility] Comment on above: Performed By: #### T SH, CMP, LIPID ####[facility] [address] [address]Dr. Carolynn Hook Globulin (S) [Mass/Vol] 3.9 g/dL Normal [facility] Comment on above: Performed By: #### T SH, CMP, LIPID ####[facility] [address] [address]Dr. Carolynn Hook Potassium [Moles/Vol] 4.4 mmol/L Normal 3.5-5.1 [facility] Comment on above: Performed By: #### T SH, CMP, LIPID ####[facility] [address] [address]Dr. Carolynn Hook Protein [Mass/Vol] 7.8 g/dL Normal 6.4-8.2 [facility] Comment on above: Performed By: #### T SH, CMP, LIPID ####[facility] [address] [address]Dr. Carolynn Hook Sodium [Moles/Vol] 137 mmol/L Normal 136-145 [facility] Comment on above: Performed By: #### T SH, CMP, LIPID ####[facility] [address] [address]Dr. Carolynn Hook Urea nitrogen [Mass/Vol] 14.0 mg/dL Normal 7.0-18.0 [facility] Comment on above: Performed By: #### T SH, CMP, LIPID ####[facility] [address] [address]Dr. Carolynn Hook Urea nitrogen/Creatinine [Mass ratio] 23.7 mg/mg Normal [facility] Comment on above: Performed By: #### T SH, CMP, LIPID ####[facility] [address] [address]Dr. Carolynn Hook TSHon 10-31-2021 TSH 1.273 uIU/mL Normal 0.358-3.740 [facility] Comment on above: Performed By: #### T SH, CMP, LIPID ####[facility] [address] [address]Dr. Carolynn Hook HEMOGLOBINon 10-06-2021 Hemoglobin (Bld) [Mass/Vol] 15.7 g/dL Normal 12.0-16.0 [facility] Comment on above: Performed By: #### H GB #### [facility] [address] [address] [address] LUNG CANCER SCREENINGon [...] by: JACKIE NGUYEN Date: 2021-07-25 13:27 Normal [facility] XR hand RT min 3V*on 022 XR hand RT min 3V* [facility] [employer] Other XR hand RT min 3V* [facility] [employer] Other XR hand RT min 3V* [address] [place] [address] [employer] Other XR hand RT min 3V* [place] [address] [employer] Other XR hand RT min 3V* XRay Report [employer] Other XR hand RT min 3V* Signed [employer] Other XR hand RT min 3V* Patient: Carmen Kilgore V MR#: [id number] [employer] Other XR hand RT min 3V* [id number] [employer] Other XR hand RT min 3V* : 1965 Acct:[id number] [employer] Other XR hand RT min 3V* Age/Sex: 56 / F ADM Date: 07/13/21 [employer] Other XR hand RT min 3V* Loc: [facility] Room: Type: REG CLI [employer] Other XR hand RT min 3V* Attending Dr: Kacey MCCALL [employer] Other XR hand RT min 3V* Ordering Provider: CAL Richter [employer] Other XR hand RT min 3V* Date of Service: 07/13/21 [facility] Other XR hand RT min 3V* XR/XR hand RT min 3V*: Right hand pain [facility] Other XR hand RT min 3V* Copies to: CAL Richter [facility] Other XR hand RT min 3V* RIGHT HAND - 3 views [facility] Other XR hand RT min 3V* COMPARISON: None [facility] Other XR hand RT min 3V* REASON FOR EXAM: Right hand pain for one day. No known injury. [facility] Other XR hand RT min 3V* FINDINGS: [facility] Other XR hand RT min 3V* No focal soft tissue abnormality. No radiopaque foreign body. No acute bony process. Minimal [facility] Other XR hand RT min 3V* degenerative change. No bony erosions. [facility] Other XR hand RT min 3V* XR/XR hand RT min 3V* [facility] Other XR hand RT min 3V* IMPRESSION: [facility] Other XR hand RT min 3V* MINIMAL DEGENERATIVE CHANGE. NO ACUTE BONY PROCESS. [facility] Other XR hand RT min 3V* Impression dictated by: Sky Bush Jr., D.OJada07/13/2021 10:36 AM [facility] Other XR hand RT min 3V* Dictation Location: [address] [employer] Other XR hand RT min 3V* Transcribed By: PWS 07/13/21 1036 [facility] Other XR hand RT min 3V* Dictated By: Sky Bush Jr, DO 07/13/21 1034 [facility] Other XR hand RT min 3V* Signed By: [facility] Other XR hand RT min 3V* 07/13/[address] [place] [address] [employer] Other Vital Signs Date Time Vital Sign Value Performing Clinician Jeff henson 11-16-2023 12:45-0400 Diastolic blood pressure 78 mm[Hg] Adriel Kirnus [facility] 11-16-2023 12:45-0400 Heart rate 104 /min Adriel Kirnus [facility] 11-16-2023 12:45-0400 Respiratory rate 18 /min Adriel Kirnus [facility] 11-16-2023 12:45-0400 SaO2% (BldA) [Mass fraction] 96 % Adriel Kirnus [facility] 11-16-2023 12:45-0400 Systolic blood pressure 122 mm[Hg] Adriel Kirnus [facility] 05-28-2023 08:31-0400 Blood Pressure Location Jacky Thomson [facility] 05-28-2023 08:31-0400 Diastolic blood pressure 88 mm[Hg] Jacky Thomson [facility] 05-28-2023 08:31-0400 Heart rate 80 /min Jacky Thomson [facility] 05-28-2023 08:31-0400 SaO2% (BldA) [Mass fraction] 94 % Jacky Thomson [facility] 05-28-2023 08:31-0400 Systolic blood pressure 120 mm[Hg] Jacky Thomson [facility] 02-21-2023 12:10-0500 Body height 160.02 cm Kacey Stephanie Other [facility] Other 02-21-2023 12:10-0500 Body mass index (BMI) [Ratio] 23.56 kg/m2 Kacey Stephanie Other [facility] Other 02-21-2023 12:10-0500 Body temperature 98.2 [degF] Kacey Stephanie Other [facility] Other 02-21-2023 12:10-0500 Body weight 60.33 kg Kacey Stephanie Other [facility] Other 02-21-2023 12:10-0500 Diastolic blood pressure 81 mm[Hg] Kacey Stephanie Other [facility] Other 02-21-2023 12:10-0500 Respiratory rate 18 /min Kacey Stephanie Other [facility] Other 02-21-2023 12:10-0500 SaO2% (BldA) [Mass fraction] 94 % Kacey Stephanie Other [facility] Other 02-21-2023 12:10-0500 Systolic blood pressure 120 mm[Hg] Kacey Brown Other [facility] Other 06-15-2022 12:50-0400 Blood Pressure Location Olga VAIL [facility] 06-15-2022 12:50-0400 Diastolic blood pressure 80 mm[Hg] Olga VAIL [facility] 06-15-2022 12:50-0400 Heart rate 93 /min Olgakaryn AVIL [facility] 06-15-2022 12:50-0400 SaO2% (BldA) [Mass fraction] 93 % Olgakaryn VAIL [facility] 06-15-2022 12:50-0400 Systolic blood pressure 136 mm[Hg] Olga VAIL [facility] 11-18-2021 13:55-0400 Diastolic blood pressure 83 mm[Hg] Jacky Christofferson [facility] 11-18-2021 13:55-0400 Mean blood pressure 98 mm[Hg] Jacky Christofferson [facility] 11-18-2021 13:55-0400 Systolic blood pressure 128 mm[Hg] Jacky Christofferson [facility] 11-18-2021 13:45-0400 Blood Pressure Location Jacky Christofferson [facility] 11-18-2021 13:45-0400 Diastolic blood pressure 110 mm[Hg] Jacky Christofferson [facility] 11-18-2021 13:45-0400 Heart rate 87 /min Jacky Christofferson [facility] 11-18-2021 13:45-0400 Respiratory rate 18 /min Jacky Christofferson [facility] 11-18-2021 13:45-0400 SaO2% (BldA) [Mass fraction] 100 % Jacky Thomson [facility] 11-18-2021 13:45-0400 Systolic blood pressure 153 mm[Hg] Jacky Thomson [facility] 07-13-2021 10:50-0400 Body height 160.02 cm Kacey Stephanie Other [facility] Other 07-13-2021 10:50-0400 Body mass index (BMI) [Ratio] 23.56 kg/m2 Kacey Stephanie Other [facility] Other 07-13-2021 10:50-0400 Body temperature 97.7 [degF] Kacey Stephanie Other [facility] Other 07-13-2021 10:50-0400 Body weight 60.33 kg Kacey Glezmond Other [facility] Other 07-13-2021 10:50-0400 Diastolic blood pressure 95 mm[Hg] Kacey Stephanie Other [facility] Other 07-13-2021 10:50-0400 Respiratory rate 18 /min Kacey Stephanie Other [facility] Other 07-13-2021 10:50-0400 SaO2% (BldA) [Mass fraction] 96 % Kacey Stephanie Other [facility] Other 07-13-2021 10:50-0400 Systolic blood pressure 150 mm[Hg] Kacey Brown Other [facility] Other Encounters Encounter Date Encounter Type Care Provider Facility Start: 11-16-2023 End: 11-16-2023 ambulatory XXXX NONE Facility:[facility] Start: 11-16-2023 End: 11-16-2023 Patient encounter procedure Adriel Brantley [facility] Start: 05-28-2023 End: 05-28-2023 ambulatory XXXX NONE Facility:[facility] Start: 05-28-2023 End: 05-28-2023 Patient encounter procedure Jacky Thomson [facility] Start: 02-21-2023 Office outpatient visit 15 minutes Kacey Brown [facility] Start: 02-21-2023 End: 02-21-2023 ambulatory MD Mckayla Givens Work Phone: [facility] Other Start: 02-21-2023 End: 02-21-2023 Departed Referred MD Mckayla Givens Work Phone: [facility] [place] Work Phone: Start: 06-13-2022 End: 06-15-2022 Patient encounter procedure Olga VAIL [facility] Start: 02-11-2022 Encounter for genera l adult medical examination without abnormal findings KACEY RIVERA [facility] Start: 02-09-2022 End: 02-10-2022 ambulatory KACEY RIVERA Facility:[facility] Start: 02-09-2022 End: 02-10-2022 Encounter for general adult medical examination without abnormal findings KACEY RIVERA Facility:[facility] Start: 01-16-2022 End: 01-17-2022 ambulatory KACEY RIVERA Facility:[facility] Start: 01-02-2022 End: 01-03-2022 ambulatory KACEY RIVERA Facility:[facility] Start: 11-18-2021 End: 11-18-2021 Patient encounter procedure Jacky Thomson [facility] Start: 10-31-2021 End: 11-01-2021 ambulatory KACEY RIVERA Facility:[facility] Start: 10-06-2021 End: 10-07-2021 ambulatory WING WRIGHT Facility:[facility] Start: 07-25-2021 End: 07-26-2021 ambulatory WING WRIGHT Facility:[facility] Start: 07-13-2021 End: 07-13-2021 ambulatory Kacey Brown Other [facility] Other Start: 07-13-2021 Office outpatient visit 15 minutes Kacey Brown [facility] Start: 04-07-2021 End: 05-04-2021 [...] 02-21-2023 Bacteria identified in Urine by Culture [facility] Payers Date Payer Category Payer Self-pay [id number] 2021 Medicare [id number] 2021 Private Health Insurance 1965 Unknown [id number] 2.16.84 [id number] 1965 Unknown [id number] .16.84 [id number] 1965 Unknown [id number] .16.84 [id number] 1965 Unknown [id number] 2.16.84 [id number] 1965 Unknown [id number] 2.16.84 [id number] 1965 Unknown [id number] 2.16.84 [id number] 1965 Unknown [id number] 2.16.84 [id number] 1965 Unknown [id number] 2.16.84 [id number] 1965 Unknown [id number] 2.16.8 [id number] 1965 Unknown [id number] 2.16.8 [id number] 1960 Medicare [id number] 2.1 [id number] 1960 Private Health Insurance [id number] Unknown [id number] 2.16.8 [id number] Social History Date Type Detail Facility Sex Assigned At [employer] [facility] [employer] Other Tobacco smoking status No Smokin g Status Entered [facility] Start: 06-15-2022 End: 11-16-2023 Tobacco smoking status Heavy tobacco smoker (finding) [facility] Start: 12-24-2019 Tobacco smoking stat us IDIS Smoker (finding) [facility] Start: 1965 Sex Assigned At Female F [facility] Tobacco smoking status Never [facility] Medical Equipment Procedure Code Equipment Code Equipment Origin al Text Equipment Identifier Dates Spinal fixation plate, non-bioabsorbable ()[id number] FDA Start: 12-22-2019 Spinal fixation plate, non-bioabsorbable ()[id number] FDA Start: 12-22-2019 Intervertebral-b donna internal spinal fixation system ()[id number] FDA Start: 12-22-2019 Intervertebral-b donna internal spinal fixation system ()[id number] FDA Start: 12-22-2019 Functional Status Date Assessment Result Facility 11-16-2023 Functional Status N/A [facility] 05-28-2023 Functional Status No [facility] 06-15-2022 Functional Status No [facility] 11-18-2021 Functional Status N/A [facility] Clinical Notes 05-17-2021 to 02-21-2023 Note Date [...] no improvement in 2 to 3 days [facility] Other 04-06-2023 Hospital Discharge instructions Patient Education [...] reduces withdrawal symptoms. NRT is available as: ?Wrnx-bgy-aacgkaa gums, lozenges, and skin patches. ?Prescription mouth [...] recovery for many people. General instructions Take zswa-lgl-vojvnwr and prescription medicines only as told by your health care provider. Check with your health care provider before taking any new prescription or lppz-afq-ulbroen medicines. Decide on a friend, family member, or smoking quit-line (such as 6-755-ZYLT-NOW in the [place] that you can call [...] 11/01/2004 Document Revised: 02/13/2018 Document Reviewed: 02/13/2018 [employer] Patient Education 2020 [employer]. Follow Up Care 05/16/2022 16:17:12 With:Berto ANTHONY, Jacky Ashley Address: [address] [place] [address] [place] [address]- When:3 months [facility]05-04-2022 Evaluation note* Encounter Date Diagnosis Assessment [...] Other Tendonitis home care material was printed [facility] Other 03-08-2022 Hospital Discharge instructions Follow Up Care 05/17/2021 13:49:05 With:Jacky Thomson MD Address: When:6 months Comments:Call for sooner apt with new/worsening symptoms [facility] Appointment Date:05/16/2022 03:15:00 PM Scheduled Provider:Jacky Thomson MD Location[facility] Future [facility]ments Appointment Date:09/14/2022 01:30:00 PM Scheduled Provider:Olga VAIL CNP Location:[facility] Appointment Type[facility] information available [facility] Work Phone: [facility] Narrative - Reported* Type Description Date Medical History hypertension Medical History hypercholesterolemia Medical History COPD Medical History emphysema Surgical History tubal ligation Surgical History tonsillectomy and adenoidectomy Surgical History cervical Hospitalization History See Above [facility] Other [facility] Narrative - Reported* Type Description Date Medical History hypertension Medical History hypercholesterolemia Medical History COPD Medical History emphysema Surgical History tubal ligation Surgical History tonsillectomy and adenoidectomy Surgical History cervical spine Hospitalization History See Above [facility] Other Hospital course Narrative No data available for this section [facility] No data available for this section [facility] No data available for this section [facility] Summary Purpose Family History No Family [...] and content) DATE CREATED AUTHOR 02/11/2022 [facility] DATE CREATED AUTHOR AUTHOR'S ORGANIZ ATION 04/20/2023 [facility] DATE CREATED AUTHOR AUTHOR'S ORGANIZ ATION 11/23/2023 [facility] Goals (unrecognized section and content) Goals may [...] BE BASED ON THE PRIMARY CLINICAL RECORDS. [email or web address]. provides no warranty or guarantee of the accuracy or completeness of information in this document.
[2024-06-03] MEDS: LACTATED RINGER'S SOLUTION 1,000 ML 50 ML IV (07:08)
[2024-06-03] MEDS: LIDOCAINE HCL 1% 100 MG/10 ML MDV INJ (07:41)
[2024-06-03] MEDS: EPINEPHRINE HCL PF 1 MG/ML AMPULE INJ (07:50)
--- NOTE | 2024-06-03 08:08 | P.ON_ITS ---
Date of procedure: 06/03/24 Procedure: Procedure Diagnostic flexible bronchoscopy with bronchoalveolar lavage (BAL) and endobr onchial biopsies Indication Complete collapse of left lower lobe (LLL) on LDCT 05/19/2024 Findings 1. 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 Endobronchial mass of the left lower lobe completely occluding the bronchus Anesthesia 1. General anesthesia - please see their records 2. Lidocaine 1% - 10mL Specimens 1. BAL of LLL 2. Endobronchial biopsies of LLL Estimated blood loss 1mL Complications None immediately following the procedure Description Informed consent was obtained after risks, benefits, and alternatives were discussed with the patient.? Time out was initiated to confirm the correct patient, site, and procedure with all present voicing in the affirmative. Patient was brought to the operating room suite where noninvasive monitoring was utilized.? Sedation & anesthesia were administered by the anesthesia department- please refer to their records for further information.? Tape was placed over the patient's eyes to prevent spillage of secretions.? A laryngeal mask airway was placed by anesthesia.? The vocal cords were observed and appeared edematous. The posterior laryngeal wall had a cobblestone appearance. These two findings suggest LPR.? 5mL of 1% lidocaine were instilled topically to the vocal cords.? The bronchoscope was then passed between the vocal cords and advanced through the trachea without any gross tracheal lesions. The bronchoscope reached the distal trachea where an additional 5mL of 1% lidocaine were instilled topically to the main letitia.? The main letitia was sharp without splaying or evidence of underlying mass. The bronchoscope was then advanced through the right main bronchus to the right upper lobe, where the apical, posterior, and anterior segments were visualized.? The bronchoscope was advanced through the bronchus intermedius to the right middle lobe or the medial and lateral segments visualized.? The bronchoscope was then advanced to the right lower lobe superior, medial, anterior, lateral, and posterior basilar segments.? No endobronchial lesions, exudate, or other abnormalities were noted. The bronchoscope was retracted to the main letitia and advanced through the left main bronchus to the left upper lobe where the upper division apicoposterior and anterior, as well as lingular superior and inferior segments were visualized.? The bronchoscope was then advanced into the left lower lobe where a large endobronchial lesion was completely occluding the lumen. I was unable to pass the bronchoscope past the lesion. A BAL was obtained from the LLL. Once adequate sample was obtained, five endobronchial biopsies were obtained from the LLL endobronchial lesion. There was mild bleeding/oozing from the lesion. 1mg of epinephrine was instilled topically onto the lesion which achieved hemostasis. No further intervention was required. The bronchoscope was withdrawn.? Patient tolerated procedure well. Family was updated on the patient's findings and status, with the patient previously verbalized consent. Surgeon: Antione Munguia Condition: stable Disposition: same day
== END 2024-06-03 09:20 | disposition home or self-care (01) ==
PROVIDERS: PCP Nurse Practitioner Family; Visit Provider Internal Medicine
PROC: (CPT 520; principal; 2024-06-03 07:30)
DX: C34.32 Malignant neoplasm of lower lobe, left bronchus or lung (principal); R91.8 Other nonspecific abnormal finding of lung field; I25.10 Atherosclerotic heart disease of native coronary artery without angina pectoris; J43.2 Centrilobular emphysema; F17.219 Nicotine dependence, cigarettes, with unspecified nicotine-induced disorders; Z98.51 Tubal ligation status; R06.09 Other forms of dyspnea; I10 Essential (primary) hypertension; E78.5 Hyperlipidemia, unspecified; Z95.5 Presence of coronary angioplasty implant and graft; K21.9 Gastro-esophageal reflux disease without esophagitis
CPT/HCPCS: 31624; 31625; 36415; 87070; 87102; 87116; 87205; 87206; 88112; 88305; 88341; 88342; 88360; 99999; J1100; J2250; J2371; J2405; J2704

== ENCOUNTER 2024-06-25 11:52 | Emergency (ER) | payer OTHER, MEDICARE, SELFPAY ==
[2024-06-25 11:54] VITALS: BP 125/97; PULSE 109; TEMP 36.6; O2SAT 92; BMI 22.5
[2024-06-25 11:58] VITALS: O2SAT 94
[2024-06-25 11:59] VITALS: BP 125/97
[2024-06-25 12:00] VITALS: O2SAT 92
--- NOTE | 2024-06-25 12:03 | ECG_ITS ---
[facility] Test Date: 2024-06-25 Pat Name: ANABEL KILGORE Department: Room: - Gender: Female Cardiac Rehabilitation Specialist: : 1965 Requested By: LINDA RIVERA Order Number: [id number] Asa MD: RIK DUONG M.D. Measurements Intervals [place] Rate: 100 P: 79 [place]: 168 QRS: -15 QRSD: 94 T: 70 QT: 320 QTc: 377 Interpretive Statements 1120 Sinus tachycardia 3614 Cannot rule out inferior myocardial infarction, age undetermined 8102 Low QRS voltage in chest leads 9150 abnormal ECG Compared to ECG 05/26/2024 14:53:56 Low QRS voltage now present Sinus rhythm no longer present Left ventricular hypertrophy no longer present Myocardial infarct finding still present Electronically Signed On 06-25-2024 21:16:52 EDT by RIK DUONG M.D.
--- NOTE | 2024-06-25 12:12 | ED.GENADUL1 ---
HPI HPI - General Adult General Chief complaint: Weakness Stated complaint: GENERAL WEAKNESS Time Seen by Provider: 06/25/24 11:53 Source: patient Mode of arrival: walk-in Limitations: no limitations History of Present Illness HPI narrative: Patient presents to ED complaining of decreased p.o. intake. Patient states that she was recently diagnosed with lung cancer. She is also been battling oral thrush. She has been on oral nystatin swish and swallow has her last dose tomorrow. She has been seen Dr. Hughes of pulmonology and heme-onc doctor. Patient is scheduled for PET scan and MRI on the of this month. Patient states that the food does not taste good to her and anytime she eats even soup she will get a little bit in and then she spits it back out because nothing tastes good and her stomach seems to be upset. She is able to keep water down and does appear hydrated. Patient denies any abdominal pain. No fevers. She denies vomiting but states that sometimes she coughs up thick sputum and it causes her to gag and then sometimes vomit. Patient just states she has been getting very weak because she has been unable to eat or drink much at all. She states the oral thrush has not been bothering her she did not even know that she had it. No mouth pain no throat pain. Related Data Home Medications ?Medication ?Instructions ?Recorded ?Confirmed albuterol sulfate 90 mcg/actuation 2 inh inhalation Q4H PRN shortness 05/26/24 05/26/24 aerosol inhaler of breath or wheezing aspirin 81 mg chewable tablet 1 tab PO DAILY 05/26/24 06/03/24 atorvastatin 40 mg tablet 40 mg PO DAILY 05/26/24 06/03/24 budesonide 180 mcg/actuation 2 inh inhalation Q12H 05/26/24 06/03/24 breath activated powder inhaler (Pulmicort Flexhaler) glycopyrrolate 9 mcg-formoterol 2 inh inhalation Q12H 05/26/24 06/03/24 4.8 mcg HFA aerosol inhaler (Bevespi Aerosphere) ipratropium 0.5 mg-albuterol 3 mg 3 ml inhalation QID PRN shortness 05/26/24 05/26/24 (2.5 mg base)/3 mL nebulization of breath or wheezing soln isosorbide mononitrate 30 mg 30 mg PO DAILY 05/26/24 06/03/24 tablet,extended release 24 hr lisinopril 30 mg tablet 30 mg PO DAILY 05/26/24 06/03/24 nitroglycerin 0.4 mg sublingual 0.4 mg sublingual Q5M PRN chest 05/26/24 06/03/24 tablet pain Previous Rx's ?Medication ?Instructions ?Recorded ondansetron 4 mg disintegrating 4 mg PO DAILY PRN nausea and 06/25/24 tablet vomiting #15 tabs Allergies Allergy/AdvReac Type Severity Reaction Status Date / Time hydromorphone (From Dilaudid) Allergy Vomiting Verified 06/03/24 07:03 Opioid HPI Opioid Management Most Recent Opioid Data: No Data to Display Review of Systems ROS Status of ROS 10 or more systems reviewed and unremarkable except as noted in history and below [facility] Medical History (Updated 06/25/24 @ 13:30 by Nupur Calderón DO) Arthritis ?M19.90 - Unspecified osteoarthritis, unspecified site (ICD-10) Migraine ?G43.909 - Migraine, unspecified, not intractable, without status migrainosus (ICD-10) Myocardial infarction ?I21.9 - Acute myocardial infarction, unspecified (ICD-10) High cholesterol ?E78.00 - Pure hypercholesterolemia, unspecified (ICD-10) Ectopic , tubal ?O00.109 - Unspecified tubal without intrauterine (ICD-10) Cervical myelopathy with cervical radiculopathy ?G95.9 - Disease of spinal cord, unspecified (ICD-10) ?M54.12 - Radiculopathy, cervical region (ICD-10) Intermittent claudication ?I73.9 - Peripheral vascular disease, unspecified (ICD-10) Hyperlipidemia ?E78.5 - Hyperlipidemia, unspecified (ICD-10) GERD (gastroesophageal reflux disease) ?K21.9 - Gastro-esophageal reflux disease without esophagitis (ICD-10) Allergic rhinitis ?J30.9 - Allergic rhinitis, unspecified (ICD-10) Centrilobular emphysema ?J43.2 - Centrilobular emphysema (ICD-10) Collapsed lung ?J98.19 - Other pulmonary collapse (ICD-10) PAD (peripheral artery disease) ?I73.9 - Peripheral vascular disease, unspecified (ICD-10) Hypertension ?I10 - Essential (primary) hypertension (ICD-10) COPD (chronic obstructive pulmonary disease) ?J44.9 - Chronic obstructive pulmonary disease, unspecified (ICD-10) CAD (coronary artery disease) ?I25.10 - Atherosclerotic heart disease of [place] coronary artery without angina pectoris (ICD-10) Surgical History (Updated 05/26/24 @ 14:46 by Allison Moses NP) History of spinal surgery ?Z98.890 - Other specified postprocedural states (ICD-10) History of tubal ligation ?Z98.51 - Tubal ligation status (ICD-10) History of tonsillectomy and adenoidectomy ?Z90.89 - Acquired absence of other organs (ICD-10) H/O heart artery stent ?Z95.5 - Presence of coronary angioplasty implant and graft (ICD-10) History of cardiac catheterization ?Z98.890 - Other specified postprocedural states (ICD-10) Family History (Updated 05/26/24 @ 14:46 by Allison Moses NP) Other Family history of diabetes mellitus Family history of heart disease Family history of lung cancer Family history of myocardial infarction Social History (Updated 05/26/24 @ 14:40 by Allison Moses NP) Within the past year, how often did you have a drink containing alcohol: 2-4 times a month Smoking status: Current every day smoker What tobacco products do you use: cigarettes Packs per day: 1 Years smoked: 45 Smoking pack-years: 45.00 Non-prescribed substance use: denies use Highest level of school completed/degree received: high school graduate Little interest or pleasure in doing things: not at all Feeling down, depressed, or hopeless: not at all Exam Narrative Exam Narrative: Time Seen: [] Vital Signs: [Per nurse's notes.] General: [Alert] Skin: [Warm, dry, no rash.] Head: [Normocephalic, atraumatic.] Neck: [Supple, trachea midline.] Eye: [Pupils are equal, round and reactive to light, extraocular movements are intact, normal conjunctiva.] Ears, nose, mouth and throat: oral mucosa moist. No evidence of severe thrush in the oropharynx Cardiovascular: [Regular rate and rhythm, no murmur.] Respiratory: Diminished breath sounds left base. No acute respiratory distress no wheezing Gastrointestinal: [Soft, nontender, non distended, normal bowel sounds.] MSK: 5 out of 5 muscle strength x 4 extremities no calf pain or edema Psychiatric: [Cooperative, appropriate mood & affect.] Neurological: [Alert and oriented to person, place, time, and situation, no focal neurological deficit observed.] Constitutional Vital Signs, click to edit/add: Last Vital Signs Temp 97.9 F 06/25/24 11:54 Pulse 109 H 06/25/24 11:54 Resp 18 06/25/24 11:54 BP 125/97 H 06/25/24 11:59 Pulse Ox 92 L 06/25/24 12:00 O2 Del Method Room Air 06/25/24 11:54 Course Vital Signs Vital signs: Vital Signs Temperature 97.9 F 06/25/24 11:54 Pulse Rate 109 H 06/25/24 11:54 Respiratory Rate 18 06/25/24 11:54 Blood Pressure 125/97 H 06/25/24 11:54 Pulse Oximetry 92 L 06/25/24 11:54 Oxygen Delivery Method Room Air 06/25/24 11:54 Temperature 97.9 F 06/25/24 11:54 Pulse Rate 109 H 06/25/24 11:54 Respiratory Rate 18 06/25/24 11:54 Blood Pressure 125/97 H 06/25/24 11:59 Pulse Oximetry 92 L 06/25/24 12:00 Oxygen Delivery Method Room Air 06/25/24 11:54 Medical Decision Making MDM Narrative Medical decision making narrative: Patient's labs are relatively nonacute. She did get IV fluids and feels slightly better. I will send her home with Libra to see if that helps her appetite at all. Her calcium is elevated however this most likely is due to her lung cancer. She has a follow-up appointment on the for her PET scan and MRI. I also told her to call her heme-onc doctor to see if she could get prescribed any appetite stimulants. Return to ED if worsening symptoms otherwise follow-up outpatient with pulmonary and heme-onc as scheduled. Patient is comfortable with care plan for home. Differential Diagnosis Differential Diagnosis: Dehydration weakness electrolyte abnormality Medical Records Medical records reviewed: Yes I reviewed the patient's medical records Lab Data Lab results reviewed: Yes I reviewed the patient's lab results Labs: Lab Results 06/25/24 06/25/24 Range/Units 12:14 12:25 WBC 10.9 (4.0-11.0) 10^3/uL RBC 4.88 (4.20-5.40) 10^6/uL Hgb 15.4 (12.0-16.0) g/dL Hct 45.0 (36.0-48.0) % MCV 92.2 (81.0-99.0) fL MCH 31.6 (26.7-34.0) pg MCHC 34.2 (29.9-35.2) g/dL RDW 12.4 (11.0-15.0) % Plt Count 356 (150-450) 10^3/uL MPV 8.6 L (9.5-13.5) fL Neut % (Auto) 76.0 H (43.0-75.0) % Lymph % (Auto) 12.7 L (20.5-60.0) % [place] % (Auto) 9.3 (1.7-12.0) % Eos % (Auto) 0.7 L (0.9-7.0) % Baso % (Auto) 0.7 (0.2-2.0) % Neut # (Auto) 8.2 H (1.4-6.5) 10^3/uL Lymph # (Auto) 1.4 (1.2-3.8) 10^3/uL [place] # (Auto) 1.0 H (0.3-0.8) 10^3/uL Eos # (Auto) 0.1 (0.0-0.7) 10^3/uL Baso # (Auto) 0.1 (0.0-0.1) 10^3/uL Abs Immat Gran (auto) 0.07 H (0.00-0.03) 10^3/uL Imm/Tot Granulo (auto) 0.6 H (0.0-0.5) % Sodium 131 L (136-145) mmol/L Potassium 4.6 (3.5-5.1) mmol/L Chloride 96 L (98-107) mmol/L Carbon Dioxide 26.0 (21.0-32.0) mmol/L Anion Gap 13.6 BUN 17.0 (7.0-18.0) mg/dL Creatinine 0.68 (0.55-1.02) mg/dL Est GFR ( Amer) >60 (>=60 mL/min/1.73m^2) Est GFR (Non-Af Amer) >60 (>=60 mL/min/1.73m^2) BUN/Creatinine Ratio 25.0 Glucose 86 (74-106) mg/dL Lactate 1.4 (0.4-2.0) mmol/L Calcium 14.1 H* (8.5-10.1) mg/dL Total Bilirubin 0.7 (0.2-1.0) mg/dL AST 110 H (15-37) U/L ALT 35 (14-59) U/L Alkaline Phosphatase 183 H (46-116) U/L Troponin I High Sens 11.7 (4.0-51.3) pg/mL Total Protein 7.5 (6.4-8.2) g/dL Albumin 3.2 L (3.4-5.0) g/dL Globulin 4.3 g/dL Albumin/Globulin Ratio 0.7 Urine Color Lt. yellow (YELLOW) Urine Clarity Clear (CLEAR) Urine pH 6.0 (5.0-9.0) Ur Specific [place] 1.020 (1.005-1.025) Urine Protein Negative (NEG/TRACE) mg/dL Urine Glucose (UA) Negative (NEGATIVE) mg/dL Urine Ketones 40 A (NEGATIVE) mg/dL Urine Occult Blood Negative (NEGATIVE) Urine Nitrite Negative (NEGATIVE) Urine Bilirubin Small A (NEGATIVE) Urine Urobilinogen 0.2 (0.2-1.0) EU/dL Ur Leukocyte Esterase Small A (NEGATIVE) Urine RBC 0-2 (0-2) #/HPF Urine WBC 2-5 A (NONE SEEN) #/HPF Ur Squamous Epith Cells Moderate A (NONE/RARE) #/LPF Urine Crystals None seen (None Seen) #/HPF Urine Bacteria Trace A (NONE SEEN) #/HPF Urine Casts None seen (NONE SEEN) #/LPF Urine Mucus Trace A (NONE SEEN) Ur Culture Indicated? Yes-[facility] [place] ECG Data Attestation: I personally reviewed and interpreted this ECG as follows: Interpretation: EKG INTERPRETATION Time: [] 1209 Rate: [] 100 Rhythm: _ [] Sinus tachycardia ST segments: _ [] No acute ST elevation or depression T waves: _ [] Ectopy: _ [] P wave/WI interval: _ [] QRS interval: _ [] QT interval: _ [] Comparison: _ [] Comparison EKG date: [] Performed by: [self] Discharge Plan Discharge Chief Complaint: Weakness Clinical Impression: Dehydration, Weakness Patient Disposition: Home, Self-Care Time of Disposition Decision: 13:30 Condition: Good Mode of Transportation: Private Vehicle Prescriptions / Home Meds: New ondansetron 4 mg tablet,disintegrating 4 mg PO DAILY PRN (Reason: nausea and vomiting) Qty: 15 0RF No Action atorvastatin 40 mg tablet 40 mg PO DAILY isosorbide mononitrate 30 mg tablet extended release 24 hr 30 mg PO DAILY nitroglycerin 0.4 mg tablet, sublingual 0.4 mg sublingual Q5M PRN (Reason: chest pain) lisinopril 30 mg tablet 30 mg PO DAILY aspirin 81 mg tablet,chewable 1 tab PO DAILY albuterol sulfate 90 mcg/actuation HFA aerosol inhaler 2 inh INHALATION Q4H PRN (Reason: shortness of breath or wheezing) Pulmicort Flexhaler 180 mcg/actuation aerosol powdr breath activated 2 inh INHALATION Q12H Bevespi Aerosphere 9-4.8 mcg HFA aerosol inhaler 2 inh INHALATION Q12H ipratropium-albuterol 0.5 mg-3 mg(2.5 mg base)/3 mL solution for nebulization 3 ml inhalation QID PRN (Reason: shortness of breath or wheezing) Print Language: Ukrainian Instructions: Dehydration (ED) Referrals: LINDA RIVERA [Primary Care Provider] - 1 week
--- OUTSIDE RECORDS SUMMARY | 2024-06-25 12:18 | XMS_ITS | CCD ---
Author Organization [facility]iniSyn[facility] Care Team Providers Care Supervisor Tumbling And Rolling Name Role Phone Kacey Brown Unavailable KACEY RIVERA Primary Care Physician [phone] SAMSA, WNIG Consulting Unavailable SAMSA, WING Attending Unavailable MCKAYLA GIVENS Primary Care Unavailable SAMSA, WING Admitting Unavailable SAMSA, WING Admitting Unavailable SAMSA, WING Attending Unavailable MCKAYLA GIVENS Primary Care Unavailable PATRICK, DR JACKIE Boyle Consulting Unavailable SAMSA, WING Consulting Unavailable MIGUEL, KACEY Primary Care Unavailable MIGUEL, KACEY Consulting Unavailable MIGUEL, KACEY Attending Unavailable MIGUEL, KACEY Admitting Unavailable MIGUEL, KACEY Primary Care Unavailable SAMSA, WING Attending Unavailable SAMSA, WING Admitting Unavailable JANINE, DR AWAIS Cheatham Consulting Unavailable SAMSA, WING Consulting Unavailable MIGUEL, KACEY Admitting Unavailable MIGUEL, KACEY Primary Care Unavailable MIGUEL, KACEY Attending Unavailable WEST, DR AWAIS Cheatham Consulting Unavailable MIGUEL, KACEY Consulting Unavailable MISC, DR WORKMAN Attending Unavailable MISC, DR WORKMAN Admitting Unavailable CHON, MCKAYLA KAREN Primary Care Unavailable MISC, DR WORKMAN Admitting Unavailable MISC, DR WORKMAN Attending Unavailable ROSS, MCKAYLA KAREN Primary Care Unavailable MIGUEL, KACEY Admitting Unavailable MIGUEL, KACEY Primary Care Unavailable MIGUEL, KACEY Consulting Unavailable MIGUEL, KACEY Attending Unavailable MD Mkcayla Givens Primary Care Provider [phone] CAL Brown Attending Provider Sam DO Wing P Attending Provider [phone] Ezra Wing P Attending Unavailable Samsa, Wing P Admitting Unavailable Ramírez Martins DO Primary Care Provider Himanshu Darling MD Unavailable Miguel YEUNG Kacey S Primary Care Provider NONE, XXXX Referring Unavailable MD Adriel Brantley Attending Unavailable Tristin Pickens Attending Unavailable NONE, XXXX Referring Unavailable Tristin Pickens Admitting Unavailable TIKA VALENTINE Attending Unavailable WING WRIGHT Referring Unavailable MIGUEL KACEY S Primary Care Unavailable WING WRIGHT Referring Unavailable KACEY RIVERA S Primary Care Unavailable Allergies Allergy Classification Reported Allergen(s) Allergy Type Date of Onset Reaction(s) Facility (9 sources) HYDROmorphone; Translations: [hydromorphone] Drug Allergy 0 Vomiting (disorder) [facility] (2 sources) HYDROmorphone; Translations: [Dilaudid] Drug Allergy 4 [facility] Rep[facility] (1 source) HYDROmorphone Drug Allergy 3 [facility] Repository (4 sources) HYDROmorphone; Translations: [HYDROMORPHONE (BULK)] Drug Allergy 5 Vomiting [facility] Medications Current Medications Medication Drug Class(es) Dates Sig (Normalized) Sig (Original) acetaminophen 325 mg / oxyCODONE hydrochloride 5 mg oral tablet (2 sources) Opioid Agonist Start: 06-19-2024 End: 07-03-2024 take 1 tablet by mouth every six hours as needed for pain oxyCODONE-acetami nophen (PERCOCET) 5-325 mg tablet Indications: Malignant neoplasm of lower lobe of left lung (HCC) Take 1 tablet by mouth every 6 hours as needed for pain for up to 14 days. 56 tablet 06/19/2024 07/03/2024 Active [id number] 200 actuat albuterol 0.09 mg/actuat metered dose inhaler (9 sources) beta2-Adrenergic Agonist Start: 12-15-2019 take 1 puff(s) by inhalation every four hours as needed Albuterol Sulfate 90 mcg/actuation HFA aerosol inhaler Active 2 PUFF INHALATION Q4H as needed for Shortness Of Breath December 15, 2019 12:00am Start: 01-11-2015 End: 06-19-2024 VENTOLIN HFA 90 mcg/actuatio n inhaler Inhale 1 Puff as instructed as needed. 01/11/2015 06/19/2024 Discontinued take 2 puff(s) by in halation every four hours as needed albuterol HFA (PROVENTIL HFA, VENTOLIN HFA) 90 mcg/actuation inhaler 2 puffs as needed for SOB Inhalation every 4 hrs for 90 days Active take 2 puff(s) by mo uth every four hours as needed Albuterol Sulfate HFA 108 (90 Base) MCG/ACT INHALE 2 PUFFS BY MOUTH EVERY 4 HOURS NEEDED FOR SHORTNESS OF BREATH Inhalation for 16 Active amLODIPine 5 mg oral tablet (3 sources) Dihydropyridine Calcium Channel David Start: 04-15-2020 take 1 tablet by mouth once daily amLODIPine 5 mg Tab 5 mg = 1 tab(s), Oral, Daily, # 30 tab(s), Refills(s) 6, Pharmacy: [facility]/pharmacy #[id number], 160, cm, 04/15/20 13:43:00 EST, Height/Length Dosing, 59, kg, 04/15/20 13:43:00 EST, Weight Dosing Start Date: 04/15/20 Status: Ordered Start: 01-18-2017 End: 06-19-2024 take 1 tablet by mouth once daily amLODIPine (NORVASC) 10 mg tablet Indications: Coronary artery disease involving oneida coronary artery of oneida heart without angina pectoris , Essential hypertension , Precordial chest pain Take 1 tablet by mouth once daily. 90 tablet 3 01/18/2017 06/19/2024 Discontinued aspirin 81 mg delayed release oral tablet (12 sources) Platelet Aggregation Inhibitor, Nonsteroidal Anti-inflammatory Drug Start: 02-02-2015 take 1 tablet by mouth once daily aspirin, enteric coated (ADULT LOW DOSE ASPIRIN) 81 mg EC tablet Take 1 tablet by mouth once daily. 0 02/02/2015 Active take 1 tablet by mouth once tulio y Aspirin 81 81 MG 1 tablet Orally Once a day Active atorvastatin 40 mg oral tablet (5 sources) HMG-CoA Reductase Inhibitor Start: 04-16-2024 take 1 tablet by mouth once daily atorvastatin (LIPITOR) 40 mg tablet Take 1 tablet by mouth once daily. 04/16/2024 Active Start: 05-28-2023 atorvastatin 4 0 mg Tab Refills(s) 0 Start Date: 05/28/23 Status: Ordered 120 actuat budesonide 0.18 mg/actuat dry powder inhaler (3 sources) Corticosteroid Start: 06-04-2024 take 2 puff(s) by inhalation twice daily PULMICORT FLEXHALER 180 mcg/actuation aepb Inhale 2 puffs as instructed two times a day. 06/04/2024 Active cephalexin 500 mg oral capsule (2 sources) Cephalosporin Antibacterial Start: 12-23-2019 take 1 capsule by mouth every eight hours Cephalexin (Keflex) 500 mg capsule Active 500 MG PO Q8H December 23, 2019 12:00am cyclobenzaprine hydrochloride 10 mg oral tablet (2 sources) Muscle Relaxant Start: 12-23-2019 take 1 tablet by mouth three times daily as needed for muscle spasms Cyclobenzaprine 10 mg tablet Active 10 MG PO Three times daily as needed for back spasms December 23, 2019 12:00am 120 actuat formoterol fumarate 0.0048 mg/actuat / glycopyrrolate 0.009 mg/actuat metered dose inhaler (8 sources) beta2-Adrenergic Agonist Start: 06-04-2024 take 2 puff(s) by inhalation twice daily BEVESPI AEROSPHERE 9-4.8 mcg Inhale 2 puffs as instructed two times a day. 06/04/2024 Active Start: 12-15-2019 Glycopyrrolate -Formoterol (Bevespi Aerosphere) 9-4.8 mcg Hfa Aerosol Inhaler Active 2 PUFF INHALATION Twice daily December 15, 2019 12:00am take 2 puff(s) by mo ut twice daily as needed Bevespi Aerosphere 9-4.8 MCG/ACT INHALE 2 PUFFS BY MOUTH TWICE A DAY Inhalation for 30 Not-Taking/PRN 24 hr isosorbide mononitrate 30 mg extended release oral tablet (10 sources) Nitrate Vasodilator Start: 04-16-2024 take 1 tablet by mouth once daily in the morning, then take 1 tablet by mouth every twenty-four hours isosorbide mononitrate ER (IMDUR) 30 mg 24 hr tablet Take 30 mg by mouth every morning. 04/16/2024 Active Start: 09-10-2023 take 1 tablet by james th once daily in the morning isosorbide mononitrate 30 mg ER Tab 30 mg = 1 tab(s), Oral, qAM, # 90 tab(s), Refills(s) 3, Pharmacy: [facility]/pharmacy #[id number], 160, cm, 05/28/23 13:19:00 EDT, Height/Length Dosing, 62.6, kg, 05/28/23 13:19:00 EDT, Weight Dosing Start Date: 09/10/23 Status: Ordered Start: 06-15-2022 take 1 tablet by james th once daily in the morning isosorbide mononitrate 30 mg ER Tab 30 mg = 1 tab(s), Oral, qAM, # 90 tab(s), Refills(s) 3, Pharmacy: [facility]/pharmacy #[id number], 160, cm, 06/15/22 12:54:00 EDT, Height/Length Dosing, 63.8, kg, 06/15/22 12:54:00 EDT, Weight Dosing Start Date: 06/15/22 Status: Ordered Start: 05-02-2021 take 1 tablet by james th once daily in the morning isosorbide mononitrate 30 mg ER Tab 30 mg = 1 tab(s), Oral, qAM, # 90 tab(s), Refills(s) 3, Pharmacy: [facility]/pharmacy #[id number], 160, cm, 04/15/20 13:43:00 EST, Height/Length Dosing, 59, kg, 04/15/20 13:43:00 EST, Weight Dosing Start Date: 05/02/21 Status: Ordered Isosorbide [place] itrate Active iv contrast (will be provided with radiology test) (2 sources) Start: 06-19-2024 End: 06-20-2024 inject 1 dose intravenously once iv contrast (will be provided with radiology test) MRI Brain Inject, intravenously, once for 1 dose.No IV access, insert saline lock prior to beginning of sedation, infusion, injection of imaging exam.Discontinue saline lock post exam. If Pt. has a central line or IVAD, may access for administration according to line specific nursing protocol.Once exam is complete flush line and de-access according to line specific nursing protocol in the MR contrast administration guidelines link 1 each 06/19/2024 06/20/2024 Active lisinopril 30 mg oral tablet (12 sources) Angiotensin Converting Enzyme Inhibitor Start: 02-02-2025 take 1 tablet by mouth once daily lisinopril (ZESTRIL) 30 mg tablet Take 1 tablet by mouth once daily. 04/13/2024 Active Start: 06-15-2022 take 1 tablet by james th once daily lisinopril 20 mg Tab 20 mg = 1 tab(s), Oral, Daily, # 90 tab(s), Refills(s) 3, Pharmacy: [facility]/pharmacy #[id number], 160, cm, 06/15/22 12:54:00 EDT, Height/Length Dosing, 63.8, kg, 06/15/22 12:54:00 EDT, Weight Dosing Start Date: 06/15/22 Status: Ordered Start: 12-15-2019 take 1 tablet by james th once daily Lisinopril 10 mg tablet Active 10 MG PO Daily December 15, 2019 12:00am take 1 tablet by james th once [...] attention, # 25 tab(s), Refills(s) 1, Pharmacy: [facility]/pharmacy #[id number], 160, cm, 05/17/21 13:29:00 EST, Height/Length Dosing, 60, kg, 05/17/21 13:29:00 EST, Weight Dosing Start Date: 05/25/21 Status: Ordered Start: 05-25-2021 Nitro 0.4 mg T ab = 1 tab(s), SubLingual, q5min, PRN Chest pain, If chest pain not relieved in 5 minutes after first dose, seek immediate medical attention, # 25 tab(s), Refills(s) 1, Pharmacy: [facility]/pharmacy #[id number], 160, cm, 05/17/21 13:29:00 EST, Height/Length Dosing, 6... Start Date: 05/25/21 Status: Ordered nitrofurantoin, macrocrystals 25 mg / nitrofurantoin, monohydrate 75 mg oral capsule (2 sources) Nitrofuran Antibacterial Start: 02-21-2023 take 1 capsule by mouth every twelve hours Macrobid 100 MG 1 cap(s) Orally bid for 5 day(s) Feb, Active nitroglycerin 0.4 mg/actuat mucosal spray (4 sources) Nitrate Vasodilator Start: 05-25-2021 Nitro 0.4 mg Tab = 1 tab(s), SubLingual, q5min, PRN Chest pain, If chest pain not relieved in 5 minutes after first dose, seek immediate medical attention, # 25 tab(s), Refills(s) 1, Pharmacy: [facility]/pharmacy #[id number], 160, cm, 05/17/21 13:29:00 EST, Height/Length Dosing, 6... Start Date: 05/25/21 Status: Ordered Start: 01-25-2015 nitroglycerin sublingual (NITROSTAT) 0.4 mg SL tablet Dissolve 1 tablet under the tongue every 5 minutes as needed. 100 tablet 3 01/25/2015 Active nystatin [id number] unt/ml oral suspension (2 sources) Polyene Antifungal Start: 06-19-2024 End: 06-26-2024 take 5 mL by mouth four times daily nystatin (MYCOSTATIN) 100,000 unit/mL suspension Take 5 mL by mouth four times daily for 7 days. Swish and swallow. 60 mL 1 06/19/2024 06/26/2024 Active oxyCODONE hydrochloride 5 mg oral capsule (2 sources) Opioid Agonist Start: 12-23-2019 take 5-10 mg by mouth every six hours as needed for pain Oxycodone 5 mg capsule Active 5 - 10 MG PO Q6H as needed for pain 60 8 December 23, 2019 phenazopyridine hydrochloride 200 mg [...] BID, # 180 tab(s), Refills(s) 3, Pharmacy: [facility]/pharmacy #[id number], 160, cm, 06/15/22 12:54:00 EDT, Height/Length Dosing, 63.8, kg, 06/15/22 12:54:00 EDT, Weight Dosing Start Date: 06/15/22 Status: Ordered ubiquinol 100 mg oral capsule [...] I10, Supply Start Date: 11/03/19 Status: Ordered clopidogrel 75 mg oral tablet (4 sources) P2Y12 Platelet Inhibitor Start: 08-17-2016 End: 06-19-2024 take 1 tablet by mouth once daily clopidogrel (PLAVIX) 75 mg tablet Take 1 tablet by mouth once daily. 90 tablet 3 08/17/2016 06/19/2024 Discontinued predniSONE 20 mg oral tablet (4 sources) [...] Refills(s) 0 Start Date: 04/04/20 Status: Ordered rosuvastatin calcium 40 mg oral tablet (9 sources) HMG-CoA Reductase Inhibitor Start: 11-23-2016 End: 06-19-2024 take 1 tablet by mouth once daily at bedtime rosuvastatin (CRESTOR) 40 mg tablet Take 40 mg by mouth daily at bedtime. 3 11/23/2016 06/19/2024 Discontinued Wrist Splint/Right XL - (3 sources) Start: 07-13-2021 Wrist Splint/R ight XL - as directed tendonitis right thumb July, Not-Taking/PRN Start: 07-13-2021 Wrist Splint/R ight XL - as directed tendonitis right thumb July, Active Problems Active Problems Problem Classification Problem Date Documented Da te Episodic/Chronic Cancer of bronchus; lung (2 sources) Malignant neoplasm of lower lobe of left lung; Translations: [Malignant neoplasm of lower lobe, left bronchus or lung] 06-19-2024 Chronic Chronic obstructive pulmonary disease and bronchiectasis (10 sources) Chronic obstructive lung disease; Translations: [Chronic obstructive pulmonary disease, unspecified] Onset: 10-06-2021 Chronic Coronary atherosclerosis and other heart disease (15 sources) Coronary atherosclerosis; Translations: [Atherosclerotic heart disease of oneida coronary artery without angina pectoris] Onset: 01-25-2015 Resolved: 04-05-2015 Chronic Essential hypertension (12 sources) Essential hypertension; Translations: [Essential (primary) hypertension] Onset: 04-05-2015 Chronic Genitourinary symptoms and ill-defined conditions (2 sources) Dysuria Episodic Other circulatory disease (5 sources) Peripheral arterial occlusive disease 02-01-2015 Chronic Other lower respiratory disease (4 sources) Solitary pulmonary nodule; Translations: [SOLITARY PULMONARY NODULE] Onset: 01-16-2022 Episodic Other nervous system disorders (1 source) Disease of spinal cord, unspecified; Translations: [DISEASE OF SPINAL CORD UNSPECIFIED] Onset: 04-11-2021 Chronic Other nervous system disorders (2 sources) Postoperative pain ; Translations: [Other acute postprocedural pain] 02-21-2023 Episodic Comment on above: Problem List clean-u p per request of Phys. EHR Cmte Other screening for suspected conditions (not mental [...] Spondylosis; intervertebral disc disorders; other back problems (5 sources) Cervical disc disorder with myelopathy; Translations: [Cervical disc disorder at C5-C6 level with myelopathy] 02-21-2023 Chronic Comment on above: Problem List clean-u p per request of Phys. EHR Cmte Spondylosis; intervertebral disc disorders; other back problems (6 sources) Cervical disc disorder with radiculopathy; Translations: [Cervical disc disorder at C6-C7 level with radiculopathy] Episodic Substance-related disorders (11 sources) Nicotine dependence; Translations: [Nicotine dependence, unspecified, uncomplicated] Onset: 07-25-2021 Chronic Comment on above: Added secondary to d ocumentation in Social History. Urinary tract infections (2 sources) Acute cystitis with hematuria Episodic Past or Other Problems Problem Classification Problem Date Documented Date Episodic/Chronic Nonspecific chest pain (6 sources) Chest pain; Translations: [Chest pain, unspecified] Onset: 01-18-2017 Episodic Comment on above: Problem List clean-u p per request of Phys. EHR Cmte Other connective tissue disease (1 source) Pain [...] Translations: [PARESTHESIA OF SKIN] Onset: 04-07-2021 Episodic Residual codes; unclassified (3 sources) Tobacco user; Translations: [Tobacco use] Onset: 07-13-2016 07-13-2016 Episodic Results Test Name Value Interpretation Reference Range Facility [facility] 06[facility]20[facility]2024 [facility] CARMEN KILGORE V ([id number]) 1965 F Date Time Provider Department 06/20/24 TIKA VALENTINE During your visit today, we recorded the following information about you: Daniel Fuentes 06/20/2024 9:27 AM Signed Patient is scheduled for her brain MRI on 06/30/24 at 2:00pm at [facility]. Patient is aware. Allergies As of Date: 06/20/2024 Noted Allergy Reaction DILAUDID (HYDROMORPHONE (BULK)) 01/25/2015 11 - Vomiting Date Reviewed: 06/18/2024 Reviewed by: Laureen Bryant MA - Fully Assessed Prescriptions as of 06/20/2024 - iv contrast (will be provided with radiology test) MRI Brain Inject, intravenously, once for 1 dose.No IV access, insert saline lock prior to beginning of sedation, infusion, injection of imaging exam.Discontinue saline lock post exam. If Pt. has a central line or IVAD, may access for administration according to line specific nursing protocol.Once exam is complete flush line and de-access according to line specific nursing protocol in the MR contrast administration guidelines link - albuterol HFA (PROVENTIL HFA, VENTOLIN HFA) 90 mcg/actuation inhaler 2 puffs as needed for SOB Inhalation every 4 hrs for 90 days - nystatin (MYCOSTATIN) 100,000 unit/mL suspension Take 5 mL by mouth four times daily for 7 days. Swish and swallow. - oxyCODONE-acetaminoph en (PERCOCET) 5-325 mg tablet Take 1 tablet by mouth every 6 hours as needed for pain for up to 14 days. - atorvastatin (LIPITOR) 40 mg tablet Take 1 tablet by mouth once daily. - BEVESPI AEROSPHERE 9-4.8 mcg Inhale 2 puffs as instructed two times a day. - lisinopril (ZESTRIL) 30 mg tablet Take 1 tablet by mouth once daily. - isosorbide mononitrate ER (IMDUR) 30 mg 24 hr tablet Take 30 mg by mouth every morning. - PULMICORT FLEXHALER 180 mcg/actuation aepb Inhale 2 puffs as instructed two times a day. - aspirin, enteric coated (ADULT LOW DOSE ASPIRIN) 81 mg EC tablet Take 1 tablet by mouth once daily. - nitroglycerin sublingual (NITROSTAT) 0.4 mg SL tablet Dissolve 1 tablet under the tongue every 5 minutes as needed. Problem List As Of Date 06/20/2024 Noted Resolved Coronary artery disease involving oneida beltran*01/25/2015 04/05/2015 Coronary artery disease involving oneida beltran*04/05/2015 Essential hypertension [I10] 04/05/2015 Tobacco abuse [Z72.0] 07/13/2016 Precordial chest pain [R07.2] 01/18/2017 Encounter Status:Closed by DANIEL FUENTES on 06/20/24 Normal [facility] CBC W Auto Differential pane l (Bld)on 06-19-2024 Basophils (Bld) [#/Vol] 0.06 10*3/uL [facility] Basophils/100 WBC (Bld) 0.6 % [facility] Differential cell count method Nom (Bld) Auto [facility] Eosinophils (Bld) [#/Vol] 0.11 10*3/uL [facility] Eosinophils/100 WBC (Bld) 1.2 % [facility] Erythrocyte distribution width (RBC) [Ratio] 12.7 % 11.5 - 15.0 % [facility] Hematocrit (Bld) [Volume fraction] 42 % 36.0 - 46.0 % [facility] ic Hemoglobin (Bld) [Mass/Vol] 14.4 g/dL 11.5 - 15.5 g/dL [facility] Immature granulocytes (Bld) [#/Vol] 0.09 10*3/uL [facility] Immature granulocytes/100 WBC (Bld) 1 % [facility] Interpretation and review of laboratory results Abnormal [facility] kip Lymphocytes (Bld) [#/Vol] 1.41 10*3/uL [facility] Lymphocytes/100 WBC (Bld) 15.1 % [facility] MCH (RBC) [Entitic mass] 32.2 pg 26.0 - 34.0 pg [facility] MCHC (RBC) [Mass/Vol] 34.3 g/dL 30.5 - 36.0 g/dL [facility] MCV (RBC) [Entitic vol] 94 fL 80.0 - 100.0 fL [facility] Monocytes (Bld) [#/Vol] 0.63 10*3/uL [facility] Monocytes/100 WBC (Bld) 6.8 % [facility] Neutrophils (Bld) [#/Vol] 7.03 10*3/uL [facility] Neutrophils/100 WBC (Bld) 75.3 % [facility] Nucleated RBC (Bld) [#/Vol] NINF [facility] Nucleated RBC/100 WBC (Bld) [Ratio] 0 % /100 WBC [facility] Platelet mean volume (Bld) [Entitic vol] 8.2 fL Low 9.0 - 12.7 fL [facility] Platelets (Bld) [#/Vol] 377 10*3/uL [facility] RBC (Bld) [#/Vol] 4.47 10*6/uL 3.90 - 5.2 0 m/uL [facility] WBC (Bld) [#/Vol] 9.33 10*3/uL [facility] Basophils (Bld) [#/Vol] 0.06 10*3/uL Normal <0.11 [facility] Comment on above: Order Comment: Speci men Type: BLOOD SPECIMEN Ordering Facility: [facility] Address: [address] [place] [address] Performed By: #### 5 7021-8 #### [facility] CLIA [id number] [address] [place] [id number] Basophils/100 WBC (Bld) 0.6 % Normal [facility] Comment on above: Order Comment: Speci men Type: BLOOD SPECIMEN Ordering Facility: [facility] Address: [address] [place] [address] Performed By: #### 5 7021-8 #### [facility] CLIA [id number] [address] [place] [id number] Differential cell count method Nom (Bld) Auto Normal [facility] Comment on above: Order Comment: Speci men Type: BLOOD SPECIMEN Ordering Facility: [facility] Address: [address] [place] [address] Performed By: #### 5 7021-8 #### [facility] CLIA [id number] [address] [place] [address] Eosinophils (Bld) [#/Vol] 0.11 10*3/uL Normal <0.46 [facility] Comment on above: Order Comment: Speci men Type: BLOOD SPECIMEN Ordering Facility: [facility] Address: [address] [place] [address] Performed By: #### 5 7021-8 #### [facility] CLIA [id number] [address] [place] [address] Eosinophils/100 WBC (Bld) 1.2 % Normal [facility] Comment on above: Order Comment: Speci men Type: BLOOD SPECIMEN Ordering Facility: [facility] Address: [address] [place] [address] Performed By: #### 5 7021-8 #### [facility] CLIA [id number] [address] [place] [address] Erythrocyte distribution width (RBC) [Ratio] 12.7 % Normal 11.5-15.0 [facility] Comment on above: Order Comment: Speci men Type: BLOOD SPECIMEN Ordering Facility: [facility] Address: [address] [place] [address] Performed By: #### 5 7021-8 #### [facility] CLIA [id number] [address] [place] [address] Hematocrit (Bld) [Volume fraction] 42.0 % Normal 36.0-46.0 [facility] Comment on above: Order Comment: Speci men Type: BLOOD SPECIMEN Ordering Facility: [facility] Address: [address] [place] [address] Performed By: #### 5 7021-8 #### [facility] CLIA [id number] [address] [place] [address] Hemoglobin (Bld) [Mass/Vol] 14.4 g/dL Normal 11.5-15.5 [facility] Comment on above: Order Comment: Speci men Type: BLOOD SPECIMEN Ordering Facility: [facility] Address: [address] [place] [address] Performed By: #### 5 7021-8 #### [facility] CLIA [id number] [address] [place] [address] Immature granulocytes (Bld) [#/Vol] 0.09 10*3/uL Normal <0.10 [facility] Comment on above: Order Comment: Speci men Type: BLOOD SPECIMEN Ordering Facility: [facility] Address: [address] [place] [address] Performed By: #### 5 7021-8 #### [facility] CLIA [id number] [address] [place] [address] Immature granulocytes/100 WBC (Bld) 1.0 % Normal [facility] [facility] Comment on above: Order Comment: Speci men Type: BLOOD SPECIMEN Ordering Facility: [facility] Address: [address] [place] [address] Performed By: #### 5 7021-8 #### [facility] CLIA [id number] [address] [place] [address]1863 Lymphocytes (Bld) [#/Vol] 1.41 10*3/uL Normal 1.00-4.00 [facility] Comment on above: Order Comment: Speci men Type: BLOOD SPECIMEN Ordering Facility: [facility] Address: [address] [place] [address] Performed By: #### 5 7021-8 #### [facility] CLIA [id number] [address] [place] [address] 63952 Lymphocytes/100 WBC (Bld) 15.1 % Normal [facility] Comment on above: Order Comment: Speci men Type: BLOOD SPECIMEN Ordering Facility: [facility] Address: [address] [place] [address] Performed By: #### 5 7021-8 #### [facility] CLIA [id number] [address] [place] [address] 09635 MCH (RBC) [Entitic mass] 32.2 pg Normal 26.0-34.0 [facility] Comment on above: Order Comment: Speci men Type: BLOOD SPECIMEN Ordering Facility: [facility] Address: [address] [place] [address] Performed By: #### 5 7021-8 #### [facility] CLIA [id number] [address] [place] [address] 67788 MCHC (RBC) [Mass/Vol] 34.3 g/dL Normal 30.5-36.0 [facility] Comment on above: Order Comment: Speci men Type: BLOOD SPECIMEN Ordering Facility: [facility] Address: [address] [place] [address] Performed By: #### 5 7021-8 #### [facility] CLIA [id number] [address] [place] [address] 18909 MCV (RBC) [Entitic vol] 94.0 fL Normal 80.0-100.0 [facility] Comment on above: Order Comment: Speci men Type: BLOOD SPECIMEN Ordering Facility: [facility] Address: [address] [place] [address] Performed By: #### 5 7021-8 #### [facility] CLIA [id number] [address] [place] [address] 06631 Monocytes (Bld) [#/Vol] 0.63 10*3/uL Normal <0.87 [facility] Comment on above: Order Comment: Speci men Type: BLOOD SPECIMEN Ordering Facility: [facility] Address: [address] [place] [address] Performed By: #### 5 7021-8 #### [facility] CLIA [id number] [address] [place] [address] 58882 Monocytes/100 WBC (Bld) 6.8 % Normal [facility] Comment on above: Order Comment: Speci men Type: BLOOD SPECIMEN Ordering Facility: [facility] Address: [address] [place] [address] Performed By: #### 5 7021-8 #### [facility] CLIA [id number] [address] [place] [address] 05421 Neutrophils (Bld) [#/Vol] 7.03 10*3/uL Normal 1.45-7.50 [facility] Comment on above: Order Comment: Speci men Type: BLOOD SPECIMEN Ordering Facility: [facility] Address: [address] [place] [address] Performed By: #### 5 7021-8 #### [facility] CLIA [id number] [address] [place] [address] 81472 Neutrophils/100 WBC (Bld) 75.3 % Normal [facility] Comment on above: Order Comment: Speci men Type: BLOOD SPECIMEN Ordering Facility: [facility] Address: [address] [place] [address] Performed By: #### 5 7021-8 #### [facility] CLIA [id number] [address] [place] [address] 94658 Nucleated RBC (Bld) [#/Vol] 10*3/uL Normal <0.01 [facility] Comment on above: Order Comment: Speci men Type: BLOOD SPECIMEN Ordering Facility: [facility] Address: [address] [place] [address] Performed By: #### 5 7021-8 #### [facility] CLIA [id number] [address] [place] [address] 58082 Nucleated RBC/100 WBC (Bld) [Ratio] 0.0 /100 WBC Normal [facility] Comment on above: Order Comment: Speci men Type: BLOOD SPECIMEN Ordering Facility: [facility] Address: [address] [place] [address] Performed By: #### 5 7021-8 #### [facility] CLIA [id number] [address] [place] [address] 51375 Platelet mean volume (Bld) [Entitic vol] 8.2 fL Low 9.0-12.7 [facility] Comment on above: Order Comment: Speci men Type: BLOOD SPECIMEN Ordering Facility: [facility] Address: [address] [place] [address] Performed By: #### 5 7021-8 #### [facility] CLIA [id number] [address] [place] [address] Platelets (Bld) [#/Vol] 377 10*3/uL Normal 150-400 [facility] Comment on above: Order Comment: Speci men Type: BLOOD SPECIMEN Ordering Facility: [facility] Address: [address] [place] [address] Performed By: #### 5 7021-8 #### [facility] CLIA [id number] [address] [place] [address] 60918 RBC (Bld) [#/Vol] 4.47 10*6/uL Normal 3.90-5.20 [facility] Comment on above: Order Comment: Speci men Type: BLOOD SPECIMEN Ordering Facility: [facility] Address: [address] [place] [address] Performed By: #### 5 7021-8 #### [facility] CLIA [id number] [address] [place] [address] 54301 WBC (Bld) [#/Vol] 9.33 10*3/uL Normal 3.70-11.00 [facility] Comment on above: Order Comment: Speci men Type: BLOOD SPECIMEN Ordering Facility: [facility] Address: [address] [place] [address] Performed By: #### 5 7021-8 #### [facility] CLIA [id number] [address] [place] [address] 08648 CNOVSPon 06-19-2024 CNOVSP Visit (SP) Office ([place]) CARMEN KILGORE V ([id number]) 1965 F Date Time Provider Department 06/19/24 11:00 AM VENNEPTIKA MOONEY During your visit today, we recorded the following information about you: Temperature Pulse Respiration Blood pressure 97.4 degrees 86/minute 16/minute 111/75 Weight 58 kg Tika Valentine MD 06/19/2024 11:25 AM Signed PATIENT NAME: Carmen Kilgore CLINIC NO.: [id number] ATTENDING PHYSICIAN: Tika Valentine MD DATE OF SERVICE: June 19, [address] Wing Wright [address] [address] thank you for referring Carmen Kilgore for an opinion regarding Lung cancer . CHIEF COMPLAINT: Lung cancer HPI: Carmen Kilgore is a 59 year old year old female with PMH of CAD s/p PCI, HTN, DLD, COPD referred to us for lung cancer. CT chest (05/29/24)- Bronchoscopy (06/03/24)- Smoked 1 pk/day for many yrs. Occasional alcohol. On disability. C/o left shoulder pain. . PET scan scheduled on 06/30/24 at [facility]. PFTs scheduled on 07/02/24. Lost 5lbs. Current Outpatient Medications Medication Sig atorvastatin (LIPITOR) 40 mg tablet Take 1 tablet by mouth once daily. BEVESPI AEROSPHERE 9-4.8 mcg Inhale 2 puffs as instructed two times a day. lisinopril (ZESTRIL) 30 mg tablet Take 1 tablet by mouth once daily. isosorbide mononitrate ER (IMDUR) 30 mg 24 hr tablet Take 30 mg by mouth every morning. PULMICORT FLEXHALER 180 mcg/actuation aepb Inhale 2 puffs as instructed two times a day. rosuvastatin (CRESTOR) 40 mg tablet Take 40 mg by mouth daily at bedtime. amLODIPine (NORVASC) 10 mg tablet Take 1 tablet by mouth once daily. clopidogrel (PLAVIX) 75 mg tablet Take 1 tablet by mouth once daily. aspirin, enteric coated (ADULT LOW DOSE ASPIRIN) 81 mg EC tablet Take 1 tablet by mouth once daily. nitroglycerin sublingual (NITROSTAT) 0.4 mg SL tablet Dissolve 1 tablet under the tongue every 5 minutes as needed. VENTOLIN HFA 90 mcg/actuation inhaler Inhale 1 Puff as instructed as needed. No current facility-administered medications for this visit. ALLERGIES Allergen Reactions Dilaudid [Hydromorp* Vomiting PAST MEDICAL HISTORY Diagnosis Date Allergic rhinitis CAD (coronary artery disease) Centrilobular emphysema (HCC) Cervical myelopathy (HCC) COPD (chronic obstructive pulmonary disease) (HCC) GERD (gastroesophageal reflux disease) HTN Hyperlipidemia PAD (peripheral artery disease) Squamous cell carcinoma of lung, left (HCC) PAST SURGICAL HISTORY Procedure Laterality Date CARDIAC CATH 02/01/2015 80-90% mid RCA in-stent restenosis. 60% mid LAD stenosis. Patent mid LCX stenosis. CARDIAC CATH 02/10/2015 Balloon angioplasty of mid RCA in-stent restenosis. No stent CC PCI CORONARY INTERVENT 01/11/2004 Distal RCA Taxus 3.0X20 mm. CC PCI CORONARY INTERVENT 12/29/2010 Distal RCA Xience 3.5X28 mm. Proximal RCA Xience 4.0X28 mm. Mid RCA Xience 3.5X28 mm. CC PCI CORONARY INTERVENT 03/28/2000 RCA 4.0X18 mm. CC PCI CORONARY INTERVENT 01/26/2011 LCX Xience 2.25X18 mm. LIG/TRNSXJ FLP TUBE ABDL/VAG APPR UNI/BI Tubal ligation PAST SURGICAL HISTORY OF Bronchoscopy PAST SURGICAL HISTORY OF Cervical Discectomy TONSILLECTOMY PRIMARY/SECONDARY Tonsillectomy FAMILY HISTORY Problem Relation Age of Onset other (Congestive Heart Failure) Mother Breast Cancer Mother Lung Cancer Mother other (other) Father Ischemic Heart Disease Father Emphysema Sister other (other) Maternal Grandmother Diabetes Maternal Grandmother other (other) Paternal Grandfather Social History Tobacco Use Smoking status: Every Day Current packs/day: 1.00 Average packs/day: 1 pack/day for 38.0 years (38.0 ttl pk-yrs) Types: Cigarettes Passive exposure: Current Smokeless tobacco: Never Substance Use Topics Alcohol use: Yes Comment: rare Drug use: No REVIEW OF SYSTEMS GENERAL: No weight loss, malaise or fevers. No night sweats. HEENT: Negative for headaches, No changes in hearing or vision, no nose bleeds or other nasal problems. RESPIRATORY: Negative for cough, wheezing and shortness of breath CARDIOVASCULAR: Negative for chest pain, leg swelling and palpitations GI: Negative for abdominal discomfort, blood in stools or black stools and change in bowel habits : Negative for dysuria, frequency and incontinence MUSCULOSKELETAL: Negative for joint pain or swelling, back pain, and muscle pain. SKIN: Negative for lesions, rash, and itching. HEMATOLOGY/LYMPHOLOGY Negative for prolonged bleeding, bruising easily, and swollen nodes. NEURO: Negative for numbness or tingling of hands/feet. No weakness. PHYSICAL EXAMINATION: There were no vitals taken for this visit. There were no vitals taken for this visit. Last 3 Encounter Wt Readings: Date: Wt: 01/18/2017 65.8 kg (145 lb) 07/13/2016 65.8 (more content not included)... Normal [facility] Comprehensive metabolic 2000 panelOrdered By: Karin Ruvalcaba on 06-19-2024 Albumin [Mass/Vol] 3.8 g/dL Low 3.9 - 4.9 g/dL [facility] ALP [Catalytic activity/Vol] 168 U/L High 34 - 123 U/L [facility] ALT [Catalytic activity/Vol] 20 U/L 7 - 38 U/L [facility] Anion gap [Moles/Vol] 9 mmol/L 8 - 15 mmol/L [facility] AST [Catalytic activity/Vol] 35 U/L 13 - 35 U/L [facility] Bilirubin [Mass/Vol] 0.4 mg/dL 0.2 - 1.3 mg/dL [facility] Calcium [Mass/Vol] 11.8 mg/dL High 8.5 - 10. 2 mg/dL [facility] Chloride [Moles/Vol] 99 mmol/L 98 - 107 mmol/L [facility] CO2 [Moles/Vol] 26 mmol/L 22 - 30 mmol/L [facility] Creatinine [Mass/Vol] 0.53 mg/dL Low 0.58 - 0.96 mg/dL [facility] GFR/1.73 sq M.predicted among non-blacks MDRD (S/P/Bld) [Vol rate/Area] 106 mL/min/{1.73_m2} - ARABELLA alvarado Comment on above: Estimated Glomerular Filtration Rate (eGFR) is calculated using the 202 CKD-EPI creatinine equation. This equation utilizes serum creatinine, sex, and age as parameters. The creatinine assay has traceable calibration to isotope dilution-mass spectrometry. Refer to KDIGO guidelines for clinical interpretation. In patients with unstable renal function, e.g. those with acute kidney injury, the eGFR may not accurately reflect actual GFR. Glucose [Mass/Vol] 107 mg/dL High 74 - 99 mg/dL [facility] Comment on above: The [place] Di[employer] Association (ADA) provides guidance for cutoff values for fasting glucose and random glucose. The ADA defines fasting as no caloric intake for at least 8 hours. Fasting plasma glucose results between 100 to 125 mg/dL indicate increased risk for diabetes (prediabetes). Fasting plasma glucose results greater than or equal to 126 mg/dL meet the criteria for diagnosis of diabetes. In the absence of unequivocal hyperglycemia, results should be confirmed by repeat testing. In a patient with classic symptoms of hyperglycemia or hyperglycemic crisis, random plasma glucose results greater than or equal to 200 mg/dL meet the criteria for diagnosis of diabetes. Reference: Standards of Medical Care in Diabetes 2016, [place] [employer]. Diabetes Care. 2016.39(Suppl 1). Interpretation and review of laboratory results [facility] Potassium [Moles/Vol] 4.2 mmol/L 3.7 - 5.1 mmol/L [facility] Protein [Mass/Vol] 7.1 g/dL 6.3 - 8.0 g/dL [facility] Sodium [Moles/Vol] 134 mmol/L Low 136 - 144 mmol/L [facility] Urea nitrogen [Mass/Vol] 7 mg/dL 7 - 21 mg/dL [facility] Clin ic Comprehensive metabolic 2000 panelon 06-19-2024 Albumin [Mass/Vol] 3.8 g/dL Low 3.9-4.9 [facility] Comment on above: Order Comment: Speci men Type: BLOOD SPECIMEN Ordering Facility: [facility] Address: [address] [place] [address] Performed By: #### 2 4323-8 #### [facility] CLIA [id number] [address] [place] [address]2668 ALP [Catalytic activity/Vol] 168 U/L High 34-123 [facility] Comment on above: Order Comment: Speci men Type: BLOOD SPECIMEN Ordering Facility: [facility] Address: [address] [place] [address] Performed By: #### 2 4323-8 #### [facility] CLIA [id number] [address] [place] [address] ALT [Catalytic activity/Vol] 20 U/L Normal 7-38 [facility] Comment on above: Order Comment: Speci men Type: BLOOD SPECIMEN Ordering Facility: [facility] Address: [address] [id number] Performed By: #### 2 4323-8 #### [facility] CLIA [id number] [address] [place] [address] Anion gap [Moles/Vol] 9 mmol/L Normal 8-15 [facility] Comment on above: Order Comment: Speci men Type: BLOOD SPECIMEN Ordering Facility: [facility] Address: [address] [place] [address] Performed By: #### 2 4323-8 #### [facility] CLIA [id number] [address] [place] [address]3358 AST [Catalytic activity/Vol] 35 U/L Normal 13-35 [facility] Comment on above: Order Comment: Speci men Type: BLOOD SPECIMEN Ordering Facility: [facility] Address: [address] [place] [address] Performed By: #### 2 4323-8 #### [facility] CLIA [id number] [address] [place] [address]27 Bilirubin [Mass/Vol] 0.4 mg/dL Normal 0.2-1.3 [facility] Comment on above: Order Comment: Speci men Type: BLOOD SPECIMEN Ordering Facility: [facility] Address: [address] [place] [address] Performed By: #### 2 4323-8 #### [facility] CLIA [id number] [address] [place] [address]1552 Calcium [Mass/Vol] 11.8 mg/dL High 8.5-10.2 [facility] Comment on above: Order Comment: Speci men Type: BLOOD SPECIMEN Ordering Facility: [facility] Address: [address] [place] [address] Performed By: #### 2 4323-8 #### [facility] CLIA [id number] [address] [place] [address] Chloride [Moles/Vol] 99 mmol/L Normal 98-107 [facility] Comment on above: Order Comment: Speci men Type: BLOOD SPECIMEN Ordering Facility: [facility] Address: [address] [place] [address] Performed By: #### 2 4323-8 #### [facility] CLIA [id number] [address] [place] [address] CO2 [Moles/Vol] 26 mmol/L Normal 22-30 [facility] Comment on above: Order Comment: Speci men Type: BLOOD SPECIMEN Ordering Facility: [facility] Address: [address] [place] [address] Performed By: #### 2 4323-8 #### [facility] CLIA [id number] [address] [place] [address] Creatinine [Mass/Vol] 0.53 mg/dL Low 0.58-0.96 [facility] Comment on above: Order Comment: Speci men Type: BLOOD SPECIMEN Ordering Facility: [facility] Address: [address] [place] [address] Performed By: #### 2 4323-8 #### [facility] CLIA [id number] [address] [place] [address]64 Creatinine and Glomerular filtration rate.predicted panel (S/P/Bld) 106 mL/min/1.73m??? Normal >=60 [facility] Comment on above: Order Comment: Speci men Type: BLOOD SPECIMEN Ordering Facility: [facility] Address: [address] [place] [address] Result Comment: Shalini mated Glomerular Filtration Rate (eGFR) is calculated using the 2020 CKD-EPI creatinine equation. This equation utilizes serum creatinine, sex, and age as parameters. The creatinine assay has traceable calibration to isotope dilution-mass spectrometry. Refer to KDIGO guidelines for clinical interpretation. In patients with unstable renal function, e.g. those with acute kidney injury, the eGFR may not accurately reflect actual GFR. Performed By: #### 2 4323-8 #### [facility] CLIA [id number] [address] [place] [address] Glucose [Mass/Vol] 107 mg/dL High 74-99 [facility] Comment on above: Order Comment: Speci men Type: BLOOD SPECIMEN Ordering Facility: [facility] Address: [address] [place] [address] Result Comment: The [place] Diabetes Association (ADA) provides guidance for cutoff values for fasting glucose and random glucose. The ADA defines fasting as no caloric intake for at least 8 hours. Fasting plasma glucose results between 100 to 125 mg/dL indicate increased risk for diabetes (prediabetes). Fasting plasma glucose results greater than or equal to 126 mg/dL meet the criteria for diagnosis of diabetes. In the absence of unequivocal hyperglycemia, results should be confirmed by repeat testing. In a patient with classic symptoms of hyperglycemia or hyperglycemic crisis, random plasma glucose results greater than or equal to 200 mg/dL meet the criteria for diagnosis of diabetes. Reference: Standards of Medical Care in Diabetes 2016, [place] [employer]. Diabetes Care. 2016.39(Suppl 1). Performed By: #### 2 4323-8 #### [facility] CLIA [id number] [address] [place] [address] Potassium [Moles/Vol] 4.2 mmol/L Normal 3.7-5.1 [facility] Comment on above: Order Comment: Speci men Type: BLOOD SPECIMEN Ordering Facility: [facility] Address: [address] [place] [address] Performed By: #### 2 4323-8 #### [facility] CLIA [id number] [address] [place] [address] Protein [Mass/Vol] 7.1 g/dL Normal 6.3-8.0 [facility] Comment on above: Order Comment: Ellioti men Type: BLOOD SPECIMEN Ordering Facility: [facility] Address: [address] [place], [place] [id number] Performed By: #### 2 4323-8 #### [facility] CLIA [id number] [address] [place] [address] [place] [address] Sodium [Moles/Vol] 134 mmol/L Low 136-144 [facility] Comment on above: Order Comment: Speci men Type: BLOOD SPECIMEN Ordering Facility: [facility] Address: [address] [place] [address] Performed By: #### 2 4323-8 #### [facility] CLIA [id number] [address] [place] [address] Urea nitrogen [Mass/Vol] 7 mg/dL Normal 7-21 [facility] Comment on above: Order Comment: Speci men Type: BLOOD SPECIMEN Ordering Facility: [facility] Address: [address] [place] [address] Performed By: #### 2 4323-8 #### [facility] CLIA [id number] [address] [place] [address] Heart and Vascular Office/Cl inic Noteon 06-18-2024 Heart and Vascular Office/Clinic Note Heart and V[facility] Office/Clinic Note Chief Complaint 6 month F/U History of Present Illness The patient is a 58-year-old female with past cardiac history of coronary artery disease, multiple PCI in the past, with last in intervention 2018. Patient also has a history of COPD, PAD, hypertension and is a cigarette smoker. Most recent heart cath in 03/2020 showed moderate coronary artery disease with patent previously placed stents and medical therapy was advised. Patient comes in for 6-month follow-up today. Reviewed prior heart caths, stress test. At last visit, patient saw Dr. Brantley at which time she was continued on current medications. Patient reports that she has been doing well from a heart standpoint, however she states that she was recently diagnosed with squamous cell lung cancer. She has a follow-up with oncology at [facility] here in the near future and we be figuring out a treatment plan from there. Patient does mention that she has chronic shortness of breath and a little bit of chest heaviness lately that she believes is related to as it feels different than her previous chest pain did. Patient reports that from a heart standpoint, she has been stable. Patient reports that she believes she has 9 stents total placed with the most recent being in 2019. She is compliant with all medications for CAD including aspirin, atorvastatin and isosorbide. She states that ever since she started isosorbide, her chest discomfort significantly improved and she is still not having anything that she believes is related to heart at this time. Patient is not taking any nitro since last visit and has not felt the need to. Patient has well-controlled blood pressure today. She is taking lisinopril in addition to the isosorbide that would have an effect on her blood pressure. She reports it is usually pretty well-controlled. Review of Systems PHQ Score Initial Depression Screen Score: 0 SCORE ROS - Provider Constitutional: no fever, no chills, no sweats, no weakness Respiratory: yes chronic shortness of breath, no cough Cardiovascular: no chest pain Neuro: no dizziness. no loss of consciousness Physical Exam Vitals & Measurements HR: 93(Peripheral) RR: 18 BP: 112/80 SpO2: 92% HT: 160 cm HT: 63 in WT: 58.2 kg WT: 128.309 lb BMI: 22.73 General: alert, no acute distress Cardiovascular: regular rate and rhythm, no murmur normal peripheral perfusion Respiratory: Lungs CTAB, respirations non labored Extremities: no edema left lower extremity. no edema right lower extremity Neurological: oriented x 4, LOC appropriate for age, speech normal Skin: Warm, dry, intact- no rash or concerning lesions [facility] with Dr. Thomson on 04/05/2020: LMT normal LAD stents patent, mild diffuse, 50% mid Lcx 50% ostial, catheter induced spasm. stents patent RCA full metal jacket, 50% mid LVEDP 10 LV 50% inferior mid akinesis Medical therapy. [1] CONCLUSIONS: Moderate coronary artery disease, patent previously placed stents. Medical therapy is advised. [2] (11/14/2019 13:47 EDT NM Stress ECG Dictation) CONCLUSIONS: 1. Normal, adequate, Lexiscan electrocardiogram. No evidence of electrocardiogram changes to suggest ischemia. Rare premature ventricular contractions noted. Baseline hypertension with appropriate blood pressure response to infusion. 2. Myocardial perfusion images to follow. 3. The patient tolerated procedure well. No complications. [2] LHC with Dr. Florentino on 07/31/2018: CONCLUSIONS: 1. Significant three vessel coronary disease. 2. Well revascularized right coronary artery with a full metal jacket of previously placed stents. 3. Critical lesions in the left circumflex both proximal and mid treated successfully with drug-eluting stents achieving excellent angiographic results. 4. Successful use of IFR to aid in intraprocedural planning. 5. Successful use of intravascular ultrasound to aid in intraprocedural planning. 6. Successful PCI of the mid left anterior descending with a single drug-eluting stent achieving excellent angiographic results. COMPLICATIONS: None immediate. RECOMMENDATIONS: Bedrest, Plavix for life and I.V. fluids. The patient will be placed on guideline directed medical therapy for both acute and chronic ischemic heart disease. [3] Assessment/Plan 1. CAD (coronary artery disease) (I25.10: Atherosclerotic heart disease of [place] coronary artery without angina pectoris) Patient has a history of CAD with prior PCI but most recent being GALILEO x 1 to LAD in 07/2018. Patient is compliant with aspirin 81 mg daily, atorvastatin 40 mg daily and is taking isosorbide 30 mg ER daily for anginal symptoms. Patient has not had any chest pain or anginal symptoms anytime recently and is stable. Continue with current medications 2. HTN (hypertension) (I10: Essential (primary) hypertension) Blood pressure very well-controlled in the office today and is at goal. Patient is currently ta (more content not included)... Normal [facility] Comment on above: Result Comment: Elec tronically Signed By: Tristin Pickens PA-C\.cheri\Date and Time Signed: 06/18/24 13:39 EDT Jon 06-03-2024 L - -------- Specimen: [id number] Received: 06/04/24 Status: HIRO Keita Num: [id number] Spec Type: Surgical Subm Dr: Wing Wright DO Tissues: A Bronchus, Biopsy (LEFT LOWER LOBE BRONCHUS) Procedures: SYNAP, S 100, HE/2, Gross/Micro L4, CHROM A, AE1-AE3, CK5 6, CK20, CK 7, Ki-67, NAPSIN A, p63, TTF1, p40 -------- Age/ Patient Sex Location Account Attending Physician -------- Carmen Kilgore V 59/F LABE[facility] [id number] Wing Wright DO -------- SPEC NUM: [id number] RECD: 06/04/24 STATUS: HIRO KEITA NUM: [id number] JOSE L: 06/03/[address] [facility] DR: Wing Wright DO ENTERED: 06/04/[address] [facility] [address]: Liat,Lab SPEC TYPE: Surgical DEPT: RANDOLPH GARAY ENTERED BY: [id number] RECV BY: [id number] ORDERED: SYNAP, S 100, HE/2, Gross/Micro L4, CHROM A, AE1-AE3, CK5 6, CK20, CK 7, Ki-67, NAPSIN A, p63, TTF1, p40 ORDERED: SYNAP, S 100, HE/2, Gross/Micro L4, CHROM A, AE1-AE3, CK5 6, CK20, CK 7, Ki-67, NAPSIN A, p63, TTF1, p40 Pathological Diagnosis Left lower lobe, endobronchial mass, biopsy: - Invasive moderately differentiated squamous cell carcinoma. - See Comment. Comment: Immunohistochemical stains were performed on the tissue block with appropriate staining controls. Tumor cells are positive for AE1/AE3, CK5/6, P40 and P63, and are negative for Chromogranin, Synaptophysin, CK7, CK20, Napsin-A, TTF-1 and S100. Ki67 proliferative index is high (about 60%). Immunostains support the above diagnosis. Clinical, radiologic and pathologic correlation is required in order to to identify primary versus metastatic s quamous cell carcinoma. Clinical Information Left lower lobe endobronchial mass. Gross Description Received in formalin labeled with the patients name, date of , and left lower lobe bronchus is a Telfa pad with adherent, verdugo-pink, focally erythematous, delicate tissue bits, 0.8 x 0.5 x 0.2 cm in aggregate. The specimen is filtered and entirely submitted in a single cassette. (1, ns, [id number]) SANA -------- Specimen: [id number] Received: 06/04/24 Status: HIRO Keita Num: [id number] Spec Type: Surgical Subm Dr: Wing Wright DO Tissues: A Bronchus, Biopsy (LEFT LOWER LOBE BRONCHUS) Procedures: SYNAP, S 100, HE/2, Gross/Micro L4, CHROM A, AE1-AE3, CK5 6, CK20, CK 7, Ki-67, NAPSIN A, p63, TTF1, p40 -------- Patient: SergeyCarmen V [id number] (Continued) -------- Specimen: [id number] Received: 06/04/24 (Continued) Signed (signature on file) Jake Gallardo MD 06/06/24 1509 -------- Specimen: [id number] Received: 06/04/24 Status: HIRO Keita Num: [id number] Spec Type: Surgical Subm Dr: Wing Wright DO Tissues: A Bronchus, Biopsy (LEFT LOWER LOBE BRONCHUS) Procedures: SYNAP, S 100, HE/2, Gross/Micro L4, CHROM A, AE1-AE3, CK5 6, CK20, CK 7, Ki-67, NAPSIN A, p63, TTF1, p40 -------- Patient: SergeyCarmen V [id number] (Continued) -------- Specimen: [id number] Received: 06/04/24 (Continued) Microscopic Description Microscopic examination is performed. CPT Codes 78507, 41638, 17183, 48957 x10 -------- -------- Specimen: [id number] Received: 06/04/24 Status: HIRO Keita Num: [id number] Spec Type: Surgical Subm Dr: Wing Wright DO Tissues: A Bronchus, Biopsy (LEFT LOWER LOBE BRONCHUS) Procedures: SYNAP, S 100, HE/2, Gross/Micro L4, CHROM A, AE1-AE3, CK5 6, CK20, CK 7, Ki-67, NAPSIN A, p63, TTF1, p40 -------- Patient: Carmen Kilgore V [id number] (Continued) -------- Signed (signature on file) Jake Gallardo MD 06/06/24 1509 Normal [facility] L - -------- Specimen: [id number] Received: 06/04/24 Status: HIRO Keita Num: [id number] Spec Type: Cytology Subm Dr: Wing Wright DO Tissues: A BRONWASH (LLL LAVAGE) Procedures: HE/3, Gross/Micro L4, CK5 6, TTF1, Cyto Prepstain, p40, PAPSTN -------- Age/ Patient Sex Location Account Attending Physician -------- SergeyMichaelCarmen V 59/F LABELL [id number] Wing Wright, DO -------- SPEC NUM: [id number] RECD: 06/04/24 STATUS: HIRO KEITA NUM: [id number] JOSE L: 06/03/24 DR: Wing Wright, ENTERED: 06/04/[address] [facility] [address]: Liat,Lab SPEC TYPE: Cytology DEPT: RANDOLPH DANG ENTERED BY: [id number] RECV BY: [id number] ORDERED: HE/3, Gross/Micro L4, CK5 6, TTF1, Cyto Prepstain, p40, PAPSTN ORDERED: HE/3, Gross/Micro L4, CK5 6, TTF1, Cyto Prepstain, p40, PAPSTN Pathological Diagnosis Left lower lobe of lung bronchial lavage cytology: -Occasional acute and chronic inflammatory cells -Large clusters of degenerated respiratory epithelial cells including rare degenerated atypical epithelial cells (See micro-) Clinical Information Not provided Gross Description Received fresh is 12 ml pink slightly hazy mucinous unfixed fluid for cytology said to have been obtained as Left Lower Lobe Lavage. ThinPrep and cell block preparations are prepared for microscopic examination. (CC/nh) Microscopic Description -Microscopic examination is performed showing a few admixed PMN, lymphocytes, histiocytes, and occasional respiratory epithelial cells in the Thin prep smear, including bronchial epithelial cells and squamous cells. Occasional degenerated epithelial cells with rare degenerated atypia are also identified -Cell block section also showing similar findings including 2 large clusters of markedly -------- Specimen: [id number] Received: 06/04/24 Status: HIRO Keita Num: [id number] Spec Type: Cytology Subm Dr: Wing Wright DO Tissues: A BRONWASH (LLL LAVAGE) Procedures: HE/3, Gross/Micro L4, CK5 6, TTF1, Cyto Prepstain, p40, PAPSTN -------- Patient: Carmen Kilgore V [id number] (Continued) -------- Specimen: [id number] Received: 06/04/24 (Continued) Microscopic Description (Continued) Signed (signature on file) Urvashi Hook MD 06/06/24 1023 -------- Specimen: [id number] Received: 06/04/24 Status: HIRO Keita Num: [id number] Spec Type: Cytology Subm Dr: Wing Wright DO Tissues: A BRONWASH (LLL LAVAGE) Procedures: HE/3, Gross/Micro L4, CK5 6, TTF1, Cyto Prepstain, p40, PAPSTN -------- Patient: Carmen Kilgore V [id number] (Continued) -------- Specimen: [id number] Received: 06/04/24 (Continued) Microscopic Description (Continued) degenerated epithelial cells which are positive for CK5/6, and occasionally also for p40, and are negative for TTF-1 -Immuno controls are reactive -The overall findings are compatible with sampling of the degenerated epithelial lesion, suspicious for degenerated squamous epithelial cell of unclear nature or significance, including possibility of severe ulceration of the bronchial mucosa, or sampling of the degenerated atypical squamous lesion, including squamous dysplasia or higher grade lesion, therefore also requiring continuous clinical correlation and patient follow up assessment as appropriate CPT Codes 58454 44672 [id number] -------- -------- Specimen: [id number] Received: 06/04/24 Status: HIRO Keita Num: [id number] Spec Type: Cytology Subm Dr: Wing Wright DO Tissues: A BRONWASH (LLL LAVAGE) Procedures: HE/3, Gross/Micro L4, CK5 6, TTF1, Cyto Prepstain, p40, PAPSTN -------- Patient: SergeyCarmen V [id number] (Continued) -------- Signed (sign (more content not included)... Normal [facility] Heart and Vascular Office/Cl inic Noteon 11-16-2023 [...] artery disease) (I25.10: Atherosclerotic heart disease of [place] coronary artery without angina pectoris) The patient [...] 11/16/2023 Family History Heart disease: Father. Normal [facility] Comment on above: Result Comment: Elec tronically Signed By: Karon ANTHONY, Adriel De León\.br\Date and Time Signed: 11/16/23 13:09 EDT Urinalysis - AUTOMATEDon Appearance (U) cloudy [employer]opsec Other Bilirubin Ql (U) Negative Agrivida Other Color (U) yellow [employer] Other Glucose Ql (U) Negative [employer] Other Hemoglobin Ql (U) Weixinhai Other Ketones Ql (U) Negative [employer] Other Leukocyte esterase Test strip Ql (U) TXCOM Other Nitrite Ql (U) Negative [employer]op[employer] Other pH (U) 6.5 [pH] [employer] Other Protein Ql (U) Negative [employer] Other Specific gravity (U) [Rel density] 1.025 [employer] Other Urobilinogen (U) [Mass/Vol] 0.2 mg/dL [employer] Other Urinalysis - AUTOMATED [employer] Other Urine Cultureon 02-21-2023 Bacteria identified Cx Nom (U) Lawding[employer] Other LIPID PROFILEon 02-09-2022 CHOL-HDL RATIO NORM SEE BELOW Normal [facility] Comment on above: Result Comment: 3.3 - 4.4 LOW RISK 4.4 - 7.1 AVERAGE RISK 7.1 - 11.0 MODERATE RISK >11.0 HIGH RISK Performed By: #### L IPID #### [facility] [address] [address] [address] Carolynn Hook Cholesterol [Mass/Vol] 149 mg/dL Normal <=200 [facility] Comment on above: Performed By: #### L IPID #### [facility] [address] [address] [address] Carolynn Hook Cholesterol in HDL [Mass/Vol] 50 mg/dL Normal 40-60 [facility] Comment on above: Performed By: #### L IPID #### [facility] [address] [address] [address] Carolynn Hook Cholesterol in LDL [Mass/Vol] 57.6 mg/dL Normal [facility] Comment on above: Performed By: #### L IPID #### [facility] [address] [address] [address] Carolynn Hook Cholesterol.total/C holesterol in HDL [Mass ratio] 3.0 {ratio} Normal [facility] Comment on above: Performed By: #### L IPID #### [facility] [address] [address] [address] Carolynn Hook HDL NORMAL > or = 60 mg/dl - LO W CARDIOVASCULAR RISK <40 mg/dl - HIGH CARDIOVASCULAR RISK Normal [facility] Comment on above: Performed By: #### L IPID #### [facility] [address] [address] [address] Carolynn Hook LDL CALC NORMAL SEE BELOW Normal [facility] Comment on above: Result Comment: <100 mg/dl OPTIMAL 100 - 129 mg/dl NEAR OR ABOVE OPTIMAL 130 - 159 mg/dl BORDERLINE HIGH 160 - 189 mg/dl HIGH >190 mg/dl VERY HIGH Performed By: #### L IPID #### [facility] [address] [address] [address] Carolynn Hook Triglyceride [Mass/Vol] 207 mg/dL Critically high <=150 [facility] Comment on above: Performed By: #### L IPID #### [facility] [address] [address] [address] Carolynn Hook VLDL CALC 41.4 mg/dL Normal [facility] Comment on above: Performed By: #### L IPID #### [facility] [address] [address] [address] CHEST WO CONon [...] AWAIS MEHTA Date: 2022-01-17 07:19 Normal [facility] MG MAMM SCREEN 3D SADA CADon 01-02-2022 MG MAMM SCREEN 3D SADA CAD Patient: CARMEN KILGORE V. Exam Date: 01/02/2022 : 1965 Gender:F Ordering : KACEY RIVERA [facility] Admission #: [id number] Family : Order #: [id number] CLICK HERE TO VIEW EXAM RADIOLOGY REPORT [...] lung cancer at age 44. LOCATION: [facility] BREAST COMPOSITION: Scattered areas fibroglandular density. [...] MD on 01/02/2022 at 13:06 Normal [facility] INSULINon 11-01-2021 Insulin 12.8 uIU/mL Normal 2.6-24.9 [facility] Comment on above: Performed By: #### I NSULIN #### [facility] [address] [address] [address] Carolynn Hook T4, T3U, FTI LABCORPon 11-01 Free Thyroxine Index 2.4 Normal 1.2-4.9 [facility] Comment on above: Performed By: #### T HYLC #### [facility] [address] [address] [address] Carolynn Hook T3 Uptake 25 % Normal 24-39 [facility] Comment on above: Performed By: #### T HYLC #### [facility] [address] [place] [address] Dr. Carolynn Hook T4 [Mass/Vol] 9.5 ug/dL Normal 4.5-12.0 [facility] Comment on above: Performed By: #### T HYLC #### [facility] [address] [place] [address] Dr. Carolynn Hook CBC AUTO DIFFon 10-31-2021 BASO # 0.0 103/ul Normal 0.0-0.1 [facility] Comment on above: Performed By: #### C BC #### [facility] [address] [place] [address] Dr. Carolynn Hook Basophils/100 WBC (Bld) 0.5 % Normal 0.2-2.0 [facility] Comment on above: Performed By: #### C BC #### [facility] [address] [place] [address] Dr. Carolynn Hook EO # 0.1 103/ul Normal 0.0-0.7 [facility] Comment on above: Performed By: #### C BC #### [facility] [address] [place] [address] Dr. Carolynn Hook Eosinophils/100 WBC (Bld) 2.1 % Normal 0.9-7.0 [facility] Comment on above: Performed By: #### C BC #### [facility] [address] [place] [address] Dr. Carolynn Hook Erythrocyte distribution width (RBC) [Ratio] 12.8 % Normal 11.0-15.0 [facility] Comment on above: Performed By: #### C BC #### [facility] [address] [place] [address] Dr. Carolynn Hook Hematocrit (Bld) [Volume fraction] 49.3 % Critically high 36.0-48.0 [facility] Comment on above: Performed By: #### C BC #### [facility] [address] [place] [address] Dr. Carolynn Hook Hemoglobin (Bld) [Mass/Vol] 16.7 g/dL Critically high 12.0-16.0 [facility] Comment on above: Performed By: #### C BC #### [facility] [address] [place] [address] Dr. Carolynn Hook IG # 0.07 10e3/ul Critically high 0.00-0.03 [facility] Comment on above: Performed By: #### C BC #### [facility] [address] [place] [address] Dr. Carolynn Hook IG % 1.3 % Critically high 0.0-0.5 [facility] Comment on above: Performed By: #### C BC #### [facility] [address] [place] [address] Dr. Carolynn Hook LYMPH # 1.5 103/ul Normal 1.2-3.8 [facility] Comment on above: Performed By: #### C BC #### [facility] [address] [place] [address] Dr. Carolynn Hook Lymphocytes/100 WBC (Bld) 27.0 % Normal 20.5-60.0 [facility] Comment on above: Performed By: #### C BC #### [facility] [address] [place] [address] Dr. Carolynn Hook MANUAL DIFF REQ NO Normal [facility] Comment on above: Performed By: #### C BC #### [facility] [address] [place] [address] Dr. Carolynn Hook MCH (RBC) [Entitic mass] 31.9 pg Normal 26.7-34.0 [facility] Comment on above: Performed By: #### C BC #### [facility] [address] [place] [address] Dr. Carolynn Hook MCHC (RBC) [Mass/Vol] 33.9 g/dL Normal 29.9-35.2 [facility] Comment on above: Performed By: #### C BC #### [facility] [address] [place] [address] Dr. Carolynn Hook MCV (RBC) [Entitic vol] 94.1 fL Normal 81.0-99.0 [facility] Comment on above: Performed By: #### C BC #### [facility] [address] [place] [address] Dr. Carolynn Hook MONO # 0.5 103/ul Normal 0.3-0.8 [facility] Comment on above: Performed By: #### C BC #### [facility] [address] [place] [address] Dr. Carolynn Hook Monocytes/100 WBC (Bld) 8.2 % Normal 1.7-12.0 [facility] Comment on above: Performed By: #### C BC #### [facility] [address] [place] [address] Dr. Carolynn Hook NEUT # 3.4 103/ul Normal 1.4-6.5 [facility] Comment on above: Performed By: #### C BC #### [facility] [address] [place] [address] Dr. Carolynn Hook Neutrophils/100 WBC (Bld) 60.9 % Normal 43.0-75.0 [facility] Comment on above: Performed By: #### C BC #### [facility] [address] [place] [address] Dr. Carolynn Hook Platelet mean volume (Bld) [Entitic vol] 8.6 fL Critically low 9.5-13.5 [facility] Comment on above: Performed By: #### C BC #### [facility] [address] [place] [address] Dr. Carolynn Hook PLT 239 103/ul Normal 150-450 [facility] Comment on above: Performed By: #### C BC #### [facility] [address] [place] [address] Dr. Carolynn Hook RBC 5.24 106/ul Normal 4.20-5.40 [facility] Comment on above: Performed By: #### C BC #### [facility] [address] [place] [address] Dr. Carolynn Hook WBC 5.6 103/ul Normal 4.0-11.0 [facility] Comment on above: Performed By: #### C BC #### [facility] [address] [address] [address] Carolynn Hook GLYCOHEMOGLOBIN A1Con 2021 ADA RECOMMENDATION SEE BELOW Normal [facility] Comment on above: Result Comment: ADA RECOMMENDED LIMIT 4.0 - 6.0 ADA THERAPEUTIC TARGET < 7.0 ACTION SUGGESTED > 7.0 Performed By: #### A 1C #### [facility] [address] [address] [address] Carolynn Hook Glucose [Mass/Vol] 108 mg/dL Critically high 74-106 [facility] Comment on above: Performed By: #### A 1C #### [facility] [address] [address] [address] Carolynn Hook Performed By: #### T SH, CMP, LIPID ####[facility] [address] [address]Dr. Carolynn Hook HbA1c (Bld) [Mass fraction] 5.4 % Normal 4.5-6.2 [facility] Comment on above: Performed By: #### A 1C #### [facility] [address] [address] [address] Carolynn Hook IRONon 10-31-2021 Iron [Mass/Vol] 93.0 ug/dL Normal 50.0-170.0 [facility] Comment on above: Performed By: #### I STEVEN #### [facility] [address] [address] [address] Carolynn Hook LIPID PROFILEon 10-31-2021 CHOL-HDL RATIO NORM SEE BELOW Normal [facility] Comment on above: Result Comment: 3.3 - 4.4 LOW RISK 4.4 - 7.1 AVERAGE RISK 7.1 - 11.0 MODERATE RISK >11.0 HIGH RISK Performed By: #### T SH, CMP, LIPID ####[facility] [address] [address]Dr. Carolynn Hook Cholesterol [Mass/Vol] 314 mg/dL Critically high <=200 [facility] Comment on above: Performed By: #### T SH, CMP, LIPID ####[facility] [address] [place], [place] [address]Yl. Cecenae Hook Cholesterol in HDL [Mass/Vol] 65 mg/dL Critically high 40-60 [facility] Comment on above: Performed By: #### T SH, CMP, LIPID ####[facility] [address] [place], [place] [address]Tx. Carolynn Hook Cholesterol in LDL [Mass/Vol] 194.6 mg/dL Normal [facility] Comment on above: Performed By: #### T SH, CMP, LIPID ####[facility] [address] [place], [place] [address]Ko. Carolynn Hook Cholesterol.total/C holesterol in HDL [Mass ratio] 4.8 {ratio} Normal [facility] Comment on above: Performed By: #### T MIKI, CMP, LIPID ####[facility] [address] [id number] Carolynn Hook HDL NORMAL > or = 60 mg/dl - LO W CARDIOVASCULAR RISK <40 mg/dl - HIGH CARDIOVASCULAR RISK Normal [facility] Comment on above: Performed By: #### T MIKI, CMP, LIPID ####[facility] [address] [id number] Carolynn Hook LDL CALC NORMAL SEE BELOW Normal [facility] Comment on above: Result Comment: <100 mg/dl OPTIMAL 100 - 129 mg/dl NEAR OR ABOVE OPTIMAL 130 - 159 mg/dl BORDERLINE HIGH 160 - 189 mg/dl HIGH >190 mg/dl VERY HIGH Performed By: #### T MIKI, CMP, LIPID ####[facility] [address] [place], [place] [address]Ig. Carolynn Hook Triglyceride [Mass/Vol] 272 mg/dL Critically high <=150 [facility] Comment on above: Performed By: #### T SH, CMP, LIPID ####[facility] [address] [address]Dr[address] Carolynn Hook VLDL CALC 54.4 mg/dL Normal [facility] Comment on above: Performed By: #### T SH, CMP, LIPID ####[facility] [address] [id number][address] Carolynn Hook PROF 14(COMP METB)on 022 Albumin [Mass/Vol] 3.9 g/dL Normal 3.4-5.0 [facility] Comment on above: Performed By: #### T SH, CMP, LIPID ####[facility] [address] [address]Dr. Carolynn Hook Albumin/Globulin [Mass ratio] 1.0 {ratio} Normal [facility] Comment on above: Performed By: #### T SH, CMP, LIPID ####[facility] [address] [address]Dr. Carolynn Hook ALP [Catalytic activity/Vol] 88 U/L Normal 46-116 [facility] Comment on above: Performed By: #### T SH, CMP, LIPID ####[facility] [address] [address]Dr. Carolynn Hook ALT [Catalytic activity/Vol] 23 U/L Normal 14-59 [facility] Comment on above: Performed By: #### T SH, CMP, LIPID ####[facility] [address] [address]Dr. Carolynn Hook Anion gap [Moles/Vol] 11.5 mmol/L Normal [facility] Comment on above: Performed By: #### T SH, CMP, LIPID ####[facility] [address] [address]Dr. Carolynn Hook AST [Catalytic activity/Vol] 14 U/L Critically low 15-37 [facility] Comment on above: Performed By: #### T SH, CMP, LIPID ####[facility] [address] [place] [address]Dr. Carolynn Hook Bilirubin [Mass/Vol] 0.6 mg/dL Normal 0.2-1.0 [facility] Comment on above: Performed By: #### T SH, CMP, LIPID ####[facility] [address]wk[address] [place] [address]Dr. Carolynn Hook Calcium [Mass/Vol] 9.7 mg/dL Normal 8.5-10.1 [facility] Comment on above: Performed By: #### T SH, CMP, LIPID ####[facility] Ncwftwh[address]of87[address] [place] [id number]. Carolynn Hook Chloride [Moles/Vol] 100 mmol/L Normal 98-107 [facility] Comment on above: Performed By: #### T SH, CMP, LIPID ####[facility] Novhrfnyrf9267 [place] [id number]. Carolynn Hook CO2 [Moles/Vol] 29.9 mmol/L Normal 21.0-32.0 [facility] Comment on above: Performed By: #### T SH, CMP, LIPID ####[facility] Clhmxrovuf6509 [place] [address]Dr. Carolynn Hook Creatinine [Mass/Vol] 0.59 mg/dL Normal 0.55-1.02 [facility] Comment on above: Performed By: #### T SH, CMP, LIPID ####[facility] [address] [place], [place] [address]Dr. Carolynn Hook EGFR-AF MEXICAN >60 Normal >=60 [facility] Comment on above: Performed By: #### T SH, CMP, LIPID ####[facility] [address] [place], [place] [address]Dr. Carolynn Hook EGFR-NON AF MEXICAN >60 Normal >=60 [facility] Comment on above: Performed By: #### T SH, CMP, LIPID ####[facility] Baymdvaple3891 [place] [address]Dr. Carolynn Hook Globulin (S) [Mass/Vol] 3.9 g/dL Normal [facility] Comment on above: Performed By: #### T SH, CMP, LIPID ####[facility] [address]vom[address]of[address] [place] [address]Dr. Carolynn Hook Potassium [Moles/Vol] 4.4 mmol/L Normal 3.5-5.1 [facility] Comment on above: Performed By: #### T SH, CMP, LIPID ####[facility] Evsiajcnsy[address] [place] [address]Dr. Carolynn Hook Protein [Mass/Vol] 7.8 g/dL Normal 6.4-8.2 [facility] Comment on above: Performed By: #### T SH, CMP, LIPID ####[facility] Jfbuk[address]hmuk[address] [place] [id number]. Carolynn Hook Sodium [Moles/Vol] 137 mmol/L Normal 136-145 [facility] Comment on above: Performed By: #### T SH, CMP, LIPID ####[facility] Iiw[address]hucgl0410 [place] [id number]. Carolynn Hook Urea nitrogen [Mass/Vol] 14.0 mg/dL Normal 7.0-18.0 [facility] Comment on above: Performed By: #### T MIKI CMP, LIPID ####[facility] Ebs[address]ydqu[address] [place] [id number]. Carolynn Hook Urea nitrogen/Creatinine [Mass ratio] 23.7 mg/mg Normal [facility] Comment on above: Performed By: #### T MIKI, CMP, LIPID ####[facility] Keyz[address]uduj[address] [place] [id number]. Carolynn Hook TSHon 10-31-2021 TSH 1.273 uIU/mL Normal 0.358-3.740 [facility] Comment on above: Performed By: #### T MIKI CMP, LIPID ####[facility] Xx[address]kds24[address] [place] [id number]. Carolynn Hook HEMOGLOBINon 10-06-2021 Hemoglobin (Bld) [Mass/Vol] 15.7 g/dL Normal 12.0-16.0 [facility] Comment on above: Performed By: #### H GB #### [facility] [address] [place], [place] [address] LUNG CANCER SCREENINGon [...] by: JACKIE NGUYEN Date: 2021-07-25 13:27 Normal [facility] XR hand RT min 3V*on 022 XR hand RT min 3V* [facility] Other XR hand RT min 3V* [facility] Other XR hand RT min 3V* [address] [place] [address] [facility] Other XR hand RT min 3V* [place] [address] [facility] Other XR hand RT min 3V* XRay Report [facility] Other XR hand RT min 3V* Signed [facility] Other XR hand RT min 3V* Patient: Carmen Kilgore V MR#: [id number] [facility] Other XR hand RT min 3V* [id number] [facility] Other XR hand RT min 3V* : 1965 Acct:[id number] [facility] Other XR hand RT min 3V* Age/Sex: 56 / F ADM Date: 07/13/21 [facility] Other XR hand RT min 3V* Loc: XDUCLY Room: Type: REG CLI [facility] Other XR hand RT min 3V* Attending Dr: Kacey MCCALL [facility] Other XR hand RT min 3V* Ordering Provider: CAL Richter [facility] Other XR hand RT min 3V* Date of Service: 07/13/21 [facility] Other XR hand RT min 3V* XR/XR hand RT min 3V*: Right hand pain [facility] Other XR hand RT min 3V* Copies to: CAL Richter [facility] Other XR hand RT min 3V* RIGHT HAND - 3 views [facility] Other XR hand RT min 3V* COMPARISON: None [facility] Other XR hand RT min 3V* REASON FOR EXAM: Right hand pain for one day. No known injury. [facility] Other XR hand RT min 3V* FINDINGS: [facility] Other XR hand RT min 3V* No focal soft tissue abnormality. No radiopaque foreign body. No acute bony process. Minimal [facility] Other XR hand RT min 3V* degenerative change. No bony erosions. [facility] Other XR hand RT min 3V* XR/XR hand RT min 3V* [facility] Other XR hand RT min 3V* IMPRESSION: [facility] Other XR hand RT min 3V* MINIMAL DEGENERATIVE CHANGE. NO ACUTE BONY PROCESS. [facility] Other XR hand RT min 3V* Impression dictated by: Sky Bush Jr., D.OJada07/13/2021 10:36 AM [facility] Other XR hand RT min 3V* Dictation Location: [place] [address] [facility] Other XR hand RT min 3V* Transcribed By: PWS 07/13/21 1036 [facility] Other XR hand RT min 3V* Dictated By: Sky Bush Jr DO 07/13/21 1034 [facility] Other XR hand RT min 3V* Signed By: [facility] Other XR hand RT min 3V* 07/13/[address] [place] [address] [facility] Other Vital Signs Date Time Vital Sign Value Performing Clinician Jeff henson 06-19-2024 10:57-0400 Body mass index (BMI) [Ratio] 22.65 kg/m2 Tika Valentine MD Work Phone: [facility] 06-19-2024 10:57-0400 Body temperature 97.39 [degF] Tika Valentine MD Work Phone: [facility] 06-19-2024 10:57-0400 Body weight 58 kg Tika Valentine MD Work Phone: [facility] 06-19-2024 10:57-0400 Diastolic blood pressure 75 mm[Hg] Tika Valentine MD Work Phone: [facility] 06-19-2024 10:57-0400 Heart rate 86 /min Tika Valentine MD Work Phone: [facility] 06-19-2024 10:57-0400 Respiratory rate 16 /min Tika Valentine MD Work Phone: [facility] 04-10-2025 10:57-0400 SaO2% (BldA) [Mass fraction] 96 % Tika Valentine MD Work Phone: [facility] 06-19-2024 10:57-0400 Systolic blood pressure 111 mm[Hg] Tika Valentine MD Work Phone: [facility] 06-18-2024 13:12-0400 Blood Pressure Location Tristin Pickens [facility] 06-18-2024 13:12-0400 Diastolic blood pressure 80 mm[Hg] Tristin Pickens [facility] 06-18-2024 13:12-0400 Heart rate 93 /min Tristin Pickens [facility] 06-18-2024 13:12-0400 Respiratory rate 18 /min Tristin Pickens [facility] 06-18-2024 13:12-0400 SaO2% (BldA) [Mass fraction] 92 % Tristin Pickens [facility] 06-18-2024 13:12-0400 Systolic blood pressure 112 mm[Hg] Tristin Pickens [facility] 11-16-2023 12:45-0400 Diastolic blood pressure 78 mm[Hg] Adriel Kirnus [facility] 11-16-2023 12:45-0400 Heart rate 104 /min Adriel Kirnus [facility] 11-16-2023 12:45-0400 Respiratory rate 18 /min Adriel Kirnus [facility] 11-16-2023 12:45-0400 SaO2% (BldA) [Mass fraction] 96 % Adriel Kirnus [facility] 11-16-2023 12:45-0400 Systolic blood pressure 122 mm[Hg] Adriel Kirnus [facility] 05-28-2023 08:31-0400 Blood Pressure Location Jacky Thomson [facility] 05-28-2023 08:31-0400 Diastolic blood pressure 88 mm[Hg] Jacky Thomson [facility] 05-28-2023 08:31-0400 Heart rate 80 /min Jacky Thomson [facility] 05-28-2023 08:31-0400 SaO2% (BldA) [Mass fraction] 94 % Jacky Thomson [facility] 05-28-2023 08:31-0400 Systolic blood pressure 120 mm[Hg] Jacky Thomson [facility] 02-21-2023 12:10-0500 Body height 160.02 cm Kacey Stephanie Other [facility] Other 02-21-2023 12:10-0500 Body mass index (BMI) [Ratio] 23.56 kg/m2 Kacey Stephanie Other [facility] Other 02-21-2023 12:10-0500 Body temperature 98.2 [degF] Kacey Stephanie Other [facility] Other 02-21-2023 12:10-0500 Body weight 60.33 kg Kacey Stephanie Other [facility] Other 02-21-2023 12:10-0500 Diastolic blood pressure 81 mm[Hg] Kacey Stephanie Other [facility] Other 02-21-2023 12:10-0500 Respiratory rate 18 /min Kacey Stephanie Other [facility] Other 02-21-2023 12:10-0500 SaO2% (BldA) [Mass fraction] 94 % Kacey Brown Other [facility] Other 02-21-2023 12:10-0500 Systolic blood pressure 120 mm[Hg] Kacey Brown Other [facility] Other 06-15-2022 12:50-0400 Blood Pressure Location Olga VAIL [facility] 06-15-2022 12:50-0400 Diastolic blood pressure 80 mm[Hg] Olga VAIL [facility] 06-15-2022 12:50-0400 Heart rate 93 /min Olga VAIL [facility] 06-15-2022 12:50-0400 SaO2% (BldA) [Mass fraction] 93 % Olga VAIL [facility] 06-15-2022 12:50-0400 Systolic blood pressure 136 mm[Hg] Olga VAIL [facility] 11-18-2021 13:55-0400 Diastolic blood pressure 83 mm[Hg] Jacky Thomson [facility] 11-18-2021 13:55-0400 Mean blood pressure 98 mm[Hg] Jacky Thomson [facility] 11-18-2021 13:55-0400 Systolic blood pressure 128 mm[Hg] Jacky Thomson [facility] 11-18-2021 13:45-0400 Blood Pressure Location Jacky Thomson [facility] 11-18-2021 13:45-0400 Diastolic blood pressure 110 mm[Hg] Jacky Thomson [facility] 11-18-2021 13:45-0400 Heart rate 87 /min Jacky Thomson [facility] 11-18-2021 13:45-0400 Respiratory rate 18 /min Jacky Thomson [facility] 11-18-2021 13:45-0400 SaO2% (BldA) [Mass fraction] 100 % Jacky Thomson [facility] 11-18-2021 13:45-0400 Systolic blood pressure 153 mm[Hg] Jacky Thomson [facility] 07-13-2021 10:50-0400 Body height 160.02 cm Kacey Stephanie Other [facility] Other 07-13-2021 10:50-0400 Body mass index (BMI) [Ratio] 23.56 kg/m2 Kacey Stephanie Other [facility] Other 07-13-2021 10:50-0400 Body temperature 97.7 [degF] Kacey Stephanie Other [facility] Other 07-13-2021 10:50-0400 Body weight 60.33 kg Kacey Stephanie Other [facility] Other 07-13-2021 10:50-0400 Diastolic blood pressure 95 mm[Hg] Kacey Stephanie Other [facility] Other 07-13-2021 10:50-0400 Respiratory rate 18 /min Kacey Stephanie Other [facility] Other 07-13-2021 10:50-0400 SaO2% (BldA) [Mass fraction] 96 % Kacey Stephanie Other [facility] Other 07-13-2021 10:50-0400 Systolic blood pressure 150 mm[Hg] Kacey Brown Other [facility] Other Encounters Encounter Date Encounter Type Care Provider Facility Start: 06-20-2024 End: 06-20-2024 Telephone encounter Tika Valentine MD Work Phone: [facility] Start: 06-19-2024 End: 06-19-2024 ambulatory WING WRIGHT Facility:[facility] Start: 06-19-2024 End: 06-19-2024 Office outpatient new 60 minutes Tika Valentine MD Work Phone: Hematology/Oncology Comment on above: Malignant neoplasm o f lower lobe of left lung (HCC) (Primary Dx) Start: 06-18-2024 End: 06-18-2024 Chart abstracting Tika Valentine MD Work Phone: Hematology/Oncology Start: 06-18-2024 End: 06-18-2024 ambulatory Tristin Pickens Facility:[facility] Start: 06-18-2024 End: 06-18-2024 Patient encounter procedure Tristin Pickens [facility] Start: 06-03-2024 End: 06-03-2024 ambulatory Wing Fagan [facility] Work Phone: Start: 06-03-2024 End: 06-03-2024 Departed Referred Wing Wright DO Work Phone: [facility] Start: 11-16-2023 End: 11-16-2023 ambulatory XXXX NONE Facility:[facility] Start: 11-16-2023 End: 11-16-2023 Patient encounter procedure Adriel Brantley [facility] Start: 05-28-2023 End: 05-28-2023 Patient encounter procedure Jacky Thomson [facility] Start: 02-21-2023 Office outpatient visit 15 minutes Kacey Brown [facility] Start: 02-21-2023 End: 02-21-2023 ambulatory MD Mckayla Givens Work Phone: [facility] Other Start: 02-21-2023 End: 02-21-2023 Departed Referred MD Mckayla Givens Work Phone: [facility] [place] Work Phone: Start: 06-13-2022 End: 06-15-2022 Patient encounter procedure Olga VAIL [facility] Start: 02-11-2022 Encounter for genera l adult medical examination without abnormal findings KACEY RIVERA [facility] Start: 02-09-2022 End: 02-10-2022 ambulatory KACEY RIVERA Facility:[facility] Start: 02-09-2022 End: 02-10-2022 Encounter for general adult medical examination without abnormal findings KACEY RIVERA Facility:[facility] Start: 01-16-2022 End: 01-17-2022 ambulatory KACEY RIVERA Facility:[facility] Start: 01-02-2022 End: 01-03-2022 ambulatory KACEY RIVERA Facility:[facility] Start: 11-18-2021 End: 11-18-2021 Patient encounter procedure Jacky Thomson [facility] Start: 10-31-2021 End: 11-01-2021 ambulatory KACEY RIVERA Facility:[facility] Start: 10-06-2021 End: 10-07-2021 ambulatory WING WRIGHT Facility:[facility] Start: 07-25-2021 End: 07-26-2021 ambulatory [facility] Facility:[facility] Start: 07-13-2021 End: 07-13-2021 ambulatory Kacey Brown Other [facility] Other Start: 07-13-2021 Office outpatient visit 15 minutes Kacey Brown [facility] Start: 04-07-2021 End: 05-04-2021 [...] Treatment Date Care Activity Detail Author Start: 2039 RSV Vaccine (1 - 1-d ose 75+ series) RSV Vaccine (1 - 1-dose 75+ series) [facility] Start: 06-20-2027 Diabetes Screening Diabetes Screenin g [facility] Start: 06-19-2025 BP Controlled (<130/80) BP Controlle d (<130/80) [facility] Start: 07-10-2024 End: 07-10-2024 Follow-up encounter 07/10/2024 2:00 PM EDT Visit (SP) Office Hematology/Oncology [address] [place] [address] [place] [address] Tika Valentine MD [address] [place] [address] Follow up after MRI and pet scan Hematology/Oncology Comment on above: Follow up after MRI and pet scan Start: 06-26-2024 End: 07-19-2025 MR Brain WO and W contrast IV MRI BRAIN WO/W IVCON Radiology Routine Malignant neoplasm of lower lobe of left lung (HCC) Expected: 06/26/2024 (Approximate), Expires: 07/19/2025 [facility] Work Phone: Comment on above: Expected: 06/26/2024 (Approximate), Expires: 07/19/2025 Start: 06-19-2024 End: 06-19-2024 ambulatory 06/19/2024 11:00 AM EDT Visit (SP) Office Hematology/Oncology [address] [place] [address] Tika Valentine MD [address] [place] [address] [place] [address] Wright DX: Newly dx of left lung squamous cell carcinoma Hematology/Oncology Comment on above: Ref by Dr Wright DX: Newly dx of left lung squamous cell carcinoma Start: 11-11-2023 Covid-19 Vaccine () Covid-19 Vaccine ( season) [facility] Start: 11-11-2023 Covid-19 Vaccine ( season) Covid-19 Vaccine () [facility] Start: 11-11-2023 Influenza vaccination Influenza Vacc ine (#1) [facility] Start: 02-21-2023 Bacteria identified in Urine by Culture [facility] Start: 02-11-2018 Diabetes Screening Diabetes Screenin g [facility] Start: 02-12-2016 Pneumococcal Vaccine : 50+ (2 of 2 - PCV) Pneumococcal Vaccine: 50+ (2 of 2 - PCV) [facility] Start: 2014 Screening for malign ant neoplasm of lung Lung Cancer Screening [facility] Start: 2014 Shingrix Vaccine (1 of 2) Shingrix Vaccine (1 of 2) [facility] Start: 2009 Lipid panel Lipid Screening [facility] Start: 2009 Screening for malign ant neoplasm of colon [facility] Start: 2004 Screening for malign ant neoplasm of breast Mammogram Screening [facility] Start: 1985 Screening for malign ant neoplasm of cervix Cervical Cancer Screening [facility] Start: 1983 Urine microalbumin profile DTaP,Tdap,Td Vaccine (1 - Tdap) [facility] Start: 1982 Annual PCP Team Outreach Manager kip Disease Visit Annual PCP Team Chronic Disease Visit [facility] Start: 1982 Anxiety Screening Anxiety Screening [facility] Start: 1982 Depression Screening Depression Scre markell [facility] Start: 1982 Hepatitis B surface antibody level LDL Cholesterol [facility] Start: 1982 Hepatitis C screening Hepatitis C Sc kim [facility] Start: 1982 HIV screening HIV Screening [facility] Immunizations Immunization Date Immunization Notes Care Provider Fa xander 01-13-2020 influenza virus vaccine, unspecified formulation Tika Valentine MD Work Phone: [facility] 02-11-2015 influenza, injectabl e, quadrivalent, preservative free Tika Valentine MD Work Phone: [facility] 02-11-2015 pneumococcal polysaccharide vaccine, 23 valent Tika Valentine MD Work Phone: [facility] 02-11-2015 influenza virus vaccine, unspecified formulation Tika Valentine MD Work Phone: [facility] Payers Date Payer Category Payer Self-pay [id number] 2021 Medicare [id number] 2015 Private Health Insurance [id number] 2013 Medicare [id number] 1964 Unknown [id number] 2.16.84 [id number] 1964 Unknown [id number] 2.16.84 [id number] 1964 Unknown [id number] 2.16.84 [id number] 1964 Unknown [id number] 2.16.84 [id number] 1964 Unknown [id number] 2.16.84 [id number] 1964 Unknown [id number] 2.16.84 [id number] 1964 Unknown [id number] 2.16.84 [id number] 1964 Unknown [id number] 2.16.84 [id number] 1964 Unknown [id number] 2.16.8 [id number] 1964 Unknown [id number] 2.16.8 [id number] 1959 Medicare [id number] 2.1 [id number] 1959 Private Health Insurance [id number] Unknown [id number] 2.16.8 [id number] Social History Date Type Detail Facility Start: 06-18-2024 End: 06-19-2024 Sex Assigned At [facility] Other Tobacco smoking status No Smokin g Status Entered [facility] Start: 06-15-2022 End: 06-18-2024 Tobacco smoking status Heavy tobacco smoker (finding) [facility] Start: 12-24-2019 End: 12-24-2019 Tobacco smoking status NHIS Smoker (finding) [facility] Start: 1965 Sex Assigned At Female F [facility] Tobacco smoking status Never [facility] Start: 05-31-2018 End: 06-04-2024 Sex Female (finding) [facility] Start: 06-18-2024 Tobacco smoking stat us MOIS Smokes tobacco daily [facility] History of tobacco use Cigarette Smoker C [facility] Start: 06-18-2024 End: 06-19-2024 Cigarettes smoked current (pack per day) - Reported 1 [facility] History of tobacco use Passive smoker [facility] Start: 06-18-2024 Tobacco use and exposure Smokeless tobacco non-user [facility] Start: 06-18-2024 Alcoholic beverage intake Current drinker of alcohol (finding) [facility] Start: 01-25-2015 Alcohol Comment rare Sonia [facility] Start: 1965 Sex assigned at Not on file C [facility] Sexual Orientation [facility] Medical Equipment Procedure Code Equipment Code Equipment Origin al Text Equipment Identifier Dates Spinal fixation plate, non-bioabsorbable ()[id number] FDA Start: 12-22-2019 Spinal fixation plate, non-bioabsorbable ()[id number] FDA Start: 12-22-2019 Intervertebral-b donna internal spinal fixation system ()[id number] FDA Start: 12-22-2019 Intervertebral-b donna internal spinal fixation system ()[id number] FDA Start: 12-22-2019 Functional Status Date Assessment Result Facility 06-18-2024 Functional Status N/A [facility] 11-16-2023 Functional Status N/A [facility] 05-28-2023 Functional Status No [facility] 06-15-2022 Functional Status No [facility] 11-18-2021 Functional Status N/A [facility] 02-11-2015 Are you deaf, or do you have serious difficulty hearing No 02/11/2015 11:54 AM Antoinette SmithRn)(Hist), RN No [facility] 02-11-2015 Are you blind, or do you have serious difficulty seeing, even when wearing glasses No 02/11/2015 11:54 AM Antoinette SmithRn)(Hist), RN No [facility] 02-11-2015 Do you have serious difficulty walking or climbing stairs No 02/11/2015 11:54 AM Antoinette SmithRn)(Hist), RN No [facility] 02-11-2015 Do you have difficul ty dressing or bathing No 02/11/2015 11:54 AM Antoinette SmithRn)(Hist), RN No [facility] 02-11-2015 Because of a physica l, mental, or emotional condition, do you have difficulty doing errands alone such as visiting a physician's office or shopping No 02/11/2015 11:54 AM Antoinette Smith (Rn)(Hist), RN No [facility] Mental Status Date Assessment Result Facility 02-11-2015 Because of a physica l, mental, or emotional condition, do you have serious difficulty concentrating, remembering, or making decisions No 02/11/2015 11:54 AM Antoinette Smith (Rn)(Hist), RN No [facility] Clinical Notes 05-17-2021 to 06-20-2024 Telephone Encounter - Daniel Fuentes - 06/20/2024 9:20 AM EDTTelephone Encounter - Daniel Fuentes - 06/20/2024 9:20 AM EDTPatient InstructionsTika Valentine MD - 06/19/2024 11:00 AM EDT Note Date & Type Note Facility 06-20-2024 Telephone encount er Note Patient is scheduled for her brain MRI on 06/30/24 at 2:00pm at [facility]. Patient is aware. [facility] 06-20-2024 Miscellaneous Notes Formattin g of this note might be different from the original. Patient is scheduled for her brain MRI on 06/30/24 at 2:00pm at [facility]. Patient is aware. documented in this encounter [facility] 06-19-2024 Instructions Tika Valentine MD - 06/19/2024 11:14 AM EDT Ordered MRI brain Labs today PET scan scheduled on 06/30/24 at [facility]. F/u in 2 weeks documented in this encounter [facility] 06-19-2024 History of Presen t illness Narrative Images from the original note were not included. PATIENT NAME: Carmen Kilgore CLINIC NO.: [id number] ATTENDING PHYSICIAN: Tika Valentine MD DATE OF SERVICE: June 19, [address] Wing Wright [address] [address] thank you for referring Carmen Kilgore for an opinion regarding Lung cancer . CHIEF COMPLAINT: Lung cancer HPI: Carmen Kilgore is a 59 year old year old female with PMH of CAD s/p PCI, HTN, DLD, COPD referred to us for lung cancer. CT chest (05/29/24)- Bronchoscopy (06/03/24)- Smoked 1 pk/day for many yrs. Occasional alcohol. On disability. C/o left shoulder pain. . PET scan scheduled on 06/30/24 at [facility]. PFTs scheduled on 07/02/24. Lost 5lbs. Current Outpatient Medications Medication Sig atorvastatin (LIPITOR) 40 mg tablet Take 1 tablet by mouth once daily. BEVESPI AEROSPHERE 9-4.8 mcg Inhale 2 puffs as instructed two times a day. lisinopril (ZESTRIL) 30 mg tablet Take 1 tablet by mouth once daily. isosorbide mononitrate ER (IMDUR) 30 mg 24 hr tablet Take 30 mg by mouth every morning. PULMICORT FLEXHALER 180 mcg/actuation aepb Inhale 2 puffs as instructed two times a day. rosuvastatin (CRESTOR) 40 mg tablet Take 40 mg by mouth daily at bedtime. amLODIPine (NORVASC) 10 mg tablet Take 1 tablet by mouth once daily. clopidogrel (PLAVIX) 75 mg tablet Take 1 tablet by mouth once daily. aspirin, enteric coated (ADULT LOW DOSE ASPIRIN) 81 mg EC tablet Take 1 tablet by mouth once daily. nitroglycerin sublingual (NITROSTAT) 0.4 mg SL tablet Dissolve 1 tablet under the tongue every 5 minutes as needed. VENTOLIN HFA 90 mcg/actuation inhaler Inhale 1 Puff as instructed as needed. No current facility-administered medications for this visit. ALLERGIES Allergen Reactions Dilaudid [Hydromorp* Vomiting PAST MEDICAL HISTORY Diagnosis Date Allergic rhinitis CAD (coronary artery disease) Centrilobular emphysema (HCC) Cervical myelopathy (HCC) COPD (chronic obstructive pulmonary disease) (HCC) GERD (gastroesophageal reflux disease) HTN Hyperlipidemia PAD (peripheral artery disease) Squamous cell carcinoma of lung, left (HCC) PAST SURGICAL HISTORY Procedure Laterality Date CARDIAC CATH 02/01/2015 80-90% mid RCA in-stent restenosis. 60% mid LAD stenosis. Patent mid LCX stenosis. CARDIAC CATH 02/10/2015 Balloon angioplasty of mid RCA in-stent restenosis. No stent CC PCI CORONARY INTERVENT 01/11/2004 Distal RCA Taxus 3.0X20 mm. CC PCI CORONARY INTERVENT 12/29/2010 Distal RCA Xience 3.5X28 mm. Proximal RCA Xience 4.0X28 mm. Mid RCA Xience 3.5X28 mm. CC PCI CORONARY INTERVENT 03/28/2000 RCA 4.0X18 mm. CC PCI CORONARY INTERVENT 01/26/2011 LCX Xience 2.25X18 mm. LIG/TRNSXJ FLP TUBE ABDL/VAG APPR UNI/BI Tubal ligation PAST SURGICAL HISTORY OF Bronchoscopy PAST SURGICAL HISTORY OF Cervical Discectomy TONSILLECTOMY PRIMARY/SECONDARY <AGE 12 Tonsillectomy FAMILY HISTORY Problem Relation Age of Onset other (Congestive Heart Failure) Mother Breast Cancer Mother Lung Cancer Mother other (other) Father Ischemic Heart Disease Father Emphysema Sister other (other) Maternal Grandmother Diabetes Maternal Grandmother other (other) Paternal Grandfather Social History Tobacco Use Smoking status: Every Day Current packs/day: 1.00 Average packs/day: 1 pack/day for 38.0 years (38.0 ttl pk-yrs) Types: Cigarettes Passive exposure: Current Smokeless tobacco: Never Substance Use Topics Alcohol use: Yes Comment: rare Drug use: No REVIEW OF SYSTEMS GENERAL: No weight loss, malaise or fevers. No night sweats. HEENT: Negative for headaches, No changes in hearing or vision, no nose bleeds or other nasal problems. RESPIRATORY: Negative for cough, wheezing and shortness of breath CARDIOVASCULAR: Negative for chest pain, leg swelling and palpitations GI: Negative for abdominal discomfort, blood in stools or black stools and change in bowel habits : Negative for dysuria, frequency and incontinence MUSCULOSKELETAL: Negative for joint pain or swelling, back pain, and muscle pain. SKIN: Negative for lesions, rash, and itching. HEMATOLOGY/LYMPHOLOGY Negative for prolonged bleeding, bruising easily, and swollen nodes. NEURO: Negative for numbness or tingling of hands/feet. No weakness. PHYSICAL EXAMINATION: There were no vitals taken for this visit. There were no vitals taken for this visit. Last 3 Encounter Wt Readings: Date: Wt: 01/18/2017 65.8 kg (145 lb) 07/13/2016 65.8 kg (145 lb) 04/05/2015 68.3 kg (150 lb 9.6 oz) General appearance:ECOG PERFORMANCE STATUS: 0- Fully active, able to carry on all pre-disease performance w/o restriction. Patient in NAD. Skin: Skin color, texture, turgor normal. No rashes or lesions. Eyes: Anicteric sclera. Pupils are equally round and reactive to light. Extraocular movements are intact. Breast: No palpable breast masses. No nipple change or discharge. Lymph Nodes: No cervical, supraclavicular, axillary or inguinal adenopathy. Oropharynx: Lips, mucosa, and tongue normal. Back: No pain to percussion. Negative SLR test Lungs clear to auscultation, No wheezing or rhonchi Heart: RRR without murmur, gallop, or rubs. Abdomen soft, non-tender. No masses, organomegaly Extremities: No deformities. No edema Neuro: Gait and speech normal. Reflexes normal and symmetric. Muscular strength intact. Sensation grossly intact. Rectal: Deferred : Deferred LABS: Glucose (mg/dL) Date Value 02/11/2015 92 Potassium (mmol/L) Date Value 02/11/2015 4.5 Sodium (mmol/L) Date Value 02/11/2015 138 Chloride (mmol/L) Date Value 02/11/2015 102 CO2 (mmol/L) Date Value 02/11/2015 24 Creatinine (mg/dL) Date Value 02/11/2015 0.63 BUN (mg/dL) Date Value 02/11/2015 13 Anion Gap (mmol/L) Date Value 02/11/2015 12 Calcium (mg/dL) Date Value 02/11/2015 8.3 WBC Date Value Ref Range Status 02/10/2015 7.53 3.70 - 11.00 k/uL Final RBC Date Value Ref Range Status 02/10/2015 5.03 3.90 - 5.20 m/uL Final Hemoglobin Date Value Ref Range Status 02/10/2015 14.9 11.5 - 15.5 g/dL Final Hematocrit Date Value Ref Range Status 02/10/2015 44.4 36.0 - 46.0 % Final MCV Date Value Ref Range Status 02/10/2015 88.3 80.0 - 100.0 fL Final MCH Date Value Ref Range Status 02/10/2015 29.6 26.0 - 34.0 pG Final MCHC Date Value Ref Range Status 02/10/2015 33.6 30.5 - 36.0 g/dL Final RDW-CV Date Value Ref Range Status 02/10/2015 14.3 11.5 - 15.0 % Final Platelet Count Date Value Ref Range Status 02/10/2015 267 150 - 400 k/uL Final MPV Date Value Ref Range Status 02/10/2015 9.0 9.0 - 12.7 fL Final PATH: IMAGING: ASSESSMENT AND PLAN: Carmen Kilgore is a 59 year old year old female referred to us for left lung cancer. H/o CAD s/p PCI, HTN, DLD, COPD. PLAN: - Bronchoscopy showed a large endobronchial lesion completely occluding the lumen of the left lower lobe. Endobronchial biopsies were obtained. - Pathology showed invasive moderately differentiated squamous cell carcinoma. - PET scan scheduled on 06/30/24 at [facility]. - PFTs scheduled on 07/02/24. - Ordered MRI brain. - Check CBC CMP - C/o worsening left shoulder pain. Percocet prescription sent to pharmacy - Nystatin sent to pharmacy for oral thrush. - Further management based on PET scan findings. - All her questions answered in detail. - Follow up in [address] Wing Wright [address] [place] [address] thank you for allowing me to participate in Carmen Kilgore care, if there are any questions or concerns please do not hesitate to contact me at the number below. I spent a total of 60 minutes on the date of the service which included preparing to see the patient, [id number] patient care, completing clinical documentation, obtaining and/or reviewing separately obtained history, performing a medically appropriate examination, counseling and educating the patient/family/caregiver, ordering medications, tests, or procedures, communicating with other HCPs (not separately reported), independently interpreting results (not separately reported), communicating results to the patient/family/caregiver, and care coordination (not separately reported). Tika Valentine MD. Hematology/Medical Oncology [facility] [phone] CC: documented in this encounter [facility] 06-19-2024 Note HNO ID: [id number] Author: TIKA VALENTINE MD Service: ? Author Type: Physician Type: Progress Notes Filed: 06/19/2024 11:25 Note Text: PATIENT NAME: Carmen Kilgore CLINIC NO.: [id number] ATTENDING PHYSICIAN: Tika Valentine MD DATE OF SERVICE: June 19, [address] Wing Wright [address] [place] [address] thank you for referring Carmen Kilgore for an opinion regarding Lung cancer . CHIEF COMPLAINT: Lung cancer HPI: Carmen Kilgore is a 59 year old year old female with PMH of CAD s/p PCI, HTN, DLD, COPD referred to us for lung cancer. CT chest (05/29/24)- Bronchoscopy (06/03/24)- Smoked 1 pk/day for many yrs. Occasional alcohol. On disability. C/o left shoulder pain. . PET scan scheduled on 06/30/24 at [facility]. PFTs scheduled on 07/02/24. Lost 5lbs. Current Outpatient Medications Medication Sig atorvastatin (LIPITOR) 40 mg tablet Take 1 tablet by mouth once daily. BEVESPI AEROSPHERE 9-4.8 mcg Inhale 2 puffs as instructed two times a day. lisinopril (ZESTRIL) 30 mg tablet Take 1 tablet by mouth once daily. isosorbide mononitrate ER (IMDUR) 30 mg 24 hr tablet Take 30 mg by mouth every morning. PULMICORT FLEXHALER 180 mcg/actuation aepb Inhale 2 puffs as instructed two times a day. rosuvastatin (CRESTOR) 40 mg tablet Take 40 mg by mouth daily at bedtime. amLODIPine (NORVASC) 10 mg tablet Take 1 tablet by mouth once daily. clopidogrel (PLAVIX) 75 mg tablet Take 1 tablet by mouth once daily. aspirin, enteric coated (ADULT LOW DOSE ASPIRIN) 81 mg EC tablet Take 1 tablet by mouth once daily. nitroglycerin sublingual (NITROSTAT) 0.4 mg SL tablet Dissolve 1 tablet under the tongue every 5 minutes as needed. VENTOLIN HFA 90 mcg/actuation inhaler Inhale 1 Puff as instructed as needed. No current facility-administered medications for this visit. ALLERGIES Allergen Reactions Dilaudid [Hydromorp* Vomiting PAST MEDICAL HISTORY Diagnosis Date Allergic rhinitis CAD (coronary artery disease) Centrilobular emphysema (HCC) Cervical myelopathy (HCC) COPD (chronic obstructive pulmonary disease) (HCC) GERD (gastroesophageal reflux disease) HTN Hyperlipidemia PAD (peripheral artery disease) Squamous cell carcinoma of lung, left (HCC) PAST SURGICAL HISTORY Procedure Laterality Date CARDIAC CATH 02/01/2015 80-90% mid RCA in-stent restenosis. 60% mid LAD stenosis. Patent mid LCX stenosis. CARDIAC CATH 02/10/2015 Balloon angioplasty of mid RCA in-stent restenosis. No stent CC PCI CORONARY INTERVENT 01/11/2004 Distal RCA Taxus 3.0X20 mm. CC PCI CORONARY INTERVENT 12/29/2010 Distal RCA Xience 3.5X28 mm. Proximal RCA Xience 4.0X28 mm. Mid RCA Xience 3.5X28 mm. CC PCI CORONARY INTERVENT 03/28/2000 RCA 4.0X18 mm. PCI CORONARY INTERVENT 01/26/2011 LCX Xience 2.25X18 mm. LIG/TRNSXJ FLP TUBE ABDL/VAG APPR UNI/BI Tubal ligation PAST SURGICAL HISTORY OF Bronchoscopy PAST SURGICAL HISTORY OF Cervical Discectomy TONSILLECTOMY PRIMARY/SECONDARY Tonsillectomy FAMILY HISTORY Problem Relation Age of Onset other (Congestive Heart Failure) Mother Breast Cancer Mother Lung Cancer Mother other (other) Father Ischemic Heart Disease Father Emphysema Sister other (other) Maternal Grandmother Diabetes Maternal Grandmother other (other) Paternal Grandfather Social History Tobacco Use Smoking status: Every Day Current packs/day: 1.00 Average packs/day: 1 pack/day for 38.0 years (38.0 ttl pk-yrs) Types: Cigarettes Passive exposure: Current Smokeless tobacco: Never Substance Use Topics Alcohol use: Yes Comment: rare Drug use: No REVIEW OF SYSTEMS GENERAL: No weight loss, malaise or fevers. No night sweats. HEENT: Negative for headaches, No changes in hearing or vision, no nose bleeds or other nasal problems. RESPIRATORY: Negative for cough, wheezing and shortness of breath CARDIOVASCULAR: Negative for chest pain, leg swelling and palpitations GI: Negative for abdominal discomfort, blood in stools or black stools and change in bowel habits : Negative for dysuria, frequency and incontinence MUSCULOSKELETAL: Negative for joint pain or swelling, back pain, and muscle pain. SKIN: Negative for lesions, rash, and itching. HEMATOLOGY/LYMPHOLOGY Negative for prolonged bleeding, bruising easily, and swollen nodes. NEURO: Negative for numbness or tingling of hands/feet. No weakness. PHYSICAL EXAMINATION: There were no vitals taken for this visit. There were no vitals taken for this visit. Last 3 Encounter Wt Readings: Date: Wt: 01/18/2017 65.8 kg (145 lb) 07/13/2016 65.8 kg (145 lb) 04/05/2015 68.3 kg (150 lb 9.6 oz) General appearance:ECOG PERFORMANCE STATUS: 0- Fully active, able to carry on all pre-disease performance w/o restriction. Patient in NAD. Skin: Skin color, texture, turgor normal. No rashes or lesions. Eyes: Anicteric sclera. Pupils are equally round an (more content not included)... [facility] 02-21-2023 Evaluation note Encounter Date Diagnosis Assessment [...] no improvement in 2 to 3 days [facility] Other 04-06-2023 Hospital Discharge instructions Patient Education [...] reduces withdrawal symptoms. NRT is available as: ?Uplk-ipo-vdxtmqz gums, lozenges, and skin patches. ?Prescription mouth [...] recovery for many people. General instructions Take rtnh-bnm-nvbamxi and prescription medicines only as told by your health care provider. Check with your health care provider before taking any new prescription or fton-jcd-lsphkyx medicines. Decide on a friend, family member, or smoking quit-line (such as 3-633-RYHH-NOW in the [place] that you can call [...] 11/01/2004 Document Revised: 02/13/2018 Document Reviewed: 02/13/2018 [employer] Patient Education 2020 [employer]. Follow Up Care 05/16/2022 16:17:12 With:Jacky Thomson MD Address: [place] [address]- When:3 months [facility]05-04-2022 Evaluation note* Encounter Date Diagnosis Assessment Notes [...] Other Tendonitis home care material was printed [facility] Other 03-08-2022 Hospital Discharge instructions Follow Up Care 05/17/2021 13:49:05 With:Jacky Thomson MD Address: When:6 months Comments:Call for sooner apt with new/worsening symptoms [facility] Future Appointments Appointment Date:05/16/2022 03:15:00 PM Scheduled Provider:Jacky Thomson MD Location:[facility]Cardiology Clinic Appointment Type:Cardiology Follow [facility] ([facility] Future Appointments Appointment Date:09/14/2022 01:30:00 PM Scheduled Provider:Olga VAIL CNP Location:[facility]Cardiology Clinic Appointment Type:Cardiology [facility] (FT[facility] Future Appointments Appointment Date:12/17/2024 01:15:00 PM Scheduled Provider:Tristin Pickens PA-C Location:[facility]Cardiology Clinic Appointment Type:Cardiology Follow Up (FT) [facility] Evaluation noteNo assessment information available [facility] Work Phone: Evaluation note* Diagnosis Malignant neoplasm of lower lobe of left lung (HCC)- Primary [facility] - [facility]* Type Description Date Medical History hypertension Medical History hypercholesterolemia Medical History COPD Medical History emphysema Surgical History tubal ligation Surgical History tonsillectomy and adenoidectomy Surgical History cervical Hospitalization History See Above [facility] Other History general Narrative - Reported* Type Description Date Medical History hypertension Medical History hypercholesterolemia Medical History COPD Medical History emphysema Surgical History tubal ligation Surgical History tonsillectomy and adenoidectomy Surgical History cervical spine Hospitalization History See Above [facility] Other Hospital course Narrative No data available for this section [facility] No data available for this section [facility] No data available for this section [facility] Summary Purpose Family History No Family History Records Found Relationship Condition Age at Onset Recorded Date/T caden sister Macular degeneration Unknown sister Chronic obstructive pulmonary disease Unk nown Not Specified Malignant neoplasm of breast Unknown Malignant neoplasm of lung Unknown father History of coronary artery bypass surgery Unknown Relationship Condition Age at Onset Recorded Date/T caden sister Macular degeneration Unknown sister Chronic obstructive pulmonary disease Unk nown mother Malignant neoplasm of breast Unknown Malignant neoplasm of lung Unknown father History of coronary artery bypass surgery Unknown father Heart disease Unknown family member Unknown mother Malignant neoplasm Unknown Unknown Advance Directives No Advanced Directives Records Found Advance Directive Response Recorded Date/ Time Advance Directives No August 29 10:44am Advance Directive Response Recorded Date/ Time Advance Directives No August 29 11:44am Additional Source Comments REASON FOR VISIT (unrecogniz ed section and content) RIGHT HAND PAIN AND SWELLING BURNING WHEN URINATING//URINARY URGENCYBURNING WHEN URINATING//URINARY URGENCY Care Team (unrecognized sect ion and content) Team Status: Active Member Role Status Dates Mckayla Givens MD Primary Care Provider Active Team Status: Inactive Member Role Status Dates Mckayla Givens MD Primary Care Provider Active CAL Sprague Attending Provider Active Team Status: Inactive Member Role Status Dates Wing Wright DO Attending Provider Active St art: June 03, 2024 End: June 03, 2024 Supervisor Tumbling And Rolling Relationship Specialty Start Date End Date Ramírez Martins DO PCP - General Family Medicine 01/13/15 Himanshu Darling MD [address] [facility] [address] [place] [id number] Primary Staff Physician Cardiology 05/28/18 Supervisor Tumbling And Rolling Relationship Specialty Start Date End Date Kacey Rivera CNP [address] [place] [address] PCP - General Internal Medicine 06/19/24 Himanshu Darling MD [address] [facility] [address] [place] [address] Primary Staff Physician Cardiology 05/28/18 Supervisor Tumbling And Rolling Relationship Specialty Start Date End Date Kacey Rivera CNP [address] [place] [address] PCP - General Internal Medicine 06/19/24 Himanshu Darling MD [address] [facility] [address] [place] [address] Primary Staff Physician Cardiology 05/28/18 INFORMATION SOURCE (unrecogn ized section and content) DATE CREATED AUTHOR 02/11/2022 [facility] DATE CREATED AUTHOR AUTHOR'S ORGANIZ ATION 06/07/2024 [facility] DATE CREATED AUTHOR AUTHOR'S ORGANIZ ATION 06/20/2024 [facility] DATE CREATED AUTHOR AUTHOR'S ORGANIZ ATION 06/21/2024 [facility] Goals (unrecognized section and content) Goals may be documented in a n alternate section Source Comments (unrecognize d section and content) In the event this informatio n is protected by the Federal Confidentiality of Alcohol and Drug Abuse Patient Records regulations: The Federal rules restrict any use of the information to criminally investigate or prosecute any alcohol or drug abuse patient.[facility] the event this information is protected by the Federal Confidentiality of Alcohol and Drug Abuse Patient Records regulations: The Federal rules restrict any use of the information to criminally investigate or prosecute any alcohol or drug abuse patient.[facility] Center[facility] the event this information is protected by the Federal Confidentiality of Alcohol and Drug Abuse Patient Records regulations: The Federal rules restrict any use of the information to criminally investigate or prosecute any alcohol or drug abuse patient.[facility] FOR RECORDS PERTAINING TO PATIENTS WHO ARE [...] BE BASED ON THE PRIMARY CLINICAL RECORDS. [facility]. provides no warranty or guarantee of the accuracy or completeness of information in this document.
[2024-06-25] MEDS: 0.9 % SODIUM CHLORIDE 1,000 ML 1000 ML IV (12:21)
[2024-06-25 12:25] LABS: Basophils Absolute Auto 0.1 10^3/uL (0.0-0.1); Basophils Percent Auto 0.7 % (0.2-2.0); Eosinophils Absolute Auto 0.1 10^3/uL (0.0-0.7); Eosinophils Percent Auto 0.7 % (0.9-7.0); Hemoglobin 15.4 g/dL (12.0-16.0); Immature Granulocytes Abs Auto 0.07 10^3/uL (0.00-0.03); Immature Granulocytes Pct Auto 0.6 % (0.0-0.5); Lymphocytes Absolute Auto 1.4 10^3/uL (1.2-3.8); Lymphocytes Percent Auto 12.7 % (20.5-60.0); Mean Corpuscular HGB Conc 34.2 g/dL (29.9-35.2); Mean Corpuscular Hemoglobin 31.6 pg (26.7-34.0); Mean Corpuscular Volume 92.2 fL (81.0-99.0); Mean Platelet Volume 8.6 fL (9.5-13.5); Monocytes Percent Auto 9.3 % (1.7-12.0); Neutrophils Absolute Auto 8.2 10^3/uL (1.4-6.5); Platelet Count 356 10^3/uL (150-450); Red Blood Count 4.88 10^6/uL (4.20-5.40); Red Cell Distribution Width 12.4 % (11.0-15.0); White Blood Count 10.9 10^3/uL (4.0-11.0)
[2024-06-25 12:43] LABS: Lactate/Lactic Acid 1.4 mmol/L (0.4-2.0)
[2024-06-25 12:50] LABS: Alanine Aminotransferase 35 U/L (14-59); Albumin Globulin Ratio 0.7; Albumin Level 3.2 g/dL (3.4-5.0); Alkaline Phosphatase 183 U/L (46-116); Anion Gap 13.6; Aspartate Amino Transferase 110 U/L (15-37); Bilirubin Total 0.7 mg/dL (0.2-1.0); Chloride 96 mmol/L (98-107); Estimated GFR (African America >60 (>=60 mL/min/1.73m^2); Estimated GFR (Non-African Ame >60 (>=60 mL/min/1.73m^2); Globulin 4.3 g/dL; Glucose 86 mg/dL (74-106); Potassium 4.6 mmol/L (3.5-5.1); Sodium 131 mmol/L (136-145); Total Protein 7.5 g/dL (6.4-8.2); Troponin I High Sensitivity 11.7 pg/mL (4.0-51.3)
[2024-06-25 12:51] LABS: Bilirubin Urine SMALL (NEGATIVE); Blood Urine NEGATIVE (NEGATIVE); Clarity Urine CLEAR (CLEAR); Color Urine LT. YELLOW (YELLOW); Glucose Urine UA NEGATIVE (NEGATIVE); Ketones Urine 40 mg/dL (NEGATIVE); Leukocyte Esterase Urine SMALL (NEGATIVE); Nitrite Urine NEGATIVE (NEGATIVE); Protein Urine NEGATIVE (NEG/TRACE); Urobilinogen Urine 0.2 EU/dL (0.2-1.0)
[2024-06-25 12:53] LABS: Urine Microscopic Indicated YES
[2024-06-25 12:55] LABS: Calcium 14.1 mg/dL (8.5-10.1)
[2024-06-25 12:59] LABS: Bacteria Urine TRACE #/HPF (NONE SEEN); RBC Urine 0-2 #/HPF (0-2)
[2024-06-25 13:00] LABS: Cast Seen? NONE SEEN #/LPF (NONE SEEN); Crystals Seen? None Seen #/HPF (None Seen); Mucus Urine TRACE (NONE SEEN); Squamous Epithelial Cell Urine MODERATE #/LPF (NONE/RARE)
[2024-06-25 13:01] LABS: Urine Culture Indicated YES-FRMC
[2024-06-25 13:41] VITALS: BP 126/88; PULSE 88; O2SAT 98
== END 2024-06-25 13:42 | disposition home or self-care (01) ==
PROVIDERS: Emergency Provider Emergency Medicine; PCP Nurse Practitioner Family
DX: E86.0 Dehydration (principal); R53.1 Weakness; C34.90 Malignant neoplasm of unspecified part of unspecified bronchus or lung; B37.0 Candidal stomatitis; Z98.51 Tubal ligation status; Z95.5 Presence of coronary angioplasty implant and graft; F17.210 Nicotine dependence, cigarettes, uncomplicated
CPT/HCPCS: 36415; 71045; 80053; 81001; 83605; 84484; 85025; 87040; 87086; 93005; 99285

== ENCOUNTER 2024-06-30 15:03 | Outpatient (OUT) | payer OTHER, MEDICARE, SELFPAY ==
--- NOTE | 2024-06-30 15:06 | PE_ITS ---
The [address] [address] Patient Name: ANABEL KILGORE MRN: [id number] date: 1965 Sex: F Assigned Patient Location: PETCT Current Patient Location: Accession/Order Number: [id number] Exam Date: 07/03/2024 15:18 Report Date: 07/03/2024 15:52 At the request of: WING WRIGHT DO Procedure: PET skull to mid thigh PET/CT WITH FUSION COMPARISON: Chest CT 05/19/2024 CLINICAL DATA: Recently diagnosed lung cancer. Following the intravenous administration of 15.82 mCi of FDG, SPECT imaging in 3 planes was performed from above the orbits through the groin the patient's blood glucose level at the time the ejection was 80 mg/dL. Spiral unenhanced CT was also performed for anatomic localization. The PET and CT images were fused. This CT exam was performed using one or more following dose reduction techniques: Automated exposure control, adjustment of the mA and/or kV according to patient size, or use of iterative reconstruction technique. NECK: No enlarged or hypermetabolic lymph nodes are identified. CHEST: A hypermetabolic AP window lymph node is identified with SUV of 13. There is subcarinal adenopathy with increase FDG uptake and SUV of 22. There is also a large irregular area of increased FDG uptake at the left hilum with SUV up to 26. This is presumed to be patient's primary malignancy with metastatic mediastinal lymph nodes. The left lower lobe consolidation on the comparison CT has improved. There are still some patchy parenchymal changes at the lower lobe with areas having increased FDG uptake with SUV ranging from 4.4 to 9. A small subcutaneous nodule is seen adjacent to the muscles overlying the inferior left scapula. The SUV measurement is approximately 11 . There is slight increased FDG uptake at the distal thoracic esophagus that may be physiologic. ABDOMEN/PELVIS: There is a large area of increased FDG uptake encompassing almost the entire left hepatic lobe (SUV 23). There is subtle corresponding heterogeneity on the enhanced CT images. There are some smaller satellite areas within the adjacent liver. There is also a 15 mm hypermetabolic nodule (SUV 32) adjacent to the inferior tip of the right hepatic lobe. There is no pathologic adrenal gland uptake. There are no other enlarged or hypermetabolic abdominal or pelvic lymph nodes. There is physiologic activity involving the urinary tract and bowel. There is left nephrolithiasis and bilateral renal hypodensities suggesting cysts. There is descending and sigmoid diverticular disease. A fibroid uterus is noted. PET/PET skull to mid thigh IMPRESSION: HYPERMETABOLIC LEFT HILAR AND LEFT LOWER LOBE SATELLITE LESIONS COMPATIBLE WITH KNOWN MALIGNANCY. FDG AVID MEDIASTINAL ADENOPATHY. HYPERMETABOLIC SUBCUTANEOUS NODULE AT THE LEFT POSTERIOR CHEST WALL. THIS COULD BE A METASTATIC LYMPH NODE. LARGE AREA OF HYPERMETABOLISM INVOLVING THE LEFT HEPATIC LOBE WITH ADJACENT SATELLITE LESIONS. THIS IS ALSO CONCERNING FOR MALIGNANCY. FDG AVID INTRAPERITONEAL NODULE INFERIOR TO THE RIGHT HEPATIC LOBE. Impression dictated by: Adelaide Arroyo M.D.07/03/2024 3:52 PM Dictation Location: [place] [address] Electronically authenticated by: [id number] Y Date: 07/03/2024 15:52
== END 2024-06-30 15:04 | disposition home or self-care (01) ==
LOC: PETCT 15:03
PROVIDERS: PCP Nurse Practitioner Family; Visit Provider Internal Medicine
DX: C34.32 Malignant neoplasm of lower lobe, left bronchus or lung (principal); R91.8 Other nonspecific abnormal finding of lung field
CPT/HCPCS: 78815; A9552

== ENCOUNTER 2024-07-02 11:05 | Outpatient (OUT) | payer OTHER, MEDICARE, SELFPAY | END 2024-07-02 11:06 | disposition home or self-care (01) | LOC: CARD 11:06 | PROVIDERS: PCP Nurse Practitioner Family; Visit Provider Internal Medicine | DX: C34.92 Malignant neoplasm of unspecified part of left bronchus or lung (principal); J43.2 Centrilobular emphysema ==

== ENCOUNTER 2024-07-02 18:31 | Emergency (ER) | payer OTHER, MEDICARE, SELFPAY ==
[2024-07-02] VITALS (28 sets, daily range): BP systolic 92–105; BP diastolic 61–76; PULSE 71–107; TEMP 36.6; O2SAT 89–99; BMI 20.5
--- NOTE | 2024-07-02 19:45 | ED_ITS ---
HPI - Weakness General Chief complaint: Weakness Stated complaint: WEAKNESS, POSS DEHYDRATION Time Seen by Provider: 07/02/24 19:40 Source: patient Mode of arrival: walk-in History of Present Illness HPI Narrative: patient past history of cigarette use disorder. States one month ago had screening CT chest with findings of Lung CA. During past 3-4 weeks her intake has decreased. she is now very weak and need assistance to walk. Recent PET scan this past week with results pending. Has lower back pain which is new for her. prescribed Percocet for the pain and took one today. No headache or chest pain. she is not short of breath. Just weak Working with oncologist Dr Roman from [facility] via [employer] Home Medications ?Medication ?Instructions ?Recorded ?Confirmed albuterol sulfate 90 mcg/actuation 2 inh inhalation Q4H PRN shortness 05/26/24 05/26/24 aerosol inhaler of breath or wheezing aspirin 81 mg chewable tablet 1 tab PO DAILY 05/26/24 06/03/24 atorvastatin 40 mg tablet 40 mg PO DAILY 05/26/24 06/03/24 budesonide 180 mcg/actuation 2 inh inhalation Q12H 05/26/24 06/03/24 breath activated powder inhaler (Pulmicort Flexhaler) glycopyrrolate 9 mcg-formoterol 2 inh inhalation Q12H 05/26/24 06/03/24 4.8 mcg HFA aerosol inhaler (Bevespi Aerosphere) ipratropium 0.5 mg-albuterol 3 mg 3 ml inhalation QID PRN shortness 05/26/24 05/26/24 (2.5 mg base)/3 mL nebulization of breath or wheezing soln isosorbide mononitrate 30 mg 30 mg PO DAILY 05/26/24 06/03/24 tablet,extended release 24 hr lisinopril 30 mg tablet 30 mg PO DAILY 05/26/24 06/03/24 nitroglycerin 0.4 mg sublingual 0.4 mg sublingual Q5M PRN chest 05/26/24 06/03/24 tablet pain Previous Rx's ?Medication ?Instructions ?Recorded ondansetron 4 mg disintegrating 4 mg PO DAILY PRN nausea and 06/25/24 tablet vomiting #15 tabs Allergies Allergy/AdvReac Type Severity Reaction Status Date / Time hydromorphone (From Dilaudid) Allergy Vomiting Verified 06/03/24 07:03 Review of Systems ROS Status of ROS 10 or more systems reviewed and unremark able except as noted in history and below [facility] Medical History (Updated 07/03/24 @ 00:10 by Oneil Brady MD) Arthritis ?M19.90 - Unspecified osteoarthritis, unspecified site (ICD-10) Migraine ?G43.909 - Migraine, unspecified, not intractable, without status migrainosus (ICD-10) Myocardial infarction ?I21.9 - Acute myocardial infarction, unspecified (ICD-10) High cholesterol ?E78.00 - Pure hypercholesterolemia, unspecified (ICD-10) Ectopic , tubal ?O00.109 - Unspecified tubal without intrauterine (ICD- 10) Cervical myelopathy with cervical radiculopathy ?G95.9 - Disease of spinal cord, unspecified (ICD-10) ?M54.12 - Radiculopathy, cervical region (ICD-10) Intermittent claudication ?I73.9 - Peripheral vascular disease, unspecified (ICD-10) Hyperlipidemia ?E78.5 - Hyperlipidemia, unspecified (ICD-10) GERD (gastroesophageal reflux disease) ?K21.9 - Gastro-esophageal reflux disease without esophagitis (ICD-10) Allergic rhinitis ?J30.9 - Allergic rhinitis, unspecified (ICD-10) Centrilobular emphysema ?J43.2 - Centrilobular emphysema (ICD-10) Collapsed lung ?J98.19 - Other pulmonary collapse (ICD-10) PAD (peripheral artery disease) ?I73.9 - Peripheral vascular disease, unspecified (ICD-10) Hypertension ?I10 - Essential (primary) hypertension (ICD-10) COPD (chronic obstructive pulmonary disease) ?J44.9 - Chronic obstructive pulmonary disease, unspecified (ICD-10) CAD (coronary artery disease) ?I25.10 - Atherosclerotic heart disease of [place] coronary artery without angina pectoris (ICD-10) Surgical History (Updated 05/26/24 @ 14:46 by Allison Moses NP) History of spinal surgery ?Z98.890 - Other specified postprocedural states (ICD-10) History of tubal ligation ?Z98.51 - Tubal ligation status (ICD-10) History of tonsillectomy and adenoidectomy ?Z90.89 - Acquired absence of other organs (ICD-10) H/O heart artery stent ?Z95.5 - Presence of coronary angioplasty implant and graft (ICD-10) History of cardiac catheterization ?Z98.890 - Other specified postprocedural states (ICD-10) Family History (Updated 05/26/24 @ 14:46 by Allison Moses NP) Other Family history of diabetes mellitus Family history of heart disease Family history of lung cancer Family history of myocardial infarction Social History (Updated 05/26/24 @ 14:40 by Allison Moses NP) Within the past year, how often did you have a drink containing alcohol: 2-4 times a month Smoking status: Current every day smoker What tobacco products do you use: cigarettes Packs per day: 1 Years smoked: 45 Smoking pack-years: 45.00 Non-prescribed substance use: denies use Highest level of school completed/degree received: high school graduate Little interest or pleasure in doing things: not at all Feeling down, depressed, or hopeless: not at all Exam Constitutional Vital Signs, click to edit/add: Last Vital Signs Temp 97.9 F 07/02/24 18:37 Pulse 75 07/02/24 23:30 Resp 17 07/02/24 23:30 BP 102/73 07/02/24 23:30 Pulse Ox 97 07/02/24 23:30 O2 Del Method Room Air 07/02/24 20:24 Common normals: no apparent distress, oriented x3 and alert Other: appears weak HENMT Common normals: normocephalic and head/scalp atraumatic Eye Common normals: EOMs intact bilaterally and conjunctivae normal Respiratory Common normals: normal respiratory effort, no retractions, no use of accessory muscles and clear to auscultation bilaterally Cardio Common normals: regular rate, regular rhythm, S1 normal heart sound and S2 normal heart sound GI Common normals: Normal to inspection, nondistended, normoactive bowel sounds present, soft to palpation and non-tender Back & Pelvis Common normals: thoracic and lumbar spine normal to inspection and no thoracic nor lumbar tenderness Extremity Common normals: normal to inspection and full ROM Neuro Common normals: oriented x3, CN's II-XII intact bilaterally, moves all extremiti es and no focal motor deficits Psych Appearance: grossly normal Course Vital Signs Vital signs: Vital Signs Temperature 97.9 F 07/02/24 18:37 Pulse Rate 107 H 07/02/24 18:37 Respiratory Rate 18 07/02/24 18:37 Blood Pressure 101/76 07/02/24 18:37 Pulse Oximetry 90 L 07/02/24 18:37 Oxygen Delivery Method Room Air 07/02/24 18:37 Temperature 97.9 F 07/02/24 18:37 Pulse Rate 75 07/02/24 23:30 Respiratory Rate 17 07/02/24 23:30 Blood Pressure 102/73 07/02/24 23:30 Pulse Oximetry 97 07/02/24 23:30 Oxygen Delivery Method Room Air 07/02/24 20:24 MDM - Weakness MDM Narrative Medical decision making narrative: patient with new diagnosis of lung CA. PET scan this past week. Report not available. Presents with gen. weakness and poor intake for the past couple of weeks. Need assistance to walk. No chest pain. Labs demonstrate elevated troponin at 58. repeat troponin 3 hours later unchanged. EKG with low voltage and elevation ST inferior leads but unchanged from EK06/25/24. cxray without acute findings. labs with evidence of acute renal failure and severe hypercalcemia. Calcium is 19.1. Discussed with Oncologist Dr Serrato who recommends patient is transferred to either [place] or [place] for care. She is currently being hydrated with normal saline. patient accepted by hospitalist Dr Domingo at [place] Lab Data Labs: Lab Results 07/02/24 07/02/24 Range/Units 19:55 21:47 WBC 12.6 H (4.0-11.0) 10^3/uL RBC 5.13 (4.20-5.40) 10^6/uL Hgb 16.4 H (12.0-16.0) g/dL Hct 47.1 (36.0-48.0) % MCV 91.8 (81.0-99.0) fL MCH 32.0 (26.7-34.0) pg MCHC 34.8 (29.9-35.2) g/dL RDW 12.5 (11.0-15.0) % Plt Count 282 (150-450) 10^3/uL MPV 9.8 (9.5-13.5) fL Neut % (Auto) 75.0 (43.0-75.0) % Lymph % (Auto) 12.1 L (20.5-60.0) % [place] % (Auto) 10.7 (1.7-12.0) % Eos % (Auto) 0.6 L (0.9-7.0) % Baso % (Auto) 0.6 (0.2-2.0) % Neut # (Auto) 9.4 H (1.4-6.5) 10^3/uL Lymph # (Auto) 1.5 (1.2-3.8) 10^3/uL [place] # (Auto) 1.4 H (0.3-0.8) 10^3/uL Eos # (Auto) 0.1 (0.0-0.7) 10^3/uL Baso # (Auto) 0.1 (0.0-0.1) 10^3/uL Abs Immat Gran (auto) 0.13 H (0.00-0.03) 10^3/uL Imm/Tot Granulo (auto) 1.0 H (0.0-0.5) % Sodium 133 L (136-145) mmol/L Potassium 4.7 (3.5-5.1) mmol/L Chloride 93 L (98-107) mmol/L Carbon Dioxide 29.2 (21.0-32.0) mmol/L Anion Gap 15.5 BUN 37.0 H (7.0-18.0) mg/dL Creatinine 1.57 H (0.55-1.02) mg/dL Est GFR ( Amer) 41 L (>=60 mL/min/1.73m^2) Est GFR (Non-Af Amer) 34 L (>=60 mL/min/1.73m^2) BUN/Creatinine Ratio 23.6 Glucose 88 (74-106) mg/dL Calcium 19.1 H* (8.5-10.1) mg/dL Magnesium 1.3 L (1.8-2.4) mg/dL Total Bilirubin 0.8 (0.2-1.0) mg/dL AST 173 H (15-37) U/L ALT 54 (14-59) U/L Alkaline Phosphatase 148 H (46-116) U/L Troponin I High Sens 58.8 H* 58.4 H* (4.0-51.3) pg/mL Total Protein 7.3 (6.4-8.2) g/dL Albumin 3.1 L (3.4-5.0) g/dL Globulin 4.2 g/dL Albumin/Globulin Ratio 0.7 Discharge Plan Discharge Chief Complaint: Weakness Clinical Impression: Dehydration, Weakness, Hypercalcemia, Acute renal failure (ARF) Patient Disposition: [facility]
--- NOTE | 2024-07-02 19:48 | ECG_ITS ---
The [facility] Test Date: 2024-07-02 Pat Name: ANABEL KILGORE Department: Room: - Gender: Female [employer]: : 1965 Requested By: [id number] Order Number: [id number] Reading MD: RIK DUONG M.D. Measurements Intervals [place] Rate: 101 P: 54 [place]: 158 QRS: -13 QRSD: 98 T: 62 QT: 302 QTc: 360 Interpretive Statements 1120 Sinus tachycardia 16791 Inferior myocardial infarction with posterior extension, possibly acute 8102 Low QRS voltage in chest leads 9150 abnormal ECG Compared to ECG 06/25/2024 12:09:37 No significant changes Electronically Signed On 07-03-2024 20:41:35 EDT by RIK DUONG M.D.
--- NOTE | 2024-07-02 20:25 | PC.NURSE ---
spo2 at 88-90% on room air, patient with wheezing and h/o lung cancer. She is started on 2L O2 per nc.
[2024-07-02 20:29] LABS: Basophils Absolute Auto 0.1 10^3/uL (0.0-0.1); Basophils Percent Auto 0.6 % (0.2-2.0); Eosinophils Absolute Auto 0.1 10^3/uL (0.0-0.7); Eosinophils Percent Auto 0.6 % (0.9-7.0); Hematocrit 47.1 % (36.0-48.0); Hemoglobin 16.4 g/dL (12.0-16.0); Immature Granulocytes Abs Auto 0.13 10^3/uL (0.00-0.03); Lymphocytes Absolute Auto 1.5 10^3/uL (1.2-3.8); Lymphocytes Percent Auto 12.1 % (20.5-60.0); Mean Corpuscular HGB Conc 34.8 g/dL (29.9-35.2); Mean Corpuscular Volume 91.8 fL (81.0-99.0); Mean Platelet Volume 9.8 fL (9.5-13.5); Monocytes Absolute Auto 1.4 10^3/uL (0.3-0.8); Monocytes Percent Auto 10.7 % (1.7-12.0); Neutrophils Absolute Auto 9.4 10^3/uL (1.4-6.5); Platelet Count 282 10^3/uL (150-450); Red Blood Count 5.13 10^6/uL (4.20-5.40); Red Cell Distribution Width 12.5 % (11.0-15.0); White Blood Count 12.6 10^3/uL (4.0-11.0)
[2024-07-02] MEDS: 0.9 % SODIUM CHLORIDE 1,000 ML 999 ML IV ×3 (20:41→23:25)
[2024-07-02] MEDS: FENTANYL CITRATE/PF 100 MCG/2 ML VIAL 50 MCG IV (20:42)
[2024-07-02 21:03] LABS: Anion Gap 15.5; Carbon Dioxide 29.2 mmol/L (21.0-32.0); Chloride 93 mmol/L (98-107); Potassium 4.7 mmol/L (3.5-5.1); Sodium 133 mmol/L (136-145)
[2024-07-02 21:04] LABS: Alanine Aminotransferase 54 U/L (14-59); Albumin Globulin Ratio 0.7; Albumin Level 3.1 g/dL (3.4-5.0); Alkaline Phosphatase 148 U/L (46-116); Aspartate Amino Transferase 173 U/L (15-37); BUN Creatinine Ratio 23.6; Bilirubin Total 0.8 mg/dL (0.2-1.0); Estimated GFR (African America 41 (>=60 mL/min/1.73m^2); Estimated GFR (Non-African Ame 34 (>=60 mL/min/1.73m^2); Globulin 4.2 g/dL; Glucose 88 mg/dL (74-106); Total Protein 7.3 g/dL (6.4-8.2)
[2024-07-02 21:05] LABS: Calcium 19.1 mg/dL (8.5-10.1); Troponin I High Sensitivity 58.8 pg/mL (4.0-51.3)
[2024-07-02 21:12] LABS: Magnesium 1.3 mg/dL (1.8-2.4)
[2024-07-02 22:09] LABS: Troponin I High Sensitivity 58.4 pg/mL (4.0-51.3)
[2024-07-02] MEDS: FAMOTIDINE 20 MG TABLET 40 MG PO (22:35)
[2024-07-03] VITALS (25 sets, daily range): BP systolic 87–109; BP diastolic 64–74; PULSE 60–74; O2SAT 93–99
== END 2024-07-03 04:27 | disposition short-term general hospital (02) ==
PROVIDERS: Emergency Provider Internal Medicine; PCP Nurse Practitioner Family
DX: N17.9 Acute kidney failure, unspecified (principal); E86.0 Dehydration; E83.52 Hypercalcemia; R53.1 Weakness; C34.92 Malignant neoplasm of unspecified part of left bronchus or lung; J43.2 Centrilobular emphysema; Z98.51 Tubal ligation status; Z95.5 Presence of coronary angioplasty implant and graft; F17.210 Nicotine dependence, cigarettes, uncomplicated
CPT/HCPCS: 36415; 71045; 80053; 81001; 83735; 84484; 85025; 93005; 96361; 96374; 99285; J3010